=== PATIENT | female | born 1995 | race Caucasian/White ===

== ENCOUNTER 2017-12-14 11:55 | Outpatient (REF) | payer OTHER, MEDICAID, SELFPAY ==
[2017-12-14 15:03] LABS: *AMPHETAMINES SCREEN URINE Negative (Negative); *BARBITURATES SCREEN URINE Negative (Negative); *BENZODIAZEPINES SCREEN URINE Negative (Negative); Cannabinoids THC Negative (Negative); Cocaine Screen,Urine Negative (Negative); METHADONE URINE SCREEN Negative (Negative); OPIATES URINE SCREEN Negative (Negative)
[2017-12-14 15:04] LABS: Tricyclic Antidepressants Negative (Negative)
[2017-12-15 14:02] LABS: Chlamydia Result Negative; GC Result Negative; Specimen Description CERVIX
== END 2017-12-14 12:15 ==
LOC: LBN 11:55
PROVIDERS: PCP Specialist/Technologist Athletic Trainer; Visit Provider Advanced Practice Midwife
DX: N76.0 Acute vaginitis (principal); B96.89 Other specified bacterial agents as the cause of diseases classified elsewhere; Z11.3 Encounter for screening for infections with a predominantly sexual mode of transmission; Z34.91 Encounter for supervision of normal pregnancy, unspecified, first trimester
CPT/HCPCS: 80307; 87491; 87591; 87086; 87480; 87510; 87660

== ENCOUNTER 2017-12-14 12:56 | Outpatient (CLI) | payer OTHER, MEDICAID, SELFPAY ==
[2017-12-14 13:44] LABS: Abs Immature Grans 0.01 k/cumm (0.0-0.09); Absolute Basophil Count 0.01 k/cumm (0.0-0.2); Absolute Eosinophil Count 0.06 k/cumm (0.0-0.7); Absolute Lymphocyte Count 1.99 k/cumm (1.2-3.4); Absolute Monocyte Count 0.58 k/cumm (0.11-0.7); Absolute Neutrophil Count 5.33 k/cumm (1.2-6.7); Basophils % 0.1; Eosinophils % 0.8; HCT 37.7 % (36.0-46.0); HGB 12.9 g/dL (12.0-15.5); Immature Grans % 0.1; Lymphocytes % 24.9; Mean Corp. HGB Concentration 34.2 g/dL (32.0-36.0); Mean Corpuscular Hemoglobin 29.7 pg (27.0-33.0); Mean Corpuscular Volume 86.9 fL (80-95); Monocytes % 7.3; Neutrophils % 66.8; Platelet Count 224 x1000/uL (130-400); RBC 4.34 m/cumm (4.00-5.20); RBC Distribution Width 12.6 % (11.7-14.6); White Blood Cell Count 7.98 k/cumm (4.4-10.8)
[2017-12-15 09:52] LABS: Hepatitis B Surface Ag Negative (NEGAT)
[2017-12-15 10:05] LABS: HIV-1/2 Ag & Ab Screen Negative (NEGAT)
[2017-12-15 10:09] LABS: Hepatitis C Ab w Rflx HCV PCR Negative (NEGAT)
[2017-12-15 13:07] LABS: Syphilis Serology (RPR) Negative (Negative)
[2017-12-15 14:09] LABS: Rubella IgG Ab (UVM) Positive
== END 2017-12-14 13:16 ==
PROVIDERS: PCP Specialist/Technologist Athletic Trainer; Visit Provider Advanced Practice Midwife
DX: Z34.91 Encounter for supervision of normal pregnancy, unspecified, first trimester (principal)
CPT/HCPCS: 36415; 80055; 86850; 86900; 86901

== ENCOUNTER 2018-02-10 00:59 | Outpatient (CLI) | payer OTHER, MEDICAID, SELFPAY ==
--- NOTE | 2018-02-10 14:17 | DI.US_ITS ---
SYMPTOMS/DIAGNOSIS: ANATOMY SURVEY, Z34.90 OBSTETRICAL ULTRASOUND: Many abnormalities cannot be diagnosed. A normal exam does not exclude a congenital anomaly. Radiology No. [id number] LMP: Exam Date: 02/10/18 [facility] wks days on EDC ([facility]) 07/07/18 Confirmed: HISTORY: ---- PREDICTED GESTATIONAL AGE NUMBER 19+0 weeks with a range of 18+0 weeks to 20+0 weeks. 1 Determined by___1STUS___LMP___HISTORY PLACENTA PRESENTATION Grade I Cephalic___ Anterior_X__Posterior___ Breech____ Right Left Transverse(head right___ Fundal___Low-lying___Previa___ Transverse(head left___ Varying__X____ BIOMETRY AMNIOTIC FLUID BPD: 44 mm 19+2 weeks Normal HC: 165 mm 19+1 weeks AC: 142 mm 19+4 weeks FL: 29 mm 19+0 weeks AMNIOTIC FLUID INDEX >26 WK CRL: mm weeks Cisterna Magna: 4 mm CI: 79 RUQ: LUQ Cerebellum: 1.9 cm EFW: 286 grams Percentile RLQ: LLQ Total: cms Composite AGE= 19+2 wks EDC by US: 07/05/18 BIOPHYSICAL PROFILE ANATOMY IDENTIFIED SCORE 0/2 Heart: 4-Chamber_X__Rate:BPM 153 LVOT:____X RVOT:____X____ Amniotic Fluid(>2cms)____ Stomach:___X____ Kidneys:___X____ Respirations (>30 secs) Bladder:___X Post. Fossa:__X Body Flex/Extension 3-vessel cord:___X____Ventricles:___X Cord insertion:__X___ Lips:__X__ Extremity Flex/Extension Spinal morphology:__X Nose:__X___ Total Score= Palate:_X NS=not seen COMMENTS: Routine examination was performed. There is a single living intrauterine gestation. Estimated sonographic age is 19 weeks 2 days. No or placental abnormalities are identified. Please refer to the accompanying data sheets for complete details.
== END 2018-02-10 01:19 ==
PROVIDERS: PCP Specialist/Technologist Athletic Trainer; Visit Provider Advanced Practice Midwife
DX: Z34.92 Encounter for supervision of normal pregnancy, unspecified, second trimester (principal)
CPT/HCPCS: 76805

== ENCOUNTER 2018-04-05 13:53 | Outpatient (REF) | payer OTHER, MEDICAID, SELFPAY | END 2018-04-05 14:13 | LOC: LBN 13:53 | PROVIDERS: PCP Specialist/Technologist Athletic Trainer; Visit Provider Advanced Practice Midwife | DX: O26.893 Other specified pregnancy related conditions, third trimester (principal); R30.0 Dysuria | CPT/HCPCS: 87086 ==

== ENCOUNTER 2018-04-07 10:35 | Observation (INO) | payer OTHER, MEDICAID, SELFPAY ==
[2018-04-07 11:16] VITALS: BP 132/74; PULSE 118; RESP 18; TEMP 37; O2SAT 96
--- NOTE | 2018-04-07 11:32 | W.ED.GENAD ---
Discharge Plan Disposition Condition: Improving Discharge Details Chief Complaint: Urinary Reason For Visit: IUP @27W EGA, L HYDORNEPHROSIS, FLANK PAIN AND HEM Admit Date/Time: 04/07/18 14:41 Admit Provider: Coral Frank Attending Provider: Coral Frank Primary Care Provider: Bryant Wu ED Provider: Preeti Scherer Discharge Instructions Activity:: Activity as Tolerated Equipment/Supplies:: No Equipment Needed Diet:: As Tolerated Discharge Orders Discharge Orders: Discharge Order (Routine); Ordered 04/08/18 Ordered By: Coral Frank Discharge Data Discharge Date/Time-TO BE ENTERED AT DEPARTURE: 04/07/18 15:13 Medical Decision Making Sarah Boyd is a 22 y/o woman at 27 weeks GA presenting to the ED with left flank pain, nausea, fatigue. Pt without CVA or abd TTP on exam. Tachycardic. Concern for renal stone vs pyelo vs other, dehydration. Plan for UA, renal US, IVF hydration. Tylenol for pain. US per radiology: b/l mild-mod hydro, somewhat worse on left. RBCs in urine without evidence of infection. Given tachycardia, non-definitive imaging, plan for admission to OB for observation and IVF. Pt is amenable to the plan. Clinical Impression: flank pain, tachycardia Dispositon: [facility] inpatient Medical Records Medical records reviewed: Yes I reviewed the patient's medical records. Lab Data Lab results reviewed: Yes I reviewed the patient's lab results. HPI General Mode of arrival: ambulatory. Date/Time Provider Initiated Documentation: 04/07/18 11:31. Limitations to Documentation: no limitations. Information obtained by: patient, family, RN notes reviewed and old records reviewed. HPI Narrative: Sarah Boyd is a 22 y/o woman with history of asthma presenting to the emergency department with left-sided flank pain and dark urine. Patient is 27 weeks , , followed here by home health caregiver service. Patient reports that she has had an uncomplicated to date. One week ago she started to develop nausea and fatigue. 2 days ago she noticed that her urine seemed dark as if there was blood in it. Yesterday she developed left-sided flank pain, which is constant but does worsen and improve intermittently. Patient reports that her urine has remained dark. She reports that the baby is moving as usual. She has not had any vaginal bleeding. No trauma. No history of kidney stones. She denies fevers, any other pain, vomiting, diarrhea, shortness of breath, cough. No recent travel. Related Data Home Medications Medication Instructions Recorded Confirmed epinephrine [EpiPen 2-Morgan] 0.3 mg IM ONCE #1 pack 11/26/13 04/07/18 cetirizine [Zyrtec] 10 mg PO PRN PRN #30 tab-cap 09/10/14 04/07/18 ProAir HFA 2 puff INHALATION Q4H PRN #1 12/16/14 04/07/18 inhaler vitamin#30 30 mg iron-10 1 cap PO DAILY #90 cap 12/14/17 04/07/18 mg iron-folic acid 1 mg-omg3 capsule oxycodone 5 mg tablet 5 mg PO Q6H PRN #5 tab MDD 4 04/08/18 Previous Rx's Medication Instructions Recorded vitamin#30 30 mg iron-10 1 cap PO DAILY #90 cap 12/14/17 mg iron-folic acid 1 mg-omg3 capsule oxycodone 5 mg tablet 5 mg PO Q6H PRN #5 tab MDD 4 04/08/18 Allergies Allergy/AdvReac Type Severity Reaction Status Date / Time Sulfa (Sulfonamide Allergy Mild RASH Unverified 04/07/18 11:23 Antibiotics) shellfish derived Allergy hives Unverified 04/07/18 11:23 General Stated Complaint: Urinary JOLYNN: 3 Review of Systems Review of Systems Constitutional: denies fevers, reports fatigue Eyes: denies eye pain ENT: denies facial pain, dental pain, sore throat Cardiovascular: denies chest pain, edema Respiratory: denies SOB, cough GI: denies abdominal pain, vomiting, diarrhea, reports nausea : denies dysuria, reports flank pain MSK: denies back pain, neck pain, arthralgias, myalgias Skin: denies rash Neuro: denies headaches, numbness, weakness PFSH Medical History Amblyopia Herpes labialis Closed fracture of lower end of radius and ulna (Resolved) Closed fracture of elbow (Resolved) Hematuria (Acute) (Acute) Renal colic on left side (Acute) Contraception (Resolved) Family history of factor V Leiden mutation (Resolved) Social History adopted: No household members: spouse, children and other details: H- Cezar, D- Martha half-way: No current occupational status: employed 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[facility], [employer]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 [facility] Smoking/Tobacco Use Status: Never alcohol intake: never seatbelt use: always helmet use: Yes drive intox or ride w/ intox 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 water heater temp set < 120 deg: Yes working smoke detector in home: Yes fire extinguisher in home: Yes carbon monox detector in home: Yes firearms in home: Yes firearms unloaded and locked: No victim of physical abuse: No victim of emotional abuse: No victim of sexual abuse: No History History 2 Para Hx # Term Pregnancies Multiple births 0 Hx # Pregnancies Ectopic pregnancies 0 AB induced 0 Hx Number of Living Children 1 AB spontaneous 0 Exam Narrative Exam Narrative: Constitutional: well and [id number]-[id number], pleasant, conversing normally HENT: head atraumatic, normocephalic normal inspection, mucous membranes moist Eyes: conjunctiva normal, sclera normal, pupils 3mm b/l Neck: no stridor, normal ROM, trachea midline Chest: normal inspection Resp: normal work of breathing, LCTAB Cardio: tachycardic, normal rhythm, no murmur appreciated GI: agravid abdomen soft, non-tender, no CVA TTP b/l Back: normal inspection, no rash Skin: warm, dry, normal color, no rash Neuro: alert, not altered, grossly non-focal, normal tone Ext: no edema Psych: normal mood, normal affect, normal behavior Course Vital Signs Temperature 37 C 04/07/18 11:16 Pulse 118 H 04/07/18 11:16 Respiratory Rate 18 04/07/18 11:16 Blood Pressure 132/74 04/07/18 11:16 Pulse Oximetry 96 04/07/18 11:16 Temperature 37 C 04/07/18 11:16 Temperature Source Temporal Artery Scan 04/07/18 11:16 Pulse 118 H 04/07/18 11:16 Respiratory Rate 18 04/07/18 11:16 Respiratory Effort Non-Labored 04/07/18 11:21 Blood Pressure 132/74 04/07/18 11:16 Blood Pressure Position Sitting 04/07/18 11:16 Pulse Oximetry 96 04/07/18 11:16 Oxygen Delivery Method Room Air 04/07/18 11:16 Oxygen Flow Rate 0 04/07/18 11:16 Pain Level 5 04/07/18 11:16
[2018-04-07 11:44] LABS: Bilirubin Negative (Negative); Clarity Cloudy; Glucose 250 mg/dL (Negative); Ketones Trace mg/dL (Negative); Leukocyte Esterase Negative (Negative); Nitrite Negative (Negative); Specific Gravity >= 1.030 (1.005-1.025); Urobilinogen 0.2 EU/dL (Up TO 0.2)
[2018-04-07] MEDS: Normal Saline Flush 10 ML SYR IVP (11:50)
[2018-04-07] MEDS: Normal Saline 1,000 ML 1000 ML IV (11:50)
--- NOTE | 2018-04-07 11:52 | DI.US_ITS ---
SYMPTOMS/DIAGNOSIS: LT FLANK PAIN, HEMATURIA, 27 WKS RENAL ULTRASOUND: Routine examination. The right kidney measures 10 cm long. There is mild prominence of the right renal collecting system. No renal calculi or mass is seen. The left kidney measures 10.2 cm long. There is mild to moderate dilatation of the left renal collecting system. No renal calculi or mass is present. The prevoid urinary bladder volume was 70 cc's. The patient completely emptied upon voiding. Both ureteral jets were visualized. No intraluminal masses are seen. IMPRESSION: Mild dilatation of both renal collecting systems, left greater than right. Obstruction can not be excluded.
[2018-04-07 11:53] LABS: C & S Indicated? Yes; RBC >50 (0-2)
[2018-04-07 11:56] LABS: Blood Large (Negative)
[2018-04-07 11:59] LABS: Abs Immature Grans 0.01 k/cumm (0.0-0.09); Absolute Basophil Count 0.02 k/cumm (0.0-0.2); Absolute Eosinophil Count 0.06 k/cumm (0.0-0.7); Absolute Lymphocyte Count 2.47 k/cumm (1.2-3.4); Absolute Monocyte Count 0.81 k/cumm (0.11-0.7); Absolute Neutrophil Count 4.83 k/cumm (1.2-6.7); Basophils % 0.2; Eosinophils % 0.7; HCT 35.5 % (36.0-46.0); HGB 11.8 g/dL (12.0-15.5); Immature Grans % 0.1; Lymphocytes % 30.1; Mean Corp. HGB Concentration 33.2 g/dL (32.0-36.0); Mean Corpuscular Hemoglobin 29.9 pg (27.0-33.0); Mean Corpuscular Volume 89.9 fL (80-95); Mean Platelet Volume 8.9 fL (8.0-11.0); Monocytes % 9.9; Platelet Count 238 x1000/uL (130-400); RBC 3.95 m/cumm (4.00-5.20); RBC Distribution Width 12.1 % (11.7-14.6)
[2018-04-07 12:15] LABS: ALT 10 U/L (12-78); AST 12 U/L (15-37); Albumin 2.6 g/dL (3.4-5.0); Alkaline Phosphatase 86 U/L (46-116); Anion Gap 7.6 mmol/L (3-11); BUN 8 mg/dL (7-18); Bilirubin, Total 0.1 mg/dL (0.2-1.0); CO2 27.4 mmol/L (21.0-32.0); CREATININE 0.57 mg/dL (0.55-1.02); Calcium 8.6 mg/dL (8.5-10.1); Chloride 104 mmol/L (98-107); Glucose 83 mg/dL (70-100); Potassium 3.4 mmol/L (3.5-5.1); Sodium 139 mmol/L (136-145); Total Protein 6.6 g/dL (6.4-8.2)
[2018-04-07 14:03] VITALS: BP 108/58; PULSE 96; RESP 14; TEMP 37.1; O2SAT 98
[2018-04-07] MEDS: Acetaminophen 325 MG TAB 650 MG PO (14:22)
[2018-04-07] MEDS: Normal Saline 1,000 ML 150 ML IV (14:24)
[2018-04-07 15:05] VITALS: BP 108/58; PULSE 96; RESP 14; TEMP 37.1; O2SAT 98
--- NOTE | 2018-04-07 15:24 | W.PM.HP.N ---
Date of service: 04/07/18 Time of Service: 15:28 Assessment and Plan (1) Hematuria: Current visit: Yes Status: Acute Patient with a dilated renal collecting system without evidence of left or right nephrolithiasis. Plan at this time is to admit strain her urine and administer analgesics. Her vital signs have been stable previous urine culture from 04/05/2018 is negative and a repeat urine culture is pending. Qualifiers: Hematuria type: gross Qualified Code(s): R31.0 - Gross hematuria (2) : Current visit: Yes Status: Acute No evidence of focal uterine tenderness. I discussed treatment options for her pain with the patient she would prefer to avoid narcotics if possible. However at the present time she has not had significant relief from her left flank pain with the acetaminophen. The plan is to begin oxycodone 5 mg 1 tablet every 4 hours as needed for pain Qualifiers: Weeks of gestation: 27 weeks Qualified Code(s): Z3A.27 - 27 weeks gestation of (3) Acute left flank pain: Current visit: Yes Status: Acute Possible left nephrolithiasis. Currently no evidence of infection. She will remain hospitalized overnight and pain level will be assessed. Plan vigorous IV hydration and to strain all urine. History of Present Illness Chief Complaint: Left flank pain, hematuria times 48 hours Narrative: Patient is a 22-year old female currently 27 weeks estimated gestational age with a estimated delivery date of 07/07/2018 who has been followed by the [facility] service since her first trimester. She has had an unremarkable course until she [facility]. At that time she reported worsening headaches abdominal cramping and pink tinge discharge after voiding. The urine culture performed on 04/05/2018 was negative with mixed growth. Patient continued to feel poorly and by the morning of her evaluation on 04/07/2018 she had significant flank pain and increasing hematuria. No complaints of nausea vomiting fever or right sided flank pain. No focal uterine tenderness. In the emergency room an urinalysis was performed and a urine culture sent. There is no evidence of leukocyte esterase or nitrates however there was blood noted on urinalysis. Renal ultrasound showed mild dilation mild to moderate dilation of the renal collecting system left greater than right. No evidence of stones. Patient is not in extreme discomfort but I feel it would be better served being observed on the center with IV hydration and possible additional pain medication Review of Systems Constitutional Reports difficulty sleeping (Secondary to pain) Gastrointestinal Reports change in bowel habits (Loose stools) Genitourinary Reports hematuria (Noted on toilet tissue) and Reports flank pain (Left-sided) Comments: No focal uterine tenderness Musculoskeletal Reports back pain (Left-sided flank pain) [facility] Social History adopted: No current occupational status: employed 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 Smoking/Tobacco Use Status: Never alcohol intake: never seatbelt use: always helmet use: Yes drive intox or ride w/ intox 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 water heater temp set < 120 deg: Yes working smoke detector in home: Yes fire extinguisher in home: Yes carbon monox detector in home: Yes firearms in home: Yes firearms unloaded and locked: No victim of physical abuse: No victim of emotional abuse: No victim of sexual abuse: No History History 2 Para Hx # Term Pregnancies Multiple births 0 Hx # Pregnancies Ectopic pregnancies 0 AB induced 0 Hx Number of Living Children 1 AB spontaneous 0 Meds Home Medications Medication Instructions Recorded Confirmed Type epinephrine [EpiPen 2-Morgan] 0.3 mg IM ONCE #1 pack 11/26/13 04/07/18 History cetirizine [Zyrtec] 10 mg PO PRN PRN #30 tab-cap 09/10/14 04/07/18 History ProAir HFA 2 puff INHALATION Q4H PRN #1 12/16/14 04/07/18 History inhaler vitamin#30 30 mg iron-10 1 cap PO DAILY #90 cap 12/14/17 04/07/18 Rx mg iron-folic acid 1 mg-omg3 capsule Allergies Allergy/AdvReac Type Severity Reaction Status Date / Time Sulfa (Sulfonamide Allergy Mild RASH Unverified 04/07/18 11:23 Antibiotics) shellfish derived Allergy hives Unverified 04/07/18 11:23 Exam Const General: cooperative, no acute distress (With CVA percussion of the left side), ill appearing (Lying on her left side side) and well hydrated Nutritional Appearance: average body habitus Orientation: alert, awake and oriented x3 Chest Chest: normal inspection of the chest Resp Effort & Inspection: normal respiratory effort Auscultation: clear to auscultation bilaterally Cardio Palpation: normal PMI Rate: regular rate Rhythm: regular rhythm Heart Sounds: S1 normal and S2 normal GI Palpation: soft and no hepatosplenomegaly General: CVA tenderness on the left External Female Exam: other OB/External & Speculum: external exam normal (Gravid approximate 27 cm fundal height heart tones in the right upper) Results Labs : 04/07/18 11:50 04/07/18 11:50 Laboratory Results - last 24 hr 04/07/18 04/07/18 04/07/18 11:28 11:28 11:50 WBC RBC Hgb Hct MCV MCH MCHC RDW Plt Count MPV Immature Gran % Neutrophils % Lymphocytes % Monocytes % Eosinophils % Basophils % Absolute Neutrophils Absolute Lymphocytes Absolute Monocytes Absolute Eosinophils Absolute Basophils Sodium 139 Potassium 3.4 L Chloride 104 Carbon Dioxide 27.4 Anion Gap 7.6 BUN 8 Creatinine 0.57 Estimated GFR/1.73 m2 >= 60.00 Glucose 83 Calcium 8.6 Total Bilirubin 0.1 L AST 12 L ALT 10 L Alkaline Phosphatase 86 Total Protein 6.6 Albumin 2.6 L Urine Color Brown Urine Clarity Cloudy Urine pH 7.0 Ur Specific [employer] >= 1.030 H Urine Protein 100 H Urine Ketones Trace H Urine Blood Large H Urine Nitrite Negative Urine Bilirubin Negative Urine Urobilinogen 0.2 Ur Leukocyte Esterase Negative Urine RBC >50 H Cancelled Urine WBC Not Applicable Cancelled Ur Epithelial Cells Not Applicable Cancelled Urine Crystals Not Applicable Cancelled Urine Bacteria Not Applicable Cancelled Urine Casts Cancelled Urine Mucus Not Applicable Cancelled Urine Other Cancelled Ur Culture Indicated? Yes Cancelled Urine Glucose 250 H 04/07/18 11:50 WBC 8.20 RBC 3.95 L Hgb 11.8 L Hct 35.5 L MCV 89.9 MCH 29.9 MCHC 33.2 RDW 12.1 Plt Count 238 MPV 8.9 Immature Gran % 0.1 Neutrophils % 59.0 Lymphocytes % 30.1 Monocytes % 9.9 Eosinophils % 0.7 Basophils % 0.2 Absolute Neutrophils 4.83 Absolute Lymphocytes 2.47 Absolute Monocytes 0.81 H Absolute Eosinophils 0.06 Absolute Basophils 0.02 Sodium Potassium Chloride Carbon Dioxide Anion Gap BUN Creatinine Estimated GFR/1.73 m2 Glucose Calcium Total Bilirubin AST ALT Alkaline Phosphatase Total Protein Albumin Urine Color Urine Clarity Urine pH Ur Specific [employer] Urine Protein Urine Ketones Urine Blood Urine Nitrite Urine Bilirubin Urine Urobilinogen Ur Leukocyte Esterase Urine RBC Urine WBC Ur Epithelial Cells Urine Crystals Urine Bacteria Urine Casts Urine Mucus Urine Other Ur Culture Indicated? Urine Glucose Last Vital Signs Temp 98.8 F 04/07/18 14:03 Pulse 96 H 04/07/18 14:03 Resp 14 04/07/18 14:03 BP 108/58 L 04/07/18 14:03 Pulse Ox 98 04/07/18 14:03
[2018-04-07] MEDS: Lactated Ringers 1,000 ML 150 ML IV (15:30)
--- NOTE | 2018-04-07 15:30 | HPE_ITS ---
Date of service: 04/07/18 Time of Service: 15:28 Assessment and Plan (1) Hematuria: Current visit: Yes Status: Acute Patient with a dilated renal collecting system without evidence of left or right nephrolithiasis. Plan at this time is to admit strain her urine and administer analgesics. Her vital signs have been stable previous urine culture from 04/05/2018 is negative and a repeat urine culture is pending. Qualifiers: Hematuria type: gross Qualified Code(s): R31.0 - Gross hematuria (2) : Current visit: Yes Status: Acute No evidence of focal uterine tenderness. I discussed treatment options for her pain with the patient she would prefer to avoid narcotics if possible. However at the present time she has not had significant relief from her left fla nk pain with the acetaminophen. The plan is to begin oxycodone 5 mg 1 tablet every 4 hours as needed for pain Qualifiers: Weeks of gestation: 27 weeks Qualified Code(s): Z3A.27 - 27 weeks gestation of (3) Acute left flank pain: Current visit: Yes Status: Acute Possible left nephrolithiasis. Currently no evidence of infection. She will remain hospitalized overnight and pain level will be assessed. Plan vigorous IV hydration and to strain all urine. History of Present Illness Chief Complaint: Left flank pain, hematuria times 48 hours Narrative: Patient is a 22-year old female currently 27 weeks estimated gestational age with a estimated delivery date of 07/07/2018 who has been followed by the [facility] service since her first trimester. She has had an unremarkable course until she presented [facility] on [facility]. At that time she reported worsening headaches abdominal cramping and pink tinge discharge after voiding. The urine culture performed on 04/05/2018 was negative with mixed growth. Patient continued to feel poorly and by the morning of her evaluation on 04/07/2018 she had significant flank pain and increasing hematuria. No complaints of nausea vomiting fever or right sided flank pain. No focal uterine tenderness. In the emergency room an urinalysis was performed and a urine culture sent. T here is no evidence of leukocyte esterase or nitrates however there was blood noted on urinalysis. Renal ultrasound showed mild dilation mild to moderate dilation of the renal collecting system left greater than right. No evidence of stones. 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 Smoking/Tobacco Use Status: Never alcohol intake: never seatbelt use: always helmet use: Yes drive intox or ride w/ intox 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: No water heater temp set < 120 deg: Yes working smoke detector in home: Yes fire extinguisher in home: Yes carbon monox detector in home: Yes firearms in home: Yes firearms unloaded and locked: No victim of physical abuse: No victim of emotional abuse: No victim of sexual abuse: No History History 2 Para Hx # Term Pregnancies Multiple births 0 Hx # Pregnancies Ectopic pregnancies 0 AB induced 0 Hx Number of Living Children 1 AB spontaneous 0 Meds Home Medications Medication Instructions Recorded Confirmed Type epinephrine [EpiPen 2-Morgan] 0.3 mg IM ONCE #1 pack 11/26/13 04/07/18 History cetirizine [Zyrtec] 10 mg PO PRN PRN #30 tab-cap 09/10/14 04/07/18 History ProAir HFA 2 puff INHALATION Q4H PRN #1 12/16/14 04/07/18 History inhaler vitamin#30 30 mg iron-10 1 cap PO DAILY #90 cap 12/14/17 04/07/18 Rx mg iron-folic acid 1 mg-omg3 capsule Allergies Allergy/AdvReac Type Severity Reaction Status Date / Time Sulfa (Sulfonamide Allergy Mild RASH Unverified 04/07/18 11:23 Antibiotics) shellfish derived Allergy hives Unverified 04/07/18 11:23 Exam Const General: cooperative, no acute distress (With CVA percussion of the left side), ill appearing (Lying on her left side side) and well hydrated Nutritional Appearance: average body habitus Orientation: alert, awake and oriented x3 Chest Chest: normal inspection of the chest Resp Effort & Inspection: normal respiratory effort Auscultation: clear to auscultation bilaterally Cardio Palpation: normal PMI Rate: regular rate Rhythm: regular rhythm Heart Sounds: S1 normal and S2 normal GI Palpation: soft and no hepatosplenomegaly General: CVA tenderness on the left External Female Exam: other OB/External & Speculum: external exam normal (Gravid approximate 27 cm fundal height heart tones in the right upper) Results Labs : 04/07/18 11:50 04/07/18 11:50 Laboratory Results - last 24 hr 04/07/18 04/07/18 04/07/18 11:28 11:28 11:50 WBC RBC Hgb Hct MCV MCH MCHC RDW Plt Count MPV Immature Gran % Neutrophils % Lymphocytes % Monocytes % Eosinophils % Basophils % Absolute Neutrophils Absolute Lymphocytes Absolute Monocytes Absolute Eosinophils Absolute Basophils Sodium 139 Potassium 3.4 L Chloride 104 Carbon Dioxide 27.4 Anion Gap 7.6 BUN 8 Creatinine 0.57 Estimated GFR/1.73 m2 >= 60.00 Glucose 83 Calcium 8.6 Total Bilirubin 0.1 L AST 12 L ALT 10 L Alkaline Phosphatase 86 Total Protein 6.6 Albumin 2.6 L Urine Color Brown Urine Clarity Cloudy Urine pH 7.0 Ur Specific [place] >= 1.030 H Urine Protein 100 H Urine Ketones Trace H Urine Blood Large H Urine Nitrite Negative Urine Bilirubin Negative Urine Urobilinogen 0.2 Ur Leukocyte Esterase Negative Urine RBC >50 H Cancelled Urine WBC Not Applicable Cancelled Ur Epithelial Cells Not Applicable Cancelled Urine Crystals Not Applicable Cancelled Urine Bacteria Not Applicable Cancelled Urine Casts Cancelled Urine Mucus Not Applicable Cancelled Urine Other Cancelled Ur Culture Indicated? Yes Cancelled Urine Glucose 250 H 04/07/18 11:50 WBC 8.20 RBC 3.95 L Hgb 11.8 L Hct 35.5 L MCV 89.9 MCH 29.9 MCHC 33.2 RDW 12.1 Plt Count 238 MPV 8.9 Immature Gran % 0.1 Neutrophils % 59.0 Lymphocytes % 30.1 Monocytes % 9.9 Eosinophils % 0.7 Basophils % 0.2 Absolute Neutrophils 4.83 Absolute Lymphocytes 2.47 Absolute Monocytes 0.81 H Absolute Eosinophils 0.06 Absolute Basophils 0.02 Sodium Potassium Chloride Carbon Dioxide Anion Gap BUN Creatinine Estimated GFR/1.73 m2 Glucose Calcium Total Bilirubin AST ALT Alkaline Phosphatase Total Protein Albumin Urine Color Urine Clarity Urine pH Ur Specific [place] Urine Protein Urine Ketones Urine Blood Urine Nitrite Urine Bilirubin Urine Urobilinogen Ur Leukocyte Esterase Urine RBC Urine WBC Ur Epithelial Cells Urine Crystals Urine Bacteria Urine Casts Urine Mucus Urine Other Ur Culture Indicated? Urine Glucose Last Vital Signs Temp 98.8 F 04/07/18 14:03 Pulse 96 H 04/07/18 14:03 Resp 14 04/07/18 14:03 BP 108/58 L 04/07/18 14:03 Pulse Ox 98 04/07/18 14:03
[2018-04-07] MEDS: oxyCODONE 5 MG TAB PO (17:53)
--- NOTE | 2018-04-08 08:40 | W.PM.DS.N ---
DS: Diagnosis Discharge Diagnosis (1) Hematuria: Status: Acute (2) : Status: Acute (3) Acute left flank pain: Status: Acute (4) : Status: Acute (5) Renal colic on left side: Status: Acute (6) Hematuria: Status: Acute Discharge Plan Disposition Patient Disposition: HOME Condition: Improving Discharge Details Reason For Visit: IUP @[address] ALMANZAR HYDORNEPHROSIS, FLANK PAIN AND HEM Admit Date/Time: 04/07/18 14:41 Admit Provider: Coral Frank Attending Provider: Coral Frank Primary Care Provider: Bryant Wu Hospital Course Hospital Course: Patient was admitted to the emergency room at [facility] on 04/07/2017 with 48 hours of worsening left flank pain. Renal ultrasound showed bilateral mild/moderate hydronephrosis with no evidence of obstructing stone. She was admitted for observation and pain management overnight. Patient had one oxycodone with good results and otherwise had Tylenol for discomfort. Her hematuria improved as noted on spontaneous voids. No stones were collected by urine strainer. She will follow-up with the CNM service and if pain recurs we will have an evaluation by Dr. Abarca the [facility] urologist Home Meds and New Rx's Prescriptions: No Action PNV #[id number] acid-[id number] 30 mg iron-10 mg iron-1 mg capsule 1 cap PO DAILY Qty: 90 RF: 5 epinephrine [EpiPen 2-Morgan] 0.3 MG/0.3 ML auto-injector 0.3 mg IM ONCE Qty: 1 RF: 1 cetirizine [Zyrtec] 10 MG tablet,chewable 10 mg PO PRN PRNQty: 30 RF: 0 ProAir HFA 8.5 GM HFA aerosol inhaler 2 puff Inhalation Q4H PRN Qty: 1 RF: 1 oxycodone 5 mg tablet 5 mg PO Q6H MDD 4 PRN (Reason: pain) Qty: 5 RF: 0 Discharge Instructions Additional Instructions: You may return to work on Tuesday as needed. Prescription for oxycodone 5 mg #5 dispensed to be used for severe pain every 6 hours and iutf-[id number] acetaminophen 325 mg every 4 hours as needed for pain. Activity:: Activity as Tolerated Equipment/Supplies:: No Equipment Needed Diet:: As Tolerated Discharge Orders Discharge Orders: Discharge Order (Routine); Ordered 04/08/18 Ordered By: Coral Frank Exam Const General: comfortable and no acute distress Nutritional Appearance: average body habitus Orientation: alert, awake and oriented x3 GI Palpation: soft and no hepatosplenomegaly General: CVA tenderness on the left (Pain has decreased in intensity but still present to percussion.) Other: Uterus gravid no focal tenderness. heart tones present during the night Skin General skin exam: no rashes or lesions noted DS: Data Vitals/I&O Vitals and I&O: Vital Signs Temperature 98.8 F 04/07/18 15:05 Temperature Source Skin 04/07/18 14:03 Pulse 96 H 04/07/18 15:05 Respiratory Rate 14 04/07/18 15:05 Respiratory Effort Non-Labored 04/07/18 11:21 Blood Pressure 108/58 L 04/07/18 15:05 Blood Pressure Position Sitting 04/07/18 11:16 Pulse Oximetry 98 04/07/18 15:05 Oxygen Delivery Method Room Air 04/07/18 14:03 Oxygen Flow Rate 0 04/07/18 14:03 Pain Level 3 04/07/18 18:53 Intake & Output 04/07/18 04/07/18 04/08/18 11:59 23:59 11:59 Intake Total 1999.0 / 1999.0 Balance 1999.0 / 1999.0 Weight 138 lb 0.009 oz Intake: IV 1999.0 / 1999.0 Labs on day of discharge: Labs from last 24 hours 04/07/18 04/07/18 04/07/18 11:50 11:50 11:28 WBC 8.20 RBC 3.95 L Hgb 11.8 L Hct 35.5 L MCV 89.9 MCH 29.9 MCHC 33.2 RDW 12.1 Plt Count 238 MPV 8.9 Immature Gran % 0.1 Neutrophils % 59.0 Lymphocytes % 30.1 Monocytes % 9.9 Eosinophils % 0.7 Basophils % 0.2 Absolute Neutrophils 4.83 Absolute Lymphocytes 2.47 Absolute Monocytes 0.81 H Absolute Eosinophils 0.06 Absolute Basophils 0.02 Sodium 139 Potassium 3.4 L Chloride 104 Carbon Dioxide 27.4 Anion Gap 7.6 BUN 8 Creatinine 0.57 Estimated GFR/1.73 m2 >= 60.00 Glucose 83 Calcium 8.6 Total Bilirubin 0.1 L AST 12 L ALT 10 L Alkaline Phosphatase 86 Total Protein 6.6 Albumin 2.6 L Urine Color Urine Clarity Urine pH Ur Specific [place] Urine Protein Urine Ketones Urine Blood Urine Nitrite Urine Bilirubin Urine Urobilinogen Ur Leukocyte Esterase Urine RBC Cancelled Urine WBC Cancelled Ur Epithelial Cells Cancelled Urine Crystals Cancelled Urine Bacteria Cancelled Urine Casts Cancelled Urine Mucus Cancelled Urine Other Cancelled Ur Culture Indicated? Cancelled Urine Glucose 04/07/18 11:28 WBC RBC Hgb Hct MCV MCH MCHC RDW Plt Count MPV Immature Gran % Neutrophils % Lymphocytes % Monocytes % Eosinophils % Basophils % Absolute Neutrophils Absolute Lymphocytes Absolute Monocytes Absolute Eosinophils Absolute Basophils Sodium Potassium Chloride Carbon Dioxide Anion Gap BUN Creatinine Estimated GFR/1.73 m2 Glucose Calcium Total Bilirubin AST ALT Alkaline Phosphatase Total Protein Albumin Urine Color Brown Urine Clarity Cloudy Urine pH 7.0 Ur Specific [place] >= 1.030 H Urine Protein 100 H Urine Ketones Trace H Urine Blood Large H Urine Nitrite Negative Urine Bilirubin Negative Urine Urobilinogen 0.2 Ur Leukocyte Esterase Negative Urine RBC >50 H Urine WBC Not Applicable Ur Epithelial Cells Not Applicable Urine Crystals Not Applicable Urine Bacteria Not Applicable Urine Casts Urine Mucus Not Applicable Urine Other Ur Culture Indicated? Yes Urine Glucose 250 H 04/07/18 11:28 Urine - Reflex from Urine Culture - Pending Preliminary micro results at discharge 04/07/18 11:28 Urine Culture - Pending Urine - Reflex from [facility] Medical History Amblyopia Herpes labialis Closed fracture of lower end of radius and ulna (Resolved) Closed fracture of elbow (Resolved) Hematuria (Acute) (Acute) Renal colic on left side (Acute) Contraception (Resolved) Family history of factor V Leiden mutation (Resolved) Social History adopted: No household members: spouse, children and other details: Ngozi RobbManisha marital status: Elvia senior living: No current occupational status: employed 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[employer], 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 [employer] Smoking/Tobacco Use Status: Never alcohol intake: never seatbelt use: always helmet use: Yes drive 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
--- NOTE | 2018-04-08 08:50 | DSE_ITS ---
DS: Diagnosis Discharge Diagnosis (1) Hematuria: Status: Acute (2) : Status: Acute (3) Acute left flank pain: Status: Acute (4) : Status: Acute (5) Renal colic on left side: Status: Acute (6) Hematuria: Status: Acute Discharge Plan Disposition Patient Disposition: HOME Condition: Improving Discharge Details Reason For Visit: IUP @[address] ALMANZAR HYDORNEPHROSIS, FLANK PAIN AND HEM Admit Date/Time: 04/07/18 14:41 Admit Provider: Coral Frank Attending Provider: Coral Frank Primary Care Provider: Bryant Wu Hospital Course Hospital Course: Patient was admitted to the emergency room at [facility] on 04/07/2017 with 48 hours of worsening left flank pain. Renal ultrasound showed bilateral mild/moderate hydronephrosis with no evidence of obstructing stone. She was admitted for observation and pain management overnight. Patient had one oxycodone with good results and otherwise had Tylenol for discomfort. Her hematuria improved as noted on spontaneous voids. No stones were collected by urine strainer. She will follow-up with the CNM service and if pain recurs we will have an evaluation by Dr. Abarca the [facility] urologist Home Meds and New Rx's Prescriptions: No Action PNV #[id number] acid-omega3 30 mg iron-10 mg iron-1 mg capsule 1 cap PO DAILY Qty: 90 RF: 5 epinephrine [EpiPen 2-Morgan] 0.3 MG/0.3 ML auto-injector 0.3 mg IM ONCE Qty: 1 RF: 1 cetirizine [Zyrtec] 10 MG tablet,chewable 10 mg PO PRN PRNQty: 30 RF: 0 ProAir HFA 8.5 GM HFA aerosol inhaler 2 puff Inhalation Q4H PRN Qty: 1 RF: 1 oxycodone 5 mg tablet 5 mg PO Q6H MDD 4 PRN (Reason: pain) Qty: 5 RF: 0 Discharge Instructions Additional Instructions: You may return to work on Tuesday as needed. Prescription for oxycodone 5 mg #5 dispensed to be used for severe pain every 6 hours and nvyx-clo-[id number] acetaminophen 325 mg every 4 hours as needed for pain. Activity:: Activity as Tolerated Equipment/Supplies:: No Equipment Needed Diet:: As Tolerated Discharge Orders Discharge Orders: Discharge Order (Routine); Ordered 04/08/18 Ordered By: Coral Frank Exam Const General: comfortable and no acute distress Nutritional Appearance: average body habitus Orientation: alert, awake and oriented x3 GI Palpation: soft and no hepatosplenomegaly General: CVA tenderness on the left (Pain has decreased in intensity but still present to percussion.) Other: Uterus gravid no focal tenderness. heart tones present during the night Skin General skin exam: no rashes or lesions noted DS: Data Vitals/I&O Vitals and I&O: Vital Signs Temperature 98.8 F 04/07/18 15:05 Temperature Source Skin 04/07/18 14:03 Pulse 96 H 04/07/18 15:05 Respiratory Rate 14 04/07/18 15:05 Respiratory Effort Non-Labored 04/07/18 11:21 Blood Pressure 108/58 L 04/07/18 15:05 Blood Pressure Position Sitting 04/07/18 11:16 Pulse Oximetry 98 04/07/18 15:05 Oxygen Delivery Method Room Air 04/07/18 14:03 Oxygen Flow Rate 0 04/07/18 14:03 Pain Level 3 04/07/18 18:53 Intake & Output 04/07/18 04/07/18 04/08/18 11:59 23:59 11:59 Intake Total 1999.0 / 1999.0 Balance 1999.0 / 1999.0 Weight 138 lb 0.009 oz Intake: IV 1999.0 / 1999.0 Labs on day of discharge: Labs from last 24 hours 04/07/18 04/07/18 04/07/18 11:50 11:50 11:28 WBC 8.20 RBC 3.95 L Hgb 11.8 L Hct 35.5 L MCV 89.9 MCH 29.9 MCHC 33.2 RDW 12.1 Plt Count 238 MPV 8.9 Immature Gran % 0.1 Neutrophils % 59.0 Lymphocytes % 30.1 Monocytes % 9.9 Eosinophils % 0.7 Basophils % 0.2 Absolute Neutrophils 4.83 Absolute Lymphocytes 2.47 Absolute Monocytes 0.81 H Absolute Eosinophils 0.06 Absolute Basophils 0.02 Sodium 139 Potassium 3.4 L Chloride 104 Carbon Dioxide 27.4 Anion Gap 7.6 BUN 8 Creatinine 0.57 Estimated GFR/1.73 m2 >= 60.00 Glucose 83 Calcium 8.6 Total Bilirubin 0.1 L AST 12 L ALT 10 L Alkaline Phosphatase 86 Total Protein 6.6 Albumin 2.6 L Urine Color Urine Clarity Urine pH Ur Specific [place] Urine Protein Urine Ketones Urine Blood Urine Nitrite Urine Bilirubin Urine Urobilinogen Ur Leukocyte Esterase Urine RBC Cancelled Urine WBC Cancelled Ur Epithelial Cells Cancelled Urine Crystals Cancelled Urine Bacteria Cancelled Urine Casts Cancelled Urine Mucus Cancelled Urine Other Cancelled Ur Culture Indicated? Cancelled Urine Glucose 04/07/18 11:28 WBC RBC Hgb Hct MCV MCH MCHC RDW Plt Count MPV Immature Gran % Neutrophils % Lymphocytes % Monocytes % Eosinophils % Basophils % Absolute Neutrophils Absolute Lymphocytes Absolute Monocytes Absolute Eosinophils Absolute Basophils Sodium Potassium Chloride Carbon Dioxide Anion Gap BUN Creatinine Estimated GFR/1.73 m2 Glucose Calcium Total Bilirubin AST ALT Alkaline Phosphatase Total Protein Albumin Urine Color Brown Urine Clarity Cloudy Urine pH 7.0 Ur Specific [place] >= 1.030 H Urine Protein 100 H Urine Ketones Trace H Urine Blood Large H Urine Nitrite Negative Urine Bilirubin Negative Urine Urobilinogen 0.2 Ur Leukocyte Esterase Negative Urine RBC >50 H Urine WBC Not Applicable Ur Epithelial Cells Not Applicable Urine Crystals Not Applicable Urine Bacteria Not Applicable Urine Casts Urine Mucus Not Applicable Urine Other Ur Culture Indicated? Yes Urine Glucose 250 H 04/07/18 11:28 Urine - Reflex from Urine Culture - Pending Preliminary micro results at discharge 04/07/18 11:28 Urine Culture - Pending Urine - Reflex from [facility] Medical History Amblyopia Herpes labialis Closed fracture of lower end of radius and ulna (Resolved) Closed fracture of elbow (Resolved) Hematuria (Acute) (Acute) Renal colic on left side (Acute) Contraception (Resolved) Family history of factor V Leiden mutation (Resolved) Social History adopted: No household members: spouse, children and other details: Ngozi RobbManisha marital status: Elvia correction: No current occupational status: employed 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[employer], 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 [employer] Smoking/Tobacco Use Status: Never alcohol intake: never seatbelt use: always helmet use: Yes drive 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
[2018-04-08] MEDS: Acetaminophen 325 MG TAB PO (09:31)
== END 2018-04-08 10:10 | disposition home or self-care (01) ==
LOC: ER 12:46 → OBS 15:10
PROVIDERS: Admitting Provider Obstetrics & Gynecology Gynecology; Emergency Provider Student in an Organized Health Care Education/Training Program; PCP Specialist/Technologist Athletic Trainer; Visit Provider Obstetrics & Gynecology Gynecology
DX: R31.0 Gross hematuria (principal); R10.32 Left lower quadrant pain; Z3A.27 27 weeks gestation of pregnancy; N23 Unspecified renal colic
CPT/HCPCS: 36415; 76770; 80053; 96360; 96361; 99219; 99238; 99285; 81003; 81015; 85025; 87086; G0378

== ENCOUNTER 2018-04-21 14:25 | Outpatient (CLI) | payer OTHER, MEDICAID, SELFPAY ==
[2018-04-21 14:44] LABS: HGB 11.6 g/dL (12.0-15.5); Mean Corp. HGB Concentration 32.2 g/dL (32.0-36.0); Platelet Count 240 x1000/uL (130-400); RBC Distribution Width 12.4 % (11.7-14.6); White Blood Cell Count 9.74 k/cumm (4.4-10.8)
[2018-04-21 14:46] LABS: Glucose,1 Hr (Glucola) 104 mg/dL (80-140)
== END 2018-04-21 14:45 ==
PROVIDERS: PCP Specialist/Technologist Athletic Trainer; Visit Provider Advanced Practice Midwife
DX: Z34.93 Encounter for supervision of normal pregnancy, unspecified, third trimester (principal)
CPT/HCPCS: 36415; 82950; 85027

== ENCOUNTER 2018-06-15 14:24 | Outpatient (REF) | payer OTHER, MEDICAID, SELFPAY | END 2018-06-15 14:44 | LOC: LBN 14:24 | PROVIDERS: PCP Specialist/Technologist Athletic Trainer; Visit Provider Advanced Practice Midwife | DX: Z34.93 Encounter for supervision of normal pregnancy, unspecified, third trimester (principal); Z36.85 Encounter for antenatal screening for Streptococcus B | CPT/HCPCS: 87081 ==

== ENCOUNTER 2018-06-29 14:12 | Outpatient (CLI) | payer MEDICAID, OTHER, SELFPAY ==
[2018-06-29 15:30] LABS: HCT 34.2 % (36.0-46.0); HGB 10.8 g/dL (12.0-15.5); Mean Corp. HGB Concentration 31.6 g/dL (32.0-36.0); Mean Corpuscular Hemoglobin 26.3 pg (27.0-33.0); Mean Corpuscular Volume 83.4 fL (80-95); Mean Platelet Volume 9.6 fL (8.0-11.0); Platelet Count 194 x1000/uL (130-400); RBC Distribution Width 13.7 % (11.7-14.6); White Blood Cell Count 9.54 k/cumm (4.4-10.8)
[2018-06-29 15:37] LABS: PROTEIN 12.3 mg/dL
[2018-06-29 15:39] LABS: Anion Gap 10.4 mmol/L (3-11); BUN 7 mg/dL (7-18); CO2 24.6 mmol/L (21.0-32.0); Calcium 8.8 mg/dL (8.5-10.1); Chloride 103 mmol/L (98-107); Glucose 146 mg/dL (70-100); Potassium 3.8 mmol/L (3.5-5.1); Sodium 138 mmol/L (136-145)
[2018-06-29 15:44] LABS: ALT 12 U/L (12-78); AST 13 U/L (15-37); Albumin 2.4 g/dL (3.4-5.0); Alkaline Phosphatase 201 U/L (46-116); Bilirubin, Direct 0.06 mg/dL (0.00-0.20); Bilirubin, Total 0.2 mg/dL (0.2-1.0); CREATININE 0.61 mg/dL (0.55-1.02); Total Protein 6.7 g/dL (6.4-8.2); Uric Acid 3.2 mg/dL (2.6-6.0)
[2018-06-29 15:46] LABS: COMMENT (LAB VIEW ONLY) 73.18 mg/dL; Prot/Crea Ur Ratio 0.16
== END 2018-06-29 14:32 ==
PROVIDERS: PCP Specialist/Technologist Athletic Trainer; Visit Provider Advanced Practice Midwife
DX: O26.893 Other specified pregnancy related conditions, third trimester (principal); R03.0 Elevated blood-pressure reading, without diagnosis of hypertension; R00.2 Palpitations; Z3A.38 38 weeks gestation of pregnancy
CPT/HCPCS: 36415; 80048; 80076; 85027; 59025; 82565; 84156; 84550

== ENCOUNTER 2018-06-30 17:09 | Outpatient (CLI) | payer OTHER, MEDICAID, SELFPAY ==
[2018-06-30] MEDS: Butalbital/Acetaminophen/Caffeine 50/325/40 TAB PO (18:03)
[2018-06-30 19:24] LABS: PROTEIN 7.6 mg/dL
[2018-06-30 19:41] LABS: COMMENT (LAB VIEW ONLY) 59.96 mg/dL; Prot/Crea Ur Ratio 0.12
== END 2018-06-30 17:29 ==
PROVIDERS: PCP Specialist/Technologist Athletic Trainer; Visit Provider Advanced Practice Midwife
DX: O13.3 Gestational [pregnancy-induced] hypertension without significant proteinuria, third trimester (principal); Z3A.39 39 weeks gestation of pregnancy
CPT/HCPCS: 59025; 82565; 84156

== ENCOUNTER 2018-07-02 10:21 | Outpatient (CLI) | payer OTHER, MEDICAID, SELFPAY ==
[2018-07-02 11:30] LABS: HCT 32.3 % (36.0-46.0); HGB 10.4 g/dL (12.0-15.5); Mean Corp. HGB Concentration 32.2 g/dL (32.0-36.0); Mean Corpuscular Hemoglobin 26.8 pg (27.0-33.0); Mean Corpuscular Volume 83.2 fL (80-95); Platelet Count 187 x1000/uL (130-400); RBC 3.88 m/cumm (4.00-5.20); RBC Distribution Width 13.7 % (11.7-14.6); White Blood Cell Count 8.52 k/cumm (4.4-10.8)
== END 2018-07-02 11:10 | disposition home or self-care (01) ==
LOC: BCD 10:24
PROVIDERS: PCP Specialist/Technologist Athletic Trainer; Visit Provider Advanced Practice Midwife
DX: O13.3 Gestational [pregnancy-induced] hypertension without significant proteinuria, third trimester (principal); Z3A.39 39 weeks gestation of pregnancy
CPT/HCPCS: 36415; 85027; 59025

== ENCOUNTER 2018-07-10 16:19 | Outpatient (REF) | payer OTHER, MEDICAID, SELFPAY ==
[2018-07-10 18:32] LABS: PROTEIN 14.8 mg/dL
[2018-07-10 20:18] LABS: COMMENT (LAB VIEW ONLY) 88.26 mg/dL; Prot/Crea Ur Ratio 0.16
== END 2018-07-10 16:39 ==
LOC: LBN 16:19
PROVIDERS: PCP Specialist/Technologist Athletic Trainer; Visit Provider Advanced Practice Midwife
DX: Z34.93 Encounter for supervision of normal pregnancy, unspecified, third trimester (principal)
CPT/HCPCS: 82565; 84156

== ENCOUNTER 2018-07-12 09:19 | Inpatient (IN) | payer OTHER, MEDICAID, SELFPAY ==
[2018-07-12 11:25] LABS: HCT 33.8 % (36.0-46.0); HGB 10.8 g/dL (12.0-15.5); Mean Corpuscular Hemoglobin 26.7 pg (27.0-33.0); Mean Corpuscular Volume 83.5 fL (80-95); Mean Platelet Volume 9.9 fL (8.0-11.0); Platelet Count 201 x1000/uL (130-400); RBC 4.05 m/cumm (4.00-5.20); RBC Distribution Width 14.2 % (11.7-14.6)
[2018-07-12 11:36] LABS: ALT 12 U/L (12-78); AST 14 U/L (15-37); Albumin 2.4 g/dL (3.4-5.0); Alkaline Phosphatase 200 U/L (46-116); Bilirubin, Total 0.2 mg/dL (0.2-1.0); CREATININE 0.64 mg/dL (0.55-1.02); Total Protein 6.4 g/dL (6.4-8.2); Uric Acid 3.8 mg/dL (2.6-6.0)
[2018-07-12 11:37] LABS: Bilirubin, Direct < 0.05 mg/dL (0.00-0.20)
[2018-07-12] MEDS: miSOPROStol 25 MCG TAB 50 MCG PO (13:38)
[2018-07-12] MEDS: Normal Saline Flush 10 ML SYR IVP (13:39)
[2018-07-12] MEDS: Acetaminophen 325 MG TAB 650 MG PO (21:24)
[2018-07-12] MEDS: Hamamelis Leaf/Glycerin 100 EACH BOX PR (21:25)
[2018-07-13] MEDS: Acetaminophen 325 MG TAB 650 MG PO ×2 (04:54→14:32)
[2018-07-13] MEDS: Ibuprofen 600 MG TAB PO (22:39)
== END 2018-07-14 11:10 | disposition home or self-care (01) | DRG 807 ==
PROVIDERS: Admitting Provider Advanced Practice Midwife; PCP Specialist/Technologist Athletic Trainer; Visit Provider Advanced Practice Midwife
DX: O48.0 Post-term pregnancy (principal); Z37.0 Single live birth; Z3A.40 40 weeks gestation of pregnancy; O75.89 Other specified complications of labor and delivery; O99.02 Anemia complicating childbirth; G43.909 Migraine, unspecified, not intractable, without status migrainosus; D64.9 Anemia, unspecified; Z30.013 Encounter for initial prescription of injectable contraceptive
CPT/HCPCS: 36415; 80076; 85027; 86850; 86900; 86901; 59200; 82565; 84550; J1050; J3490

== ENCOUNTER 2018-10-20 12:48 | Outpatient (REF) | payer MEDICAID, SELFPAY ==
[2018-10-20 19:45] LABS: Abs Immature Grans 0.01 k/cumm (0.0-0.09); Absolute Basophil Count 0.03 k/cumm (0.0-0.2); Absolute Eosinophil Count 0.04 k/cumm (0.0-0.7); Absolute Lymphocyte Count 2.72 k/cumm (1.2-3.4); Absolute Neutrophil Count 3.96 k/cumm (1.2-6.7); Basophils % 0.4; Eosinophils % 0.6; HCT 42.4 % (36.0-46.0); HGB 14.1 g/dL (12.0-15.5); Immature Grans % 0.1; Lymphocytes % 37.5; Mean Corp. HGB Concentration 33.3 g/dL (32.0-36.0); Mean Corpuscular Hemoglobin 28.3 pg (27.0-33.0); Mean Platelet Volume 9.6 fL (8.0-11.0); Monocytes % 6.9; Neutrophils % 54.5; Platelet Count 284 x1000/uL (130-400); RBC 4.99 m/cumm (4.00-5.20); RBC Distribution Width 13.1 % (11.7-14.6); White Blood Cell Count 7.26 k/cumm (4.4-10.8)
[2018-10-20 20:43] LABS: Anion Gap 14.1 mmol/L (3-11); BUN 12 mg/dL (7-18); CO2 23.9 mmol/L (21.0-32.0); CREATININE 0.73 mg/dL (0.55-1.02); Calcium 9.6 mg/dL (8.5-10.1); Chloride 104 mmol/L (98-107); Glucose 111 mg/dL (70-100); Potassium 3.7 mmol/L (3.5-5.1); Sodium 142 mmol/L (136-145); TSH (W/Ref FT4) 1.81 uIU/mL (0.358-3.74)
== END 2018-10-20 13:08 ==
LOC: NCHCN 12:48
PROVIDERS: PCP Specialist/Technologist Athletic Trainer; Visit Provider Specialist/Technologist Athletic Trainer
DX: R50.9 Fever, unspecified (principal); R63.5 Abnormal weight gain
CPT/HCPCS: 80048; 84443; 85025

== ENCOUNTER 2018-11-29 07:23 | Emergency (ER) | payer MEDICAID, SELFPAY ==
[2018-11-29 07:33] VITALS: BP 135/92; PULSE 98; RESP 18; TEMP 36.9; O2SAT 98
--- NOTE | 2018-11-29 07:40 | ED.GENADUL_ITS ---
Discharge Plan Disposition Patient Disposition: HOME Condition: Good Discharge Details Chief Complaint: DentalOral Clinical Impression: Pain in lower jaw Primary Care Provider: Bryant Wu ED Provider: Delroy Cooney Home Meds and New Rx's Prescriptions: Continued medroxyprogesterone [Depo-Provera] 150 mg/mL suspension 150 mg IM Q12W Qty: 1 RF: 3 epinephrine [EpiPen 2-Morgan] 0.3 MG/0.3 ML auto-injector 0.3 mg IM ONCE Qty: 1 RF: 1 cetirizine [Zyrtec] 10 MG tablet,chewable 10 mg PO PRN PRNQty: 30 RF: 0 albuterol sulfate [ProAir HFA] 8.5 GM HFA aerosol inhaler 2 puff Inhalation Q4H PRN Qty: 1 RF: 1 Discharge Instructions Additional Instructions: Use ibuprofen or acetaminophen as needed for pain. Follow-up with your dentist today. Return to ED for inability to swallow, difficulty breathing, facial erythema or swelling. Medical Decision Making Patient wanted to make sure she does not have strep. She has already placed a call to her dentist. She has taken Tylenol but no Motrin. If her strep is negative, she wishes to follow-up with her dentist before starting antibiotics. Rapid strep is negative. Throat culture sent. Patient given ibuprofen. She will follow-up with her dentist. Return to ED for inability to swallow, difficulty breathing, facial swelling or redness. HPI General Mode of arrival: ambulatory . Date/Time Provider Initiated Documentation: 11/29/18 07:33 . Limitations to Documentation: no limitations . Information obtained by: patient . HPI Narrative: Patient presents to ED with complaint of left jaw pain and sore throat. She denies any fever that she is aware of. She denies cough or congestion. Symptoms started yesterday and has got worse throughout the night. She thinks it probably is related to her impacted wisdom teeth but wanted to make sure she did not have strep before contacting her dentist. She has difficulty swallowing because of the discomfort and pain. She has no facial pain or swelling. She has no difficulty breathing. Related Data Home Medications Medication Instructions Recorded Confirmed epinephrine [EpiPen 2-Morgan] 0.3 mg IM ONCE #1 pack 11/26/13 10/06/18 cetirizine [Zyrtec] 10 mg PO PRN PRN #30 tab-cap 09/10/14 10/06/18 albuterol sulfate [ProAir HFA] 2 puff INHALATION Q4H PRN #1 12/16/14 10/06/18 inhaler medroxyprogesterone 150 mg/mL 150 mg IM Q12W #1 ml 10/06/18 10/06/18 intramuscular suspension Previous Rx's Medication Instructions Recorded medroxyprogesterone 150 mg/mL 150 mg IM Q12W #1 ml 10/06/18 intramuscular suspension Allergies Allergy/AdvReac Type Severity Reaction Status Date / Time Sulfa (Sulfonamide Allergy Mild RASH Verified 11/29/18 07:35 Antibiotics) shellfish derived Allergy hives Verified 11/29/18 07:35 General Stated Complaint: DentalOral JOLYNN: 4 Review of Systems Constitutional Denies chills and Denies fever(s) ENT Reports dental pain, Denies nasal congestion, Denies nasal discharge and Reports sore throat Cardiovascular Denies dyspnea Respiratory Denies dyspnea [facility] Medical History Amblyopia (Resolved) left eye 05/06 Closed fracture of elbow (Resolved) right-07/06 Closed fracture of lower end of radius and ulna (Resolved) right-05/15 Contraception (Resolved) Depo Provera Q3mo since 2012. Pt will begin OCPs 11/2015. Exercise-induced asthma (Acute 12/16/14) Family history of factor V Leiden mutation (Resolved) 08/2015 pt is neg for mutation. 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 Date GA/Weeks # Outcome Route Wgt Sex Labor Lgth Anesthes ia Location Prov Complic 07/12/18 40 No Successful vaginal 3.912 kg Male 2 hrs. 30 min. Betsy Navarro CNM Exam Narrative Exam Narrative: Vitals: Afebrile. Elevated heart rate and blood pressure likely related to discomfort. Saturations normal. Const: WDWN female in NAD. HEENT: NC/AT. Normal facial exam without swelling/erythema. TMs clear bilaterally. OP with mildly enlarged left tonsil. Some erythema of the throat. No gingival redness or abscess. Significant pain and tenderness left lower wisdom tooth. Eyes: Normal conjunctiva and sclera. Neck: Supple. Trachea midline. Lungs: Normal respiratory effort. Neuro: A+O x 3. CN grossly in tact. Good strength and no focal deficit. Course Vital Signs Temperature 98.4 F 11/29/18 07:33 Pulse 98 H 11/29/18 07:33 Respiratory Rate 18 11/29/18 07:33 Blood Pressure 135/92 H 11/29/18 07:33 Pulse Oximetry 98 11/29/18 07:33 Temperature 98.4 F 11/29/18 07:33 Temperature Source Temporal Artery Scan 11/29/18 07:33 Pulse 98 H 11/29/18 07:33 Respiratory Rate 18 11/29/18 07:33 Respiratory Effort Non-Labored 11/29/18 07:36 Blood Pressure 135/92 H 11/29/18 07:33 Pulse Oximetry 98 11/29/18 07:33 Oxygen Delivery Method Room Air 11/29/18 07:33 Oxygen Flow Rate 0 11/29/18 07:33 Pain Level 8 11/29/18 07:36
[2018-11-29] MEDS: Ibuprofen 600 MG TAB PO (07:57)
== END 2018-11-29 08:05 | disposition home or self-care (01) ==
PROVIDERS: Emergency Provider Emergency Medicine; PCP Specialist/Technologist Athletic Trainer
DX: R68.84 Jaw pain (principal); J02.9 Acute pharyngitis, unspecified
CPT/HCPCS: 87880; 99283; 87081

== ENCOUNTER 2019-01-05 12:16 | Outpatient (REF) | payer MEDICAID, SELFPAY ==
--- NOTE | 2019-01-05 15:30 | PAPFT_PTH ---
PATIENT: Sarah De León LOC: [facility] U#:[id number] AGE/SX: 23/F ROOM: RE01/05/[address]: ROSALIA [place] : 1995 BED: DIS: 01/05/2019 SPEC #: [id number] RECD: 01/08/19 12:46 STATUS: ADDIS REQ #: [id number] MICKEY: 01/05/19 15:[address]: Brooke Jeong DEPT: [facility] Cytology RECD BY: Gladys Sullivan ENTERED: 01/08/19 12:47 SP TYPE: PAPFT OTHR DR: Bryant Wu Tissues: 1 - CX/ENDOCX FOR PAP SMEARS Procedures: PAP THIN PREP/[facility] Screening Comments: [id number]
== END 2019-01-05 12:36 ==
LOC: LBN 12:16
PROVIDERS: PCP Specialist/Technologist Athletic Trainer; Visit Provider Nurse Practitioner Family
DX: Z12.4 Encounter for screening for malignant neoplasm of cervix (principal)
CPT/HCPCS: 88142

== ENCOUNTER 2019-01-26 13:22 | Outpatient (REF) | payer MEDICAID, SELFPAY | END 2019-01-26 13:42 | LOC: NCHCN 13:22 | PROVIDERS: PCP Specialist/Technologist Athletic Trainer; Visit Provider Physician Assistant Medical | DX: R30.0 Dysuria (principal) | CPT/HCPCS: 87086 ==

== ENCOUNTER 2019-02-07 02:46 | Outpatient (CLI) | payer MEDICAID, SELFPAY ==
--- NOTE | 2019-02-07 08:24 | PFT_ITS ---
FEBRUARY 07, 2019 REQUESTING PROVIDER: Raiza Cruz SPIROMETRY: Shows no evidence of obstructive airways disease. No bronchodilator testing was carried out. LUNG VOLUME: Shows no evidence of restriction. DIFFUSION CAPACITY: Elevated. AIRWAYS RESISTANCE: Normal. IMPRESSION: Isolated, elevated diffusion capacity. This constellation of findings can be seen in asthma. If the diagnosis of asthma is in question then proceeding the Methacholine challenge testing may prove to be useful. METHACHOLINE CHALLENGE TESTING: Good patient effort after normal spirometry. Methacholine challenge testing was carried out up to a methacholine concentration of 16 mg/ml at which point the patient had a 26% drop in FEV1. IMPRESSION: Positive Methacholine challenge test. Clinical correlation is recommended.
[2019-02-07] MEDS: Methacholine 100 MG VIAL IH (16:49)
[2019-02-07] MEDS: Inhaler, Assist Device 1 EACH MC (16:49)
[2019-02-07] MEDS: Albuterol HFA 18 GM 200 PUFF INH IH (16:50)
== END 2019-02-07 03:06 ==
PROVIDERS: PCP Specialist/Technologist Athletic Trainer; Visit Provider Nurse Practitioner Family
DX: J45.990 Exercise induced bronchospasm (principal)
CPT/HCPCS: 94060; 94150; 94726; 94729; 95070; 94010; J7674

== ENCOUNTER 2019-02-13 16:22 | Outpatient (REF) | payer MEDICAID, SELFPAY | END 2019-02-13 16:42 | LOC: NCHCN 16:22 | PROVIDERS: PCP Specialist/Technologist Athletic Trainer; Visit Provider Nurse Practitioner Family | DX: J02.9 Acute pharyngitis, unspecified (principal) | CPT/HCPCS: 87070 ==

== ENCOUNTER 2019-07-12 20:43 | Outpatient (REF) | payer OTHER, SELFPAY ==
[2019-07-16 11:25] LABS: COVID-19 RT-PCR Result Undetected (NotDetected)
== END 2019-07-12 21:03 ==
LOC: NCHCN 20:43
PROVIDERS: PCP Specialist/Technologist Athletic Trainer; Visit Provider Nurse Practitioner Family
DX: R05 Cough (principal); R50.9 Fever, unspecified
CPT/HCPCS: U0003

== ENCOUNTER 2019-12-14 03:52 | Outpatient (REF) | payer OTHER, SELFPAY ==
[2019-12-21 17:34] LABS: Patient Race White; SARS-CoV-2 RNA Undetected (Undetected); SARS-CoV-2 Specimen Source Nasal
== END 2019-12-14 04:12 ==
LOC: LBO 03:52
PROVIDERS: PCP Specialist/Technologist Athletic Trainer; Visit Provider Nurse Practitioner Family
DX: Z11.59 Encounter for screening for other viral diseases (principal)
CPT/HCPCS: U0003

== ENCOUNTER 2019-12-19 01:58 | Outpatient (CLI) | payer OTHER, SELFPAY ==
--- NOTE | 2019-12-19 | DI.US_ITS ---
EXAM: US SOFT TISSUE HEAD OR NECK CLINICAL HISTORY: LT PARACERVICAL FULLNESS, LT NECK LUMP,R22.1 TECHNIQUE: Ultrasound performed using standard protocol. COMPARISON: US US renal from 04/07/2018 FINDINGS: Soft tissue ultrasound was performed to evaluate a left posterior cervical palpable abnormality. The palpable abnormality corresponds to a 10 x 7 x 3 millimeter lymph node with normal lui morphology. No other significant findings. IMPRESSION: Palpable abnormality corresponds to a normal-appearing lymph node. DATA REPOSITORY:
== END 2019-12-19 02:18 ==
PROVIDERS: PCP Nurse Practitioner Family; Visit Provider Physician Assistant Medical
DX: R22.1 Localized swelling, mass and lump, neck (principal)
CPT/HCPCS: 76536

== ENCOUNTER 2020-01-16 15:06 | Outpatient (REF) | payer OTHER, SELFPAY ==
[2020-01-19 18:29] LABS: Patient Race White; SARS-CoV-2 RNA Undetected (Undetected); SARS-CoV-2 Specimen Source Nasopharynx
== END 2020-01-16 15:26 ==
LOC: NCHCN 15:06
PROVIDERS: PCP Nurse Practitioner Family; Visit Provider Physician Assistant Medical
DX: J06.9 Acute upper respiratory infection, unspecified (principal)
CPT/HCPCS: U0003

== ENCOUNTER 2020-04-16 08:59 | Emergency (ER) | payer OTHER, SELFPAY ==
[2020-04-16] VITALS (20 sets, daily range): BP systolic 115–137; BP diastolic 65–96; PULSE 84–118; RESP 14–25; TEMP 36.7–37; O2SAT 96–99
--- NOTE | 2020-04-16 09:00 | DI.CT_ITS ---
EXAM: CT CHEST PE CTA CLINICAL HISTORY: Chest pain, R/O PE. TECHNIQUE: Imaging Protocol: CT angiography of the chest was performed using pulmonary embolus quynh col. Multi planar reconstructions were performed. CONTRAST MATERIAL: Intravenous: Omnipaque 350 Contrast volume: 100 cc COMPARISON: CT CHEST FOR PULMONARY EMBOLUS from 09/15/2016 FINDINGS: CHEST: PULMONARY ARTERIES: There are no intraluminal filling defects to suggest acute pulmonary emboli. LUNGS: There are no infiltrates nor evidence of pulmonary infarction.. There are no pleural effusions . MEDIASTINUM: There is no hilar nor mediastinal adenopathy. Visualized thyroid unremarkable. CARDIAC: Heart size is normal. There is no pericardial effusion.Caliber of the thoracic aorta is wit hin normal limits. There is no evidence of shift of the interventricular septum. PARTIALLY VISUALIZED UPPERMOST ABDOMEN: No obvious findings OSSEOUS: No significant osseous lesions.. IMPRESSION: 1. No evidence of acute pulmonary emboli. No evidence of pulmonary infarction.No pleural effusions. 2. No pulmonary infiltrates. No intrathoracic adenopathy. 3. No significant osseous findings. RADIATION DOSE DELIVERED: LINK-TO-SR Total DLP DATA REPOSITORY: All CT scans at this facility are submitted to the National Radiology Data Registry (NRDR) Dose Index Registry (DIR) with the [employer] (ACR). RADIATION OPTIMIZATION: All CT scans at this facility use at least one of these dose optimization te chniques: automated exposure control; mA and/or kV adjustment per patient size (includes targeted exa ms where dose is matched to clinical indication); or iterative reconstruction.
--- NOTE | 2020-04-16 09:00 | RT.EKG_ITS ---
APPROVED REPORT Exam: Resting ECG Patient Location: E HR:108 bpm ECG Measurements Heart Rate 108 AXIS NC 94 P 51 QRSd 67 QRS 64 QT 321 T 28 QTc 429 Conclusion Sinus tachycardia Nonspecific T abnormalities, anterior leads - similar to 09/15/16
--- NOTE | 2020-04-16 09:14 | W.ED.GENAD ---
Discharge Plan Disposition Patient Disposition: HOME Condition: Stable Discharge Details Clinical Impression: Chest pain Primary Care Provider: Raiza Cruz ED Provider: Stephanie Burgess Home Meds and New Rx's Prescriptions: Continued levalbuterol HCl [Xopenex] 0.63 mg/3 mL solution for nebulization 0.63 mg IH ONCE RF: 0 epinephrine [EpiPen 2-Morgan] 0.3 MG/0.3 ML auto-injector 0.3 mg IM ONCE Qty: 1 RF: 1 cetirizine [Zyrtec] 10 MG tablet,chewable 10 mg PO PRN PRNQty: 30 RF: 0 albuterol sulfate [ProAir HFA] 8.5 GM HFA aerosol inhaler 2 puff Inhalation Q4H PRN Qty: 1 RF: 1 medroxyprogesterone [Depo-Provera] 150 mg/mL suspension 150 mg IM Q12W Qty: 1 RF: 3 Discharge Instructions Instructions: Chest Pain (ED) Additional Instructions: Follow up with primary care provider in 3-5 days. Return to ED sooner if any worsening or concerns. Increase oral fluids. Please take Tylenol or Ibuprofen with food every 4-6 hours as needed for pain and swelling. Stand Alone Forms: Work Release Referrals: Raiza Cruz [Primary Care Provider] - Medical Decision Making 24-year-old female presents to the ED with chief complaint of midsternal chest pain. She states that she woke up at 7 AM from the chest pain associated with shortness of breath and nausea. Reports having a headache all night. 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 She is on the Depo-Provera control, denies any abdominal pain, vomiting or diarrhea. She denies any recent trauma to the chest. On initial exam she is slightly tachycardic, alert and oriented x3. Chest pain is nonreproducible with palpation. Lung sounds are clear to auscultation bilaterally. At this time work-up ordered including CBC, CMP, magnesium, serial troponins. EKG. CT chest rule out PE. There is an allergy to shellfish patient states that her reaction is stomach cramping and hives. She does report that she has had CT with IV contrast without reaction in the past. We will be cautious and give Benadryl IV prior to patient receiving CT dye. EKG was reviewed by Dr. James Barksdale MD ER attending, please see his official report and read. Differential diagnosis includes costochondritis, PE, respiratory illness, less likely coronary artery disease, 1028: Spoke with Radiologist Dr. Leblanc, negative for PE, infiltrate or other abnormalities. 1033: Patient re-evaluation, states still having a little bit of pain in my back, Toradol ordered, discussed plan of care, verbalized understanding. At this time suspicion for coronary artery disease is very low due to lack of risk factors. We will see if the Toradol makes a difference in her discomfort. If not we will get the repeat troponin at approximately noon. 1111: Patient states that she feels much better. At this time due to patient's low risk factors for coronary artery disease I will forego the second troponin. Patient's work-up is largely unremarkable at this time. Discussed home care with patient who verbalized understanding. Discussed strict return instructions. This text was generated using [employer] system, please disregard any oddities of phrase or misspellings. HPI General Mode of arrival: ambulatory. Date/Time Provider Initiated Documentation: 04/16/20 08:59. Limitations to Documentation: no limitations. Information obtained by: patient. HPI Narrative: 24-year-old female presents to the ED with chief complaint of midsternal chest pain. She states that she woke up at 7 AM from the chest pain associated with shortness of breath and nausea. Reports having a headache all night. 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 She is on the Depo-Provera control, denies any abdominal pain, vomiting or diarrhea. She denies any recent trauma to the chest. On initial exam she is slightly tachycardic, alert and oriented x3. Chest pain is nonreproducible with palpation. Lung sounds are clear to auscultation bilaterally. Related Data Home Medications Medication Instructions Recorded Confirmed epinephrine [EpiPen 2-Morgan] 0.3 mg IM ONCE #1 pack 11/26/13 04/16/20 cetirizine [Zyrtec] 10 mg PO PRN PRN #30 tab-cap 09/10/14 04/16/20 albuterol sulfate [ProAir HFA] 2 puff INHALATION Q4H PRN #1 12/16/14 04/16/20 inhaler levalbuterol HCl 0.63 mg/3 mL 0.63 mg IH ONCE 03/30/19 04/16/20 solution for nebulization medroxyprogesterone 150 mg/mL 150 mg IM Q12W #1 ml 12/05/19 04/16/20 intramuscular suspension Previous Rx's Medication Instructions Recorded medroxyprogesterone 150 mg/mL 150 mg IM Q12W #1 ml 12/05/19 intramuscular suspension Allergies Allergy/AdvReac Type Severity Reaction Status Date / Time Sulfa (Sulfonamide Allergy Mild RASH Verified 04/16/20 09:09 Antibiotics) shellfish derived Allergy hives Verified 04/16/20 09:09 General Stated Complaint: Chest Pain JOLYNN: 2 Review of Systems Narrative: Constitutional: Negative for weight loss, alert and oriented, well groomed, normal body habitus, appears comfortable. HEENT: Denies trauma, headaches, blurry vision, nasal discharge, sore throat, trouble swallowing. Chest: Denies palpitations, irregular rhythm, hypertension. Positive midsternal chest pain radiating into her back. Respiratory: Denies cough, hemoptysis. Positive mild shortness of breath with chest pain. GI: Denies abdominal pain, vomiting, diarrhea, constipation. Positive nausea : Denies dysuria, hematuria, flank pain, rectal bleeding. Neuro: Denies dizziness, blurry vision, weakness, syncope, headache or facial numbness. Hematologic: Denies easy bruising, intolerance to heat or cold, hair loss. [facility] Medical History (Updated 04/16/20 @ 11:09 by Stephanie Burgess) Amblyopia left eye 05/06 Closed fracture of elbow right-07/06 Closed fracture of lower end of radius and ulna right-05/15 Contraception Depo Provera Q3mo since 2012. Pt will begin OCPs 11/2015. Exercise-induced asthma (12/16/14) Family history of factor V Leiden mutation 08/2015 pt is neg for mutation. 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[employer], 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 [employer] Seatbelt use: always Helmet use: Yes 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 Date GA/Weeks # Outcome Route Wgt Sex Labor Lgth Anesthesia Location Prov Complic 07/12/18 40 No Successful vaginal 3912.234 g Male 2 hrs. 30 min. Betsy Navarro CNM Exam Narrative Exam Narrative: Constitutional: Alert and oriented x3. Appears stated age. Normal body habitus. Head: Normocephalic, no trauma. Eyes: Pupils PERRLA, Red reflex noted, EOM's intact. Eyelids symmetrical without lesions, discharge, or swelling. ENT: Bilateral TM's WNL, External ear normal to inspection, no mastoid TTP, swelling, or erythema, Nasal turbinates WNL, no nasal discharge. Normal dentition, Posterior pharynx WNL, no exudate. Chest: Slightly tachycardic at 118, normal S1, S2, distal pulses intact. No rubs murmurs or gallops auscultated. Resp: Lungs clear to auscultation bilaterally, no wheezes, rales, or rhonchi. Musculoskeletal: Normal gait, 5/5 strength to all four extremities. Skin: No suspicious rashes or lesions. Capillary refill less than 2 sec. Neurologic: Cranial nerves II-XII intact. Alert and oriented x 3. DTR's intact. Hematologic/Lymphatic: No ecchymosis, no lymphadenopathy. Course Vital Signs Vital signs: Vital Signs Temperature 37 C 04/16/20 09:00 Pulse 118 H 04/16/20 09:00 Respiratory Rate 20 04/16/20 09:00 Blood Pressure 137/96 H 04/16/20 09:00 Pulse Oximetry 97 04/16/20 09:00 Temperature 37 C 04/16/20 09:00 Temperature Source Skin 04/16/20 09:00 Pulse 118 H 04/16/20 09:00 Respiratory Rate 20 04/16/20 09:00 Respiratory Effort 04/16/20 09:10 Blood Pressure 137/96 H 04/16/20 09:00 Pulse Oximetry 97 04/16/20 09:00 Oxygen Delivery Method Room Air 04/16/20 09:00 Oxygen Flow Rate 0 04/16/20 09:00 Pain Level 4 04/16/20 09:00 Comment 04/16/20 09:00
[2020-04-16] MEDS: diphenhydrAMINE 50 MG/ML VIAL 25 MG IVP (09:23)
--- NOTE | 2020-04-16 09:37 | NUR.NOTE ---
Nursing Note:hearing health technician informed that patient has not yet had ordered test. hearing health technician informed patient that day is very focused and only goes to level of the base of the lungs. hearing health technician asked patient if she was concerned of , patient stated she was not. Patient taken for CTA, DOMINGO Brown notified.
[2020-04-16 09:40] LABS: Abs Immature Grans 0.02 10^3/uL (0.0-0.06); Absolute Basophil Count 0.05 10^3/uL (0.0-0.2); Absolute Eosinophil Count 0.06 10^3/uL (0.0-0.7); Absolute Monocyte Count 0.33 10^3/uL (0.1-0.8); Absolute Neutrophil Count 3.72 10^3/uL (1.2-6.7); Basophils % 0.7; Eosinophils % 0.9; HCT 47.1 % (36.0-46.0); HGB 15.8 g/dL (11.2-15.7); Immature Grans % 0.3; Lymphocytes % 40.1; MCH 29.1 pg (27.0-33.0); MCHC 33.5 % (32.0-36.0); MCV 86.7 fL (80-95); Monocytes % 4.7; Neutrophils % 53.3; Nucleated RBC 0 %; Platelet Count 286 10^3/uL (130-400); RBC 5.43 10^6/uL (3.93-5.22); RDW 11.6 % (11.7-14.6); RDW-SD 37.1 fL; WBC 6.98 10^3/uL (4.4-10.8)
[2020-04-16] MEDS: Omnipaque 350 MG/ML 100 ML BTL IJ (09:50)
[2020-04-16] MEDS: Normal Saline - Diluent 50 ML VIAL IV (09:51)
[2020-04-16 09:58] LABS: ALT 24 U/L (14-59); AST 15 U/L (15-37); Albumin 4.2 g/dL (3.4-5.0); Alkaline Phosphatase 108 U/L (46-116); Anion Gap 10.7 mmol/L (3-11); BUN 9 mg/dL (7-18); Bilirubin, Total 0.4 mg/dL (0.2-1.0); CO2 25.3 mmol/L (21.0-32.0); CREATININE 0.96 mg/dL (0.55-1.02); Chloride 104 mmol/L (98-107); Glucose 97 mg/dL (74-106); Potassium 3.6 mmol/L (3.5-5.1); Sodium 140 mmol/L (136-145); Total Protein 8.1 g/dL (6.4-8.2)
[2020-04-16 10:00] LABS: Troponin I < 0.05 ng/mL (<0.06)
[2020-04-16] MEDS: Normal Saline 1,000 ML 125 ML IV (10:05)
[2020-04-16] MEDS: Ketorolac 15 MG/ML VIAL IVP (10:45)
== END 2020-04-16 11:30 | disposition home or self-care (01) ==
PROVIDERS: Emergency Provider Registered Nurse Emergency; PCP Nurse Practitioner Family
DX: R07.89 Other chest pain (principal); R07.2 Precordial pain
CPT/HCPCS: 36415; 71275; 80053; 81025; 93005; 96361; 96374; 96375; 99285; 83735; 84484; 85025; 93010; 99284; J1200; J1885; J3490

== ENCOUNTER 2020-08-29 15:07 | Outpatient (REF) | payer SELFPAY ==
--- NOTE | 2020-08-29 15:22 | NUR.NOTE ---
Nursing Note: Pt to ED to be swabbed for covid for employee testing. Order already in place by Julio Cassidy from [facility]. VESSEL SPECIALIST swab collected and brought to lab. Pt did not want a medical exam.
[2020-08-29 15:29] LABS: Source Nasal/Nares
[2020-08-29 16:31] LABS: COVID-19 PCR Negative (Negative)
== END 2020-08-29 15:23 ==
LOC: ER 15:07
PROVIDERS: Nurse Practitioner Family; PCP Nurse Practitioner Family
DX: Z20.822 Contact with and (suspected) exposure to COVID-19 (principal); Z03.818 Encounter for observation for suspected exposure to other biological agents ruled out
CPT/HCPCS: 87635; 99281; U0003

== ENCOUNTER 2020-09-26 07:51 | Emergency (ER) | payer OTHER, SELFPAY ==
[2020-09-26 07:55] VITALS: BP 116/59; PULSE 102; RESP 18; TEMP 36.6; O2SAT 98
--- NOTE | 2020-09-26 08:01 | ED.GENADUL_ITS ---
Discharge Plan Disposition Patient Disposition: HOME Condition: Stable Discharge Details Clinical Impression: Back pain Primary Care Provider: Raiza Cruz ED Provider: Dong Deng Home Meds and New Rx's Prescriptions: New naproxen [Naprosyn] 500 mg tablet 500 mg PO BID PRNQty: 20 RF: 0 lidocaine [Lidoderm] 5 % adhesive patch,medicated 1 patch topical DAILY Qty: 1 RF: 0 Continued medroxyprogesterone [Depo-Provera] 150 mg/mL suspension 150 mg IM Q12W Qty: 1 RF: 3 levalbuterol HCl [Xopenex] 0.63 mg/3 mL solution for nebulization 0.63 mg IH ONCE PRNRF: 0 epinephrine [EpiPen 2-Morgan] 0.3 MG/0.3 ML auto-injector 0.3 mg IM ONCE Qty: 1 RF: 1 cetirizine [Zyrtec] 10 MG tablet,chewable 10 mg PO PRN PRNQty: 30 RF: 0 albuterol sulfate [ProAir HFA] 8.5 GM HFA aerosol inhaler 2 puff Inhalation Q4H PRN Qty: 1 RF: 1 acetaminophen [Acetaminophen Extra Strength] 500 mg Tablet 1,000 mg PO PRN PRNRF: 0 Discharge Instructions Instructions: Back Pain (ED) Additional Instructions: Lidoderm patches, Naprosyn as directed. Continue Tylenol as directed. Cool and/or warm compresses, gentle stretching as tolerated. Please watch for new or worsening symptoms and return to the ER for any concerns. I am giving you a referral to physical therapy, please contact me later today. I also recommend keeping your appointment with your primary care provider regarding your back pain, but please see if they can see you sooner. Stand Alone Forms: Physical Therapy Referral, Work Release Medical Decision Making 24-year-old female presenting with 3-week history of right lower back pain worse with movement. She denies any specific trauma but reports repetitive motion, lifting, turning, bending, twisting, etc. She has taken Tylenol with relief. She denies fever, history of IV drug use, abdominal pain, bowel or bladder incon tinence or retention, radiculopathy. Clinically she appears well, nontoxic. Examination is consistent with musculoskeletal pain, likely related to her right SI joint. Given there is no midline point tenderness, she is neurologically intact, there is no obvious trauma, emergent x-ray likely not indicated. Discussed options with patient. She is agreeable to IM Toradol, Lidoderm patch, I will provide a prescription for ongoing anti-inflammatory therapy as well as Lidoderm patches. I will give her a work note for this evening and provide her with a referral to physical therapy. Patient does have an appoint with her primary care provider and plans to follow-up, we did discuss that if conservative measures do not help her discomfort and more aggressive therapy and/or imaging may be required. Patient is comfortable with this plan and has no additional questions or concerns. Did obtain urinalysis to rule out , infection, etc. These diagnoses were of low suspicion. negative, no signs of UTI. What appears to be chronic hematuria. Examination not consistent with renal stone Medical Records Medical records reviewed: Yes I reviewed the patient's medical records. Lab Data Lab results reviewed: Yes I reviewed the patient's lab results. Labs: Laboratory Tests Range/Units 09/26/20 08:10 Urine Color (Yellow) Yellow Urine Clarity (Clear) Clear Urine pH (5-8) 6.0 Ur Specific [place] (1.005-1.025) >= 1.030 H Urine Protein (Negative) mg/dL Trace H Urine Ketones (Negative) mg/dL Negative Urine Blood (Negative) Trace-intact H Urine Nitrite (Negative) Negative Urine Bilirubin (Negative) Negative Urine Urobilinogen (Up TO 0.2) EU/dL 1.0 H Ur Leukocyte Esterase (Negative) Negative Urine RBC (0-2) HPF 3-5 H Urine WBC (0-5) HPF 0-2 Ur Epithelial Cells (Negative) HPF Few Urine Crystals (Negative) HPF Negative Urine Bacteria (Negative) HPF Few Urine Casts (Negative) LPF Negative Urine Mucus (Negative) Moderate Urine Other (Negative) Negative Ur Culture Indicated? No Urine Glucose (Negative) mg/dL Negative HPI General Mode of arrival: ambulatory . Date/Time Provider Initiated Documentation: 09/26/20 07:59 . Limitations to Documentation: no limitations . Information obtained by: patient . HPI Narrative: This is a 24-year-old female, past medical history of exercise-induced asthma, hematuria, migraines, presenting to the ER for 3-week history of right lower back pain. Patient states that approximately 3 weeks ago she was bending over, lifting, turning, twisting, repetitive motion, working on her camper for most of the day, denies specific injury, but that evening her back was sore and tight. Her back has been intermittently bothering her ever since although increasing in duration, and frequency. Reports that she has been occasionally taking Tylenol with little relief. She denies any fever, history of IV drug use, abdominal pain, nausea, vomiting, radiation of her pain down her legs, upper back, into her abdomen or groin. She denies any dysuria, hematuria, bowel or bladder incontinence or retention. Patient states that sitting, the pain is aching, tolerable but with certain movements it is sharp. 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 Related Data Home Medications Medication Instructions Recorded Confirmed epinephrine [EpiPen 2-Morgan] 0.3 mg IM ONCE #1 pack 11/26/13 09/26/20 cetirizine [Zyrtec] 10 mg PO PRN PRN #30 tab-cap 09/10/14 09/26/20 albuterol sulfate [ProAir HFA] 2 puff INHALATION Q4H PRN #1 12/16/14 09/26/20 inhaler levalbuterol HCl 0.63 mg/3 mL 0.63 mg IH ONCE PRN 03/30/19 09/26/20 solution for nebulization medroxyprogesterone 150 mg/mL 150 mg IM Q12W #1 ml 08/26/20 09/26/20 intramuscular suspension acetaminophen [Acetaminophen Extra 1,000 mg PO PRN PRN 09/26/20 09/26/20 Strength] lidocaine [Lidoderm] 1 patch TOPICAL DAILY #1 ea 09/26/20 naproxen [Naprosyn] 500 mg PO BID PRN #20 tab 09/26/20 Previous Rx's Medication Instructions Recorded medroxyprogesterone 150 mg/mL 150 mg IM Q12W #1 ml 08/26/20 intramuscular suspension lidocaine [Lidoderm] 1 patch TOPICAL DAILY #1 ea 09/26/20 naproxen [Naprosyn] 500 mg PO BID PRN #20 tab 09/26/20 Allergies Allergy/AdvReac Type Severity Reaction Status Date / Time Sulfa (Sulfonamide Allergy Mild RASH Verified 08/26/20 08:40 Antibiotics) shellfish derived Allergy hives Verified 08/26/20 08:40 General Stated Complaint: Nk/Back Pain JOLYNN: 4 Review of Systems Constitutional Constitutional: Denies fever(s) and Denies weakness Cardiovascular Cardiovascular: Denies chest pain and Denies dyspnea Respiratory Respiratory: Denies cough and Denies dyspnea Gastrointestinal Gastrointestinal: Denies abdominal pain, Denies nausea and Denies vomiting Genitourinary Genitourinary: Denies abnormal vaginal bleeding, Denies hematuria and Denies dysuria Musculoskeletal Musculoskeletal: Reports back pain, Denies numbness, Reports stiffness and Denies tingling Integumentary/Breasts Skin/Breast: Denies rash Neurologic Neurologic: Denies numbness, Denies tingling and Denies weakness [facility] Medical History Amblyopia left eye 05/06 Closed fracture of elbow right-07/06 Closed fracture of lower end of radius and ulna right-05/15 Contraception Depo Provera Q3mo since 2012. Pt will begin OCPs 11/2015. Exercise-induced asthma (12/16/14) Family history of factor V Leiden mutation 08/2015 pt is neg for mutation. 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) Renal colic on left side Family History Mother Factor V Leiden mutation with 2 blood clots, one following Mental disorder PTSD, anxiety Headache disorder Asthma Father Personal history of malignant neoplasm skin cancer-not melanoma Asthma Sister Diabetes Asthma Social History Smoking/Tobacco Use Status: Never Smoking risk assessment performed?: Yes Alcohol Intake: current Alcohol Intake frequency: holidays/special occasions only Drug use: Never Substance use type: does not use Adopted: No Household members: spouse, children and other Details: Manisha Nguyen 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[employer], 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 [employer] Seatbelt use: always Helmet use: Yes Drive intox or ride w/intox 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 Date GA/Weeks # Outcome Route Wgt Sex Labor Lgth Anesthes ia Location [facility] 07/12/18 40 No Successful vaginal 3912.234 g Male 2 hrs. 30 min. Betsy Navarro CNM Exam Const General: cooperative, healthy appearing, comfortable and no acute distress Orientation: alert and awake HENME Head: normal to inspection, normocephalic and atraumatic Eyes General: appearance normal, both eyes and all related structures Conjunctivae: conjunctivae normal Neck Neck: normal visual inspection, full ROM, no meningeal signs, trachea midline and supple Resp Effort & Inspection: normal respiratory effort and able to speak in complete sentences Auscultation: clear to auscultation bilaterally Cardio Rate: regular rate Rhythm: regular rhythm GI Palpation: soft and nontender Back/Spine/Pelvis Back: no CVA tenderness and back tenderness (Diffuse lumbar, worse right-sided) Thoracic/Lumbar Spine: straight leg raise negative bilaterally (Right leg 5 degrees, left side 15 degrees) and pain with thoraco-lumbar ROM Pelvis: no pain with anterior-posterior compression and no pain with lateral compression Sacroiliac joints: on the right tender to palpation Skin General skin exam: no rashes or lesions noted Neuro General: patient alert, patient awake, moves all extremities and no focal motor deficits Cognition: normal cognition Speech: speech normal Gait: antalgic (Slightly) Sensory Exam: no sensory deficits noted Extrem General: normal to inspection, full ROM and capillary refill normal Psych Appearance: grossly normal Mental Status: mental status grossly normal Course Vital Signs Vital signs: Vital Signs Temperature 36.6 C 09/26/20 07:55 Pulse 102 H 09/26/20 07:55 Respiratory Rate 18 09/26/20 07:55 Blood Pressure 116/59 L 09/26/20 07:55 Pulse Oximetry 98 09/26/20 07:55 Temperature 36.6 C 09/26/20 07:55 Temperature Source Temporal Artery Scan 09/26/20 07:55 Pulse 102 H 09/26/20 07:55 Respiratory Rate 18 09/26/20 07:55 Blood Pressure 116/59 L 09/26/20 07:55 Blood Pressure Position Sitting 09/26/20 07:55 Pulse Oximetry 98 09/26/20 07:55 Oxygen Delivery Method Room Air 09/26/20 07:55 Oxygen Flow Rate 0 09/26/20 07:55 Pain Level 8 09/26/20 07:55
[2020-09-26 08:25] LABS: Bilirubin Negative (Negative); Blood Trace-intact (Negative); Clarity Clear (Clear); Glucose Negative (Negative); Ketones Negative (Negative); Leukocyte Esterase Negative (Negative); Nitrite Negative (Negative); Specific Gravity >= 1.030 (1.005-1.025)
[2020-09-26] MEDS: Lidocaine 5% Patch 1 PATCH TP (08:51)
[2020-09-26] MEDS: Ketorolac 60 MG/2 ML VIAL IM (08:51)
[2020-09-26 08:59] LABS: Bacteria Few HPF (Negative); Crystals Negative HPF (Negative); Epithelial Cells Few HPF (Negative); Other Cells Negative (Negative); WBC 0-2 HPF (0-5)
[2020-09-26 09:00] LABS: C & S Indicated? No; Casts Negative LPF (Negative); Mucus Moderate (Negative)
== END 2020-09-26 09:19 | disposition home or self-care (01) ==
PROVIDERS: Emergency Provider Physician Assistant; PCP Nurse Practitioner Family
DX: M54.5 Low back pain (principal); X50.3XXA Overexertion from repetitive movements, initial encounter
CPT/HCPCS: 81025; 96372; 99284; 81003; 81015; 99283; J1885

== ENCOUNTER 2020-11-21 15:04 | Outpatient (REF) | payer OTHER, SELFPAY ==
--- NOTE | 2020-11-21 14:30 | PAPFT_PTH ---
PATIENT: Sarah De León LOC: [facility] U#:[id number] AGE/SX: 25/F ROOM: RE11/21/[address]: ROSALIA [place] : 1995 BED: DIS: 11/21/2020 SPEC #: [id number] RECD: 11/21/20 18:02 STATUS: ADDIS REUmm #: [id number] MICKEY: 11/21/20 14:[address]: Brooke Jeong DEPT: [facility] Cytology RECD BY: Gladys Sullivan ENTERED: 11/21/20 18:03 SP TYPE: PAPFT OTHR DR: Raiza Cruz Tissues: 1 - CX/ENDOCX FOR PAP SMEARS Procedures: PAP THIN PREP/UVM Screening Comments: [id number]
== END 2020-11-21 15:05 | disposition home or self-care (01) ==
LOC: LBN 15:04
PROVIDERS: PCP Nurse Practitioner Family; Visit Provider Nurse Practitioner Family
DX: Z12.4 Encounter for screening for malignant neoplasm of cervix (principal)
CPT/HCPCS: 88142

== ENCOUNTER 2021-03-04 17:43 | Outpatient (REF) | payer OTHER, SELFPAY | END 2021-03-04 17:44 | disposition home or self-care (01) | LOC: NCHCN 17:43 | PROVIDERS: PCP Nurse Practitioner Family; Visit Provider Family Medicine | DX: Z20.822 Contact with and (suspected) exposure to COVID-19 (principal); J02.9 Acute pharyngitis, unspecified | CPT/HCPCS: U0003 ==

== ENCOUNTER 2021-04-10 20:13 | Observation (INO) | payer OTHER, SELFPAY ==
[2021-04-10 20:15] VITALS: BP 124/71; PULSE 92; RESP 14; TEMP 36.2; O2SAT 98
--- NOTE | 2021-04-10 20:30 | RT.EKG_ITS ---
APPROVED REPORT Exam: Resting ECG Reason for Exam: shortness of breath, epigastric pain Patient Location: E HR:86 bpm ECG Measurements Heart Rate 86 AXIS IN 105 P 69 QRSd 71 QRS 71 QT 361 T 59 QTc 433 Conclusion Sinus rhythm...normal P axis, V-rate 60- 99 Physician: inverted t waves in V1-3, unchanged from prior ekg, no stemi
--- NOTE | 2021-04-10 20:34 | W.ED.GENAD ---
Discharge Plan Disposition Patient Disposition: [facility] Condition: Improving Discharge Details Clinical Impression: Flank pain, Complicated UTI (urinary tract infection) Admit Date/Time: 04/10/21 23:09 Admit Provider: Dong Subramanian Attending Provider: Dong Subramanian Primary Care Provider: Raiza Cruz ED Provider: Gladys Coleman Discharge Data Discharge Date/Time-TO BE ENTERED AT DEPARTURE: 04/11/21 00:07 Medical Decision Making Patient has a 9 mm stone in her renal pelvis, urinalysis that has 10-20 white blood cells, greater than 50 red blood cells, bacteria, positive leukocyte esterase, negative nitrate, concern is that patient has stranding around her right kidney with a 9 mm stone in her renal pelvis with evidence of a urinary tract infection CT results reviewed from virtual radiology where available No evidence of obstructive uropathy Discussed the case with Dr. Wilson who does request to call urology Patient is stable, she does not meet sepsis criteria I did order lactate after CT findings resulted Covid swab is pending at this time Urology was consulted, [place] [facility] [place] [facility]. Forbes at [facility], her recommendation was IV antibiotics and fluids IV ceftriaxone was administered, blood cultures pending, urinalysis culture pending, test negative Should patient decompensate in any way the recommendation was for stent placement Case was discussed with Dr. Subramanian who has accepted patient Lactate negative Patient agreeable to admission at this time HPI General Mode of arrival: ambulatory. Date/Time Provider Initiated Documentation: 04/10/21 20:17. Limitations to Documentation: no limitations. Information obtained by: patient. HPI Narrative: This 26-year-old female with history of back pain presents with report of right upper quadrant and right flank pain. She denies any known fever. Denies any chest pain but states she had some intermittent shortness of breath, she is unsure if the pain related. She denies known chance of . She denies any recent flights, surgeries, long drives. She did have colonoscopy prep a month and a half ago. She states this was uneventful. Denies any calf pain or swelling. She has a family history of factor V but states she was tested negative. She states the pain started in her back and radiates through to her flank. She denies pleuritic pain associated. She describes it as an aching sensation. States the pain is partially alleviated when she lays on her left side. Related Data Home Medications Medication Instructions Recorded Confirmed epinephrine [EpiPen 2-Morgan] 0.3 mg IM ONCE #1 pack 11/26/13 04/10/21 cetirizine [Zyrtec] 10 mg PO PRN PRN #30 tab-cap 09/10/14 04/10/21 albuterol sulfate [ProAir HFA] 2 puff INHALATION Q4H PRN #1 12/16/14 04/10/21 inhaler levalbuterol HCl 0.63 mg/3 mL 0.63 mg IH ONCE PRN 03/30/19 04/10/21 solution for nebulization medroxyprogesterone 150 mg/mL 150 mg IM Q12W #1 ml 08/26/20 04/10/21 intramuscular suspension acetaminophen [Acetaminophen Extra 1,000 mg PO PRN PRN 09/26/20 04/10/21 Strength] levofloxacin 750 mg PO DAILY #7 tab 04/11/21 oxycodone-acetaminophen [Percocet] 1 tab PO Q4H PRN #20 tab 04/11/21 prochlorperazine maleate 10 mg PO TID PRN #30 tab 04/11/21 [Compazine] Previous Rx's Medication Instructions Recorded medroxyprogesterone 150 mg/mL 150 mg IM Q12W #1 ml 08/26/20 intramuscular suspension levofloxacin 750 mg PO DAILY #7 tab 04/11/21 oxycodone-acetaminophen [Percocet] 1 tab PO Q4H PRN #20 tab 04/11/21 prochlorperazine maleate 10 mg PO TID PRN #30 tab 04/11/21 [Compazine] Allergies Allergy/AdvReac Type Severity Reaction Status Date / Time Sulfa (Sulfonamide Allergy Mild RASH Verified 04/10/21 20:22 Antibiotics) shellfish derived Allergy hives Verified 04/10/21 20:22 General Stated Complaint: Abd Prob JOLYNN: 3 Review of Systems All systems reviewed & are unremarkable except as noted in HPI and below PFSH All Active Problems (Updated 04/11/21 @ 17:16 by NASIM Vines) Nephrolithiasis (Acute) Complicated UTI (urinary tract infection) (Acute) Flank pain (Acute) Back pain (Acute) Migraine (Chronic) Precordial catch syndrome (Acute 05/29/14) Exercise-induced asthma (Acute 12/16/14) Medical History Amblyopia left eye 05/06 Closed fracture of elbow right-07/06 Closed fracture of lower end of radius and ulna right-05/15 Contraception Depo Provera Q3mo since 2012. Pt will begin OCPs 11/2015. Family history of factor V Leiden mutation 08/2015 pt is neg for mutation. Hematuria Herpes labialis 05/[address] 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[facility], 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 [facility] Seatbelt use: always Helmet use: Yes Drive intox or ride w/intox 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 Date GA/Weeks # Outcome Route Wgt Sex Labor Lgth Anesthesia Location Prov Complic 07/12/18 40 No Successful vaginal 3912.234 g Male 2 hrs. 30 min. Betsy Navarro,CNM Exam Const General: cooperative, comfortable and no acute distress Eyes Pupils: PERRL Resp Effort & Inspection: normal respiratory effort Auscultation: clear to auscultation bilaterally Cardio Rate: regular rate Rhythm: regular rhythm GI Other: Right upper quadrant tenderness, no right flank tenderness, no rebound or guarding Skin General skin exam: no rashes or lesions noted Neuro General: patient alert and patient oriented x3 Extrem Other: No calf swelling or tenderness Course Vital Signs Vital signs: Vital Signs Temperature 36.2 C L 04/10/21 20:15 Pulse 92 H 04/10/21 20:15 Respiratory Rate 14 04/10/21 20:15 Blood Pressure 124/71 04/10/21 20:15 Pulse Oximetry 98 04/10/21 20:15 Temperature 36.2 C L 04/10/21 20:15 Temperature Source Skin 04/10/21 20:15 Pulse 92 H 04/10/21 20:15 Respiratory Rate 14 04/10/21 20:15 Respiratory Effort 04/10/21 20:20 Blood Pressure 124/71 04/10/21 20:15 Pulse Oximetry 98 04/10/21 20:15 Oxygen Delivery Method Room Air 04/10/21 20:15 Oxygen Flow Rate 0 04/10/21 20:15 Pain Level 5 04/10/21 20:15
[2021-04-10 20:47] LABS: Abs Immature Grans 0.01 10^3/uL (0.0-0.06); Absolute Basophil Count 0.04 10^3/uL (0.0-0.2); Absolute Eosinophil Count 0.16 10^3/uL (0.0-0.7); Absolute Monocyte Count 0.81 10^3/uL (0.1-0.8); Absolute Neutrophil Count 4.14 10^3/uL (1.2-6.7); Basophils % 0.4; Eosinophils % 1.7; HCT 43.6 % (36.0-46.0); HGB 14.7 g/dL (11.2-15.7); Immature Grans % 0.1; Lymphocytes % 46.6; MCH 28.9 pg (27.0-33.0); MCHC 33.7 % (32.0-36.0); MCV 85.7 fL (80-95); MPV 8.5 fL (8.0-11.0); Monocytes % 8.4; Neutrophils % 42.8; Nucleated RBC 0 %; Platelet Count 257 10^3/uL (130-400); RBC 5.09 10^6/uL (3.93-5.22); RDW 11.5 % (11.7-14.6); WBC 9.66 10^3/uL (4.4-10.8)
[2021-04-10] MEDS: Ondansetron 4 MG/2 ML VIAL IVP (20:49)
[2021-04-10 21:03] LABS: ALT 30 U/L (14-59); AST 16 U/L (15-37); Albumin 4.1 g/dL (3.4-5.0); Alkaline Phosphatase 94 U/L (46-116); Anion Gap 8.5 mmol/L (3-11); BUN 9 mg/dL (7-18); Bilirubin, Total 0.3 mg/dL (0.2-1.0); CO2 29.5 mmol/L (21.0-32.0); CREATININE 0.8 mg/dL (0.55-1.02); Calcium 8.8 mg/dL (8.5-10.1); Chloride 103 mmol/L (98-107); Glucose 83 mg/dL (74-106); Lipase 112 U/L (73-393); Potassium 3.3 mmol/L (3.5-5.1); Sodium 141 mmol/L (136-145); Total Protein 7.7 g/dL (6.4-8.2)
[2021-04-10 21:26] LABS: Bilirubin Negative (Negative); Blood Large (Negative); Clarity Sl Cloudy (Clear); Glucose Negative (Negative); Ketones Negative (Negative); Leukocyte Esterase Negative (Negative); Nitrite Negative (Negative); Specific Gravity >= 1.030 (1.005-1.025); Urobilinogen 0.2 EU/dL (Up TO 0.2)
[2021-04-10 21:33] LABS: Bacteria Many HPF (Negative); C & S Indicated? Yes; Casts Negative LPF (Negative); Crystals Negative HPF (Negative); Epithelial Cells Few HPF (Negative); Mucus Negative (Negative); RBC >50 HPF (0-2)
--- NOTE | 2021-04-10 21:45 | DI.CT_ITS ---
Exam(s) CT ABDOMEN PELVIS W EXAM: CT ABDOMEN PELVIS W CLINICAL HISTORY: RUQ pain, right flank pain. TECHNIQUE: Imaging Protocol: Axial computed tomography images with coronal and sagittal reformatted images were created and reviewed CONTRAST MATERIAL: Intravenous: Omnipaque 350 Contrast volume:100 ml Oral: no COMPARISON: CT CHEST FOR PULMONARY EMBOLUS from 09/15/[address] CHEST PE CTA from 04/16/2020 FINDINGS: ABDOMEN: Lung Bases: Normal where visualized. Liver: Normal density. No measurable mass. Gallbladder and biliary tract: No radiodense calculus or dilation. Pancreas: Normal density, no abnormal calcifications or inflammatory process. Spleen: Normal. Kidneys: Normal size, contour and axis. 9 millimeter stone in the right renal pelvis causing mild dil atation of the renal pelvis. Mild amount of stranding is seen in the surrounding fat. There are no findings to suggest pyelonephritis. No perinephric collection. Left kidney appears normal. No mass es seen. Adrenal glands: No masses seen. Abdominal Aorta: Abdominal portion non-dilated. PELVIS: Bladder: No gross wall thickening. No calculi.No focal mass. Bowel: No obstruction or bowel wall thickening. Appendix normal. Peritoneal cavity: No ascites, collection or mesenteric inflammatory response. Bones: Within normal limits for age. Reproductive organs: Within normal limits. Lymph nodes: Unremarkable. Impression: 9 millimeter stone in the right renal pelvis causing mild dilatation. RADIATION DOSE DELIVERED: 854.6mGy.cm Total DLP DATA REPOSITORY: All CT scans at this facility are submitted to the National Radiology Data Registry (NRDR) Dose Index Registry (DIR) with the [employer] [place] [employer] (ACR). RADIATION OPTIMIZATION: All CT scans at this facility use at least one of these dose optimization te chniques: automated exposure control; mA and/or kV adjustment per patient size (includes targeted exa ms where dose is matched to clinical indication); or iterative reconstruction.
[2021-04-10 21:53] LABS: D-Dimer 445 ng/mlFEU (<500)
--- NOTE | 2021-04-10 21:57 | DI.RAD_ITS ---
Exam(s) XR CHEST 2V PA LATERAL EXAM: XR CHEST 2V PA LATERAL CLINICAL HISTORY: shortness of breath TECHNIQUE: 2D digital imaging was performed. COMPARISON: CR CHEST 2 VIEWS PA,LAT from 09/15/2016 FINDINGS: MEDIASTINUM: Normal. HEART: Normal. PULMONARY VASCULATURE: Normal. LUNGS: Clear. PLEURAL SPACE: No pleural effusion or pneumothorax. BONE:Unremarkable for age. IMPRESSION: No acute abnormality. DATA REPOSITORY: RADIATION DOSE DELIVERED:
--- NOTE | 2021-04-10 22:32 | DI.VRAD_ITS ---
PROCEDURE INFORMATION: Exam: XR Chest Exam date and time: 04/10/2021 10:23 PM Age: 25 years old Clinical indication: Other: Ruq pain, TECHNIQUE: Imaging protocol: XR of the chest. Views: 2 views. COMPARISON: CT CHEST PE CTA 04/16/2020 9:47 AM FINDINGS: Lungs: Unremarkable. No consolidation. Pleural spaces: Unremarkable. No pleural effusion. No pneumothorax. Heart/Mediastinum: Unremarkable. No cardiomegaly. Bones/joints: Unremarkable. IMPRESSION: No acute findings. Dictated and Authenticated by: Henrry Urbano MD. Ordering:SARA Graham MD
--- NOTE | 2021-04-10 22:36 | DI.VRAD_ITS ---
PROCEDURE INFORMATION: Exam: CT Abdomen And Pelvis With Contrast Exam date and time: 04/10/2021 9:54 PM Age: 25 years old Clinical indication: Other: Ruq pain, right flank pain TECHNIQUE: Imaging protocol: Computed tomography of the abdomen and pelvis with contrast. Contrast route: INTRAVENOUS (IV); COMPARISON: US ABDOMEN ULTRASOUND (P) 01/18/2017 4:31 PM FINDINGS: Liver: Normal. No mass. Gallbladder and bile ducts: Normal. No calcified stones. No ductal dilation. Pancreas: Normal. No ductal dilation. Spleen: Normal. No splenomegaly. Adrenal glands: Normal. No mass. Kidneys and ureters: 9 mm calculus in the right renal pelvis with trace stranding adjacent to the renal pelvis but without hydronephrosis. Stomach and bowel: Unremarkable. No obstruction. No mucosal thickening. Appendix: No evidence of appendicitis. Intraperitoneal space: Unremarkable. No free air. No significant fluid collection. Vasculature: Unremarkable. No abdominal aortic aneurysm. Lymph nodes: Unremarkable. No enlarged lymph nodes. Urinary bladder: Unremarkable as visualized. Reproductive: Unremarkable as visualized. Bones/joints: Unremarkable. No acute fracture. Soft tissues: Unremarkable. IMPRESSION: No acute finding. Dictated and Authenticated by: Henrry Urbano MD. Ordering:SARA Graham MD
[2021-04-10 23:20] LABS: Source Nasal/Nares
--- NOTE | 2021-04-10 23:29 | W.PM.HP.N ---
Date of service: 04/10/21 Time of Service: 23:29 Assessment and Plan Assessment and plan (1) Flank pain: Status: Acute Assessment and plan: acute right flank pain in patient w/ hx of nephrolithiasis and w/ a 9 mm non-obstructing stone in the right renal pelvis. She may have passed smaller stones earlier. Will ask patient to save all urine to be strained for nephrolithiasis and will give her APAP and zofran along w/ prn morphine for pain. consult urology (if available tomorrow, otherwise will have her follow up with them next week as outpatient; if she developes urgent need for intervention then may have to transfer over the weekend to tertiary center). Cover empirically w/ Ceftriaxone pending urine and blood cultures. Hydrate overnight w/ LR. (2) Complicated UTI (urinary tract infection): Status: Acute Assessment and plan: as above (3) Nephrolithiasis: Status: Chronic Assessment and plan: as above. History of Present Illness History of Present Illness Chief Complaint: right flank pain Narrative: 25 yr old Covid 19 vaccinated individual w/ PMH of presumed nephrolithiasis (had L. flank pain w/ gross hematuria during her in 2019) who presents to the ED w/ RUQ abominal pain w/ radiation to her right flank. Symptoms began as achiness in the right back for past month but progressively got worse over the past week and is now associated w/ right flank pain, nausea but no fevers or rigors and no dysuria or gross hematuria. Evaluation in the ER included UA suspicious for UTI (large amount of RBC, WBC and many bacteria although negative for nitrites) and CT abdomen and pelvis that demonstrated 9 mm stone in the right renal pelvis but no hydronephrosis but w/ perinephric stranding. Patient was afebrile on admission and CBC did not show a leukocytosis. Blood and urine cultures have been ordered. The ER staff treated her w/ iv fluids and antiemetics (zofran). Admission was requested for treatment of pyelonephritis. ER staff was contacting [facility] [place] urology to discuss management of her stones. Patient will be admitted to med/surg for pain and nausea control and empiric antibiotics while awaiting blood and urine culture. As there is no hydronephrosis, it is not anticipated that she will need any urgent urologic intervention. NASIM Fuentes from [facility] ED spoke w/ Dr. Forbes, urology from [facility] [place] who advised parenteral antibiotics, iv fluids and analgesics but if symptoms worsened and associated w/ hydronephrosis/hydroureter then it would be appropriate for transfer for urologic intervention. PFSH All Active Problems (Updated 04/11/21 @ 01:31 by Dong Subramanian) Nephrolithiasis (Chronic) Complicated UTI (urinary tract infection) (Acute) Flank pain (Acute) Back pain (Acute) Migraine (Chronic) Precordial catch syndrome (Acute 05/29/14) Exercise-induced asthma (Acute 12/16/14) Medical History (Updated 04/11/21 @ 01:31 by Dong Subramanian) Amblyopia left eye 05/06 Closed fracture of elbow right-07/06 Closed fracture of lower end of radius and ulna right-05/15 Contraception Depo Provera Q3mo since 2012. Pt will begin OCPs 11/2015. Family history of factor V Leiden mutation 08/2015 pt is neg for mutation. Hematuria Herpes labialis 05/[address] 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[facility], 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 [facility] Seatbelt use: always Helmet use: Yes Drive intox or ride w/intox 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 Date GA/Weeks # Outcome Route Wgt Sex Labor Lgth Anesthesia Location Prov Complic 07/12/18 40 No Successful vaginal 3912.234 g Male 2 hrs. 30 min. Betsy Navarro CNM Meds Allergies and Home Medications Allergies Allergy/AdvReac Type Severity Reaction Status Date / Time Sulfa (Sulfonamide Allergy Mild RASH Verified 04/10/21 20:22 Antibiotics) shellfish derived Allergy hives Verified 04/10/21 20:22 Home Medications Medication Instructions Recorded Confirmed Type epinephrine [EpiPen 2-Morgan] 0.3 mg IM ONCE #1 pack 11/26/13 04/10/21 History cetirizine [Zyrtec] 10 mg PO PRN PRN #30 tab-cap 09/10/14 04/10/21 History albuterol sulfate [ProAir HFA] 2 puff INHALATION Q4H PRN #1 12/16/14 04/10/21 History inhaler levalbuterol HCl 0.63 mg/3 mL 0.63 mg IH ONCE PRN 03/30/19 04/10/21 History solution for nebulization medroxyprogesterone 150 mg/mL 150 mg IM Q12W #1 ml 08/26/20 04/10/21 Rx intramuscular suspension acetaminophen [Acetaminophen Extra 1,000 mg PO PRN PRN 09/26/20 04/10/21 History Strength] Depo-Provera 150 mg/mL 150 mg IM ONCE #1 ml NS 11/21/20 Clinic intramuscular syringe Depo-Provera 150 mg/mL 150 mg IM ONCE #1 ml NS 02/13/21 04/10/21 Clinic intramuscular syringe medroxyprogesterone 400 mg/mL 400 mg IM ONCE #1 ml 02/13/21 04/10/21 Clinic intramuscular suspension Exam Const General: cooperative, healthy appearing, comfortable, no acute distress, well developed and well groomed Nutritional Appearance: average body habitus Orientation: alert, awake and oriented x3 HENMT Head: normal to inspection, normocephalic and atraumatic Ears: hearing grossly normal bilaterally General nose exam: external nose normal Face and sinus: normal facial exam Mouth: oral mucosae normal Eyes General: appearance normal, both eyes and all related structures Alignment and Position: alignment normal Periorbital: periorbital findings normal Eyelids: eyelids normal Conjunctivae: conjunctivae normal Sclera: sclerae normal Cornea: corneas normal Neck Neck: normal visual inspection, full ROM, no lymphadenopathy, no meningeal signs, trachea midline and supple Thyroid: thyroid normal Carotids: normal carotid upstroke Lymphatic: no lymphadenopathy noted Resp Effort & Inspection: normal respiratory effort and able to speak in complete sentences Auscultation: clear to auscultation bilaterally Cardio Jugular venous pressure: no JVD Palpation: normal PMI Rate: regular rate Rhythm: regular rhythm Heart Sounds: S1 normal, S2 normal and normal, physiologic split S2 Pulses: brachial pulses present, radial pulses present, dorsalis pedis present and normal peripheral pulses GI Inspection: normal to inspection and non-distended Palpation: soft, no hepatosplenomegaly and nontender Percussion: normal to percussion Auscultation: normal bowel sounds General: bimanual renal exam normal bilaterally and No CVA tenderness Back/Spine/Pelvis Back: no CVA tenderness Skin General skin exam: no rashes or lesions noted Neuro General: patient alert, patient awake and patient oriented x3 Cognition: normal cognition Speech: speech normal Motor: muscle tone normal throughout and strength 5/5 throughout Extrem General: normal to inspection, full ROM and capillary refill normal Psych Appearance: grossly normal and well kempt Mental Status: mental status grossly normal Speech and Movement: speech and movement normal Mood: congruent mood Affect: normal affect Attitude: cooperative Thought Process: normal Thought Content: normal Insight: insight good Judgment: judgment good Results Imaging Abdomen CT scan report/results: report reviewed Labs Result diagrams: 04/10/21 20:38 04/10/21 20:38 Labs: Laboratory Results - last 24 hr 04/10/21 04/10/21 04/10/21 20:38 20:38 20:38 WBC 9.66 RBC 5.09 Hgb 14.7 Hct 43.6 MCV 85.7 MCH 28.9 MCHC 33.7 RDW 11.5 L Plt Count 257 MPV 8.5 Immature Gran % 0.1 Neutrophils % 42.8 Lymphocytes % 46.6 Monocytes % 8.4 Eosinophils % 1.7 Basophils % 0.4 Nucleated RBC % 0 Absolute Neutrophils 4.14 Absolute Lymphocytes 4.50 H Absolute Monocytes 0.81 H Absolute Eosinophils 0.16 Absolute Basophils 0.04 D-Dimer 445 Sodium 141 Potassium 3.3 L Chloride 103 Carbon Dioxide 29.5 Anion Gap 8.5 BUN 9 Creatinine 0.8 Estimated GFR/1.73 m2 >= 60.00 Glucose 83 Calcium 8.8 Total Bilirubin 0.3 AST 16 ALT 30 Alkaline Phosphatase 94 Total Protein 7.7 Albumin 4.1 Lipase 112 Serum HCG, Qual Urine Color Urine Clarity Urine pH Ur Specific [place] Urine Protein Urine Ketones Urine Blood Urine Nitrite Urine Bilirubin Urine Urobilinogen Ur Leukocyte Esterase Urine RBC Urine WBC Ur Epithelial Cells Urine Crystals Urine Bacteria Urine Casts Urine Mucus Ur Culture Indicated? Urine Glucose COVID-19 Source 04/10/21 04/10/21 04/10/21 20:38 20:48 23:14 WBC RBC Hgb Hct MCV MCH MCHC RDW Plt Count MPV Immature Gran % Neutrophils % Lymphocytes % Monocytes % Eosinophils % Basophils % Nucleated RBC % Absolute Neutrophils Absolute Lymphocytes Absolute Monocytes Absolute Eosinophils Absolute Basophils D-Dimer Sodium Potassium Chloride Carbon Dioxide Anion Gap BUN Creatinine Estimated GFR/1.73 m2 Glucose Calcium Total Bilirubin AST ALT Alkaline Phosphatase Total Protein Albumin Lipase Serum HCG, Qual Cancelled Urine Color Yellow Urine Clarity Sl Cloudy Urine pH 7.0 Ur Specific [place] >= 1.030 H Urine Protein 30 H Urine Ketones Negative Urine Blood Large H Urine Nitrite Negative Urine Bilirubin Negative Urine Urobilinogen 0.2 Ur Leukocyte Esterase Negative Urine RBC >50 H Urine WBC 10-20 H Ur Epithelial Cells Few Urine Crystals Negative Urine Bacteria Many Urine Casts Negative Urine Mucus Negative Ur Culture Indicated? Yes Urine Glucose Negative COVID-19 Source Nasal/Nares Last Vital Signs Temp 36.2 C L 04/10/21 20:15 Pulse 92 H 04/10/21 20:15 Resp 14 04/10/21 20:15 BP 124/71 04/10/21 20:15 Pulse Ox 98 04/10/21 20:15
[2021-04-10] MEDS: Normal Saline 1,000 ML 1000 ML IV (23:31)
[2021-04-10 23:33] LABS: Lactate 0.8 mmol/L (0.6-1.4)
[2021-04-10 23:57] VITALS: BP 124/71; PULSE 92; RESP 14; TEMP 36.2; O2SAT 98
[2021-04-10 23:58] LABS: COVID-19 PCR Negative (Negative)
[2021-04-11] MEDS: Lactated Ringers 1,000 ML 150 ML IV ×2 (00:36→08:12)
[2021-04-11 00:37] VITALS: BP 125/78; PULSE 84; RESP 17; TEMP 36.9; O2SAT 98
[2021-04-11 00:41] LABS: Procalcitonin < 0.1 ng/mL
[2021-04-11 01:18] LABS: Magnesium 2.1 mg/dL (1.8-2.4)
[2021-04-11] MEDS: cefTRIAXone 1,000 MG in Normal Saline 50 ML 100 MG IVPB (01:27)
[2021-04-11] MEDS: Potassium Chloride 10 MEQ CAPCR 40 MEQ PO (01:29)
[2021-04-11 03:25] VITALS: BP 110/69; PULSE 76; RESP 17; TEMP 37; O2SAT 99
[2021-04-11 05:35] LABS: Abs Immature Grans 0.01 10^3/uL (0.0-0.06); Absolute Basophil Count 0.06 10^3/uL (0.0-0.2); Absolute Eosinophil Count 0.15 10^3/uL (0.0-0.7); Absolute Lymphocyte Count 3.46 10^3/uL (1.2-3.4); Absolute Monocyte Count 0.65 10^3/uL (0.1-0.8); Absolute Neutrophil Count 4.74 10^3/uL (1.2-6.7); Basophils % 0.7; Eosinophils % 1.7; HCT 37.6 % (36.0-46.0); HGB 12.5 g/dL (11.2-15.7); Immature Grans % 0.1; Lymphocytes % 38.1; MCH 28.9 pg (27.0-33.0); MCHC 33.2 % (32.0-36.0); MPV 8.5 fL (8.0-11.0); Monocytes % 7.2; Neutrophils % 52.2; Nucleated RBC 0 %; Platelet Count 220 10^3/uL (130-400); RBC 4.32 10^6/uL (3.93-5.22); RDW 11.7 % (11.7-14.6); RDW-SD 37.2 fL; WBC 9.07 10^3/uL (4.4-10.8)
[2021-04-11 05:57] LABS: BUN 6 mg/dL (7-18); CREATININE 0.9 mg/dL (0.55-1.02); Calcium 8.4 mg/dL (8.5-10.1); Chloride 106 mmol/L (98-107); Glucose 100 mg/dL (74-106); Potassium 4.2 mmol/L (3.5-5.1); Sodium 140 mmol/L (136-145)
[2021-04-11] MEDS: Ondansetron 4 MG/2 ML VIAL IVP (07:15)
[2021-04-11] MEDS: Normal Saline Flush 10 ML SYR (07:16)
[2021-04-11] MEDS: Enoxaparin 40 MG/0.4 ML SYR SC (08:12)
[2021-04-11 08:25] VITALS: BP 120/71; PULSE 83; RESP 12; TEMP 37.4; O2SAT 97
[2021-04-11] MEDS: Acetaminophen 325 MG TAB PO (09:16)
--- NOTE | 2021-04-11 11:07 | PDOC.CMIN ---
- If Service Date Differs Date of service: 04/11/21 Time of Service: 11:07 Care Management Initial Assess REASON FOR HOSPITALIZATION:: Nephrolithiasis, Pyelonephritis PAST MEDICAL HISTORY/PAST SURGICAL HISTORY:: All Active Problems (Updated 04/11/21 @ 01:31 by Dong Subramanian). Nephrolithiasis (Chronic). Complicated UTI (urinary tract infection) (Acute). Flank pain (Acute). Back pain (Acute). Migraine (Chronic). Precordial catch syndrome (Acute 05/29/14). Exercise-induced asthma (Acute 12/16/14). Medical History (Updated 04/11/21 @ 01:31 by Dong Subramanian). Amblyopia. left eye 05/06. Closed fracture of elbow. right-07/06. Closed fracture of lower end of radius and ulna. right-05/15. Contraception. Depo Provera Q3mo since 2012. Pt will begin OCPs 11/2015. Family history of factor V Leiden mutation. 08/2015 pt is neg for mutation. Hematuria. Herpes labialis. 05/12. Recurrent tonsillitis. Dr. Palomino. Renal colic on left side PREVIOUS FUNCTIONAL STATUS/SOCIAL/FAMILY SUPPORTS:: Sarah lives in [place], [place] with her Cezar and her two children. Her has been deployed for about a year and is scheduled to return home in 5 days. 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 She is independent at baseline and drives. CURRENT FUNCTIONAL STATUS:: Sarah was ambulating independently in her room when CM met with her. She was alert, oriented and easily engaged in conversation. Sarah is anticipating being discharged home later today with outpatient follow up with Dr. Abarca. She will call his office on Tuesday to schedule. Sarah has no concerns, her appetite has been good and pain well controlled. ADVANCE DIRECTIVES:: None on file Has patient been provided with info about the portal/API?: Yes Did the patient sign up for the portal?: Yes (Prior to admission) CODE STATUS:: Full Code INSURANCE COVERAGE / FINANCIAL ISSUES:: Health Plans[employer] CURRENT HOME/COMMUNITY SERVICES/EQUIPMENT:: N/A PRIMARY CARE PHYSICIAN:: Raiza Cruz POTENTIAL DISCHARGE NEEDS:: Outpatient follow up with urology PATIENT/FAMILY EDUCATION NEEDS:: Review discharge instructions, limitations and plan to follow up with community providers. ask me three. TRANSPORTATION:: Via private vehicle located in the parking lot vs transport by family. PLAN:: Sarah currently requires parenteral antibiotics, IV fluids and analgesics. Anticipate, Sarah will discharge home with no new services when medically ready. She will continue ABX and follow up with her PCP and Dr. Abarca. She will transport via private vehicle located in the parking lot if medically able. CM will continue to support discharge planning needs.
[2021-04-11 11:17] VITALS: BP 111/64; PULSE 78; RESP 12; TEMP 37.7; O2SAT 97
--- NOTE | 2021-04-11 13:34 | DSE_ITS ---
Date of service: 04/11/21 Time of Service: 12:00 DS: Diagnosis Discharge Diagnosis (1) Nephrolithiasis: Start date: 04/11/21 Start time: 12:00 Status: Acute Asessment and Plan: Found to have 9 mm nonobstructing stone by CT. Dr. Abarca was consulted. He agrees that patient can be seen as an outpatient as long as she is tolerating antibiotics without any dysuria. She is states pain is intermittent, feels well enough to go home. Microbiology does not reveal anything growing in cx however given stone with fever and sx will treat with levaquin for 5 days. Patient will follow up with Dr. Abarca next week as an outpatient unless she gets worse. Meaning unable to void or in excruciating pain as this is nonobstructing at this time but will need to be taken care of as an outpatient. Dr. Abarca consulted this am and agrees with plan. If she does not hear from office by Tuesday she is to call to speak to them about appt. Until then will prescribe 7 days levaquin, tramadol for pain and zofran for nausea. She feel well enough to go home. Eating and drinking w/o difficulty. (2) Flank pain: Start date: 04/11/21 Start time: 12:00 Status: Acute Asessment and Plan: worse to the right than the left, however that is the side the renal calculi is on. CT without hydronephrolithasis. as above (3) Complicated UTI (urinary tract infection): Start date: 04/11/21 Start time: 13:41 Status: Acute Asessment and Plan: as above will treat with levaquin for [address] Riley. Discharge Plan Disposition Patient Disposition: HOME Condition: Improving Discharge Details Reason For Visit: nephrolithiasis, pyelonephritis Admit Date/Time: 04/10/21 23:09 Admit Provider: Dong Subramanian Attending Provider: Dong Subramanian Primary Care Provider: Raiza Cruz [facility] Course Hospital Course: 25 yr old Covid 19 vaccinated individual w/ PMH of presumed nephrolithiasis (had L. flank pain w/ gross hematuria during her in 2019) who presented to the ED w/ RUQ abominal pain w/ radiation to her right flank. Symptoms began as achenes in the right back x 1 month but progressively got worse over the past week and is now associated w/ right flank pain, nausea but no fevers or rigors and no dysuria or gross hematuria. Evaluation in the ER included UA suspicious for UTI (large amount of RBC, WBC and many bacteria although negative for nitrites) and CT abdomen and pelvis demonstrating 9 mm stone in the right renal pelvis without hydronephrosis but w/ perinephric stranding. ED labs revealed no leukocytosis. Blood and urine cultures have been ordered. Admission was requested for treatment of pyelonephritis. Urology consulted, evaluated by Dr. Abarca this am. He does not feel at this time she needs in hospital treatment. As long as she is doing well with antibiotics. Microbiology stated that her urine cx was growing normal blade at this time, however given her u/a with 9 mm nonobstructing stone and sx will treat as complicated UTI. She is feeling better. She feels well enough to go home. She is being discharged on levaquin. She was told to return if the stone becomes obstructed, such as unable to make urine, or excruciating pain despite pain management with fevers. Dr. Abarca stated his office will call her Tuesday for outpatient follow up and if not for her to call for appt. Patient is agreeable. Will send home with antinausea, pain medication, and levaquin x 7 days. Home Meds and New Rx's Prescriptions: New levofloxacin 750 mg tablet 750 mg PO DAILY Qty: 7 RF: 0 prochlorperazine maleate [Compazine] 10 mg tablet 10 mg PO TID PRNQty: 30 RF: 0 oxycodone-acetaminophen [Percocet] 5-325 mg tablet 1 tab PO Q4H PRNQty: 20 RF: 0 Continued medroxyprogesterone [Depo-Provera] 150 mg/mL suspension 150 mg IM Q12W Qty: 1 RF: 3 medroxyprogesterone [Depo-Provera] 150 mg/mL syringe 150 mg IM ONCE Qty: 1 RF: 0 medroxyprogesterone [Depo-Provera] 150 mg/mL syringe 150 mg IM ONCE Qty: 1 RF: 0 medroxyprogesterone 400 mg/mL suspension 400 mg IM ONCE Qty: 1 RF: 0 levalbuterol HCl [Xopenex] 0.63 mg/3 mL solution for nebulization 0.63 mg IH ONCE PRNRF: 0 epinephrine [EpiPen 2-Morgan] 0.3 MG/0.3 ML auto-injector 0.3 mg IM ONCE Qty: 1 RF: 1 cetirizine [Zyrtec] 10 MG tablet,chewable 10 mg PO PRN PRNQty: 30 RF: 0 albuterol sulfate [ProAir HFA] 8.5 GM HFA aerosol inhaler 2 puff Inhalation Q4H PRN Qty: 1 RF: 1 acetaminophen [Acetaminophen Extra Strength] 500 mg Tablet 1,000 mg PO PRN PRNRF: 0 Discharge Instructions Instructions: Urinary Tract Infection in Women (DC), Kidney Infection (GEN) Additional Instructions: Take levaquin as soon as you pick it up Take the antinausea medication as needed Take percocet for pain every 4-6 hours Return to the ED if you are unable to urinate, or in such excruciating pain that the pain medication can not take the pain away. Follow up with Dr. Abarca as an outpatient. His office should call you Tuesday, if not call them by the afternoon Tuesday to schedule appt Eat yogurt daily Stand Alone Forms: Nursing Discharge Form Referrals: Zak Abarca MD [ [facility] STAFF PHYSICIAN] - (Call Tuesday afternoon if you have not heard from the office.) Activity:: Activity as Tolerated Equipment/Supplies:: No Equipment Needed Diet:: As Tolerated Discharge Orders Discharge Orders: Discharge Order (Routine); Ordered 04/11/21 Ordered By: Jane Nina DS: Summary Time Spent with Patient providing and/or coordinating discharge services: Less than 30 minutes Status at Discharge Functional status at discharge: independent ambulation Overall status at discharge: patient is progressing back to baseline Mental Status: mental status grossly normal Speech and Movement: speech and movement normal Mood: congruent mood Affect: normal affect Exam Const General: cooperative, healthy appearing, comfortable, no acute distress, well developed and well groomed Nutritional Appearance: average body habitus Orientation: alert, awake and oriented x3 HENMT Head: normal to inspection, normocephalic and atraumatic Ears: hearing grossly normal bilaterally General nose exam: external nose normal Face and sinus: normal facial exam Mouth: oral mucosae normal Eyes General: appearance normal, both eyes and all related structures Alignment and Position: alignment normal Periorbital: periorbital findings normal Eyelids: eyelids normal Conjunctivae: conjunctivae normal Sclera: sclerae normal Cornea: corneas normal Neck Neck: normal visual inspection, full ROM, no lymphadenopathy, no meningeal signs, trachea midline and supple Thyroid: thyroid normal Carotids: normal carotid upstroke Lymphatic: no lymphadenopathy noted Resp Effort & Inspection: normal respiratory effort and able to speak in complete sentences Auscultation: clear to auscultation bilaterally Cardio Jugular venous pressure: no JVD Palpation: normal PMI Rate: regular rate Rhythm: regular rhythm Heart Sounds: S1 normal and normal, physiologic split S2 Pulses: dorsalis pedis present GI Inspection: normal to inspection and non-distended Palpation: soft, no hepatosplenomegaly and nontender Percussion: normal to percussion Auscultation: normal bowel sounds General: No bimanual renal exam normal bilaterally and CVA tenderness on the right Skin General skin exam: no rashes or lesions noted Neuro General: patient alert, patient awake and patient oriented x3 Cognition: normal cognition Speech: speech normal Extrem General: normal to inspection, full ROM and capillary refill normal Psych Appearance: grossly normal and well kempt Mental Status: mental status grossly normal Speech and Movement: speech and movement normal Mood: congruent mood Affect: normal affect Attitude: cooperative Thought Process: normal Thought Content: normal Insight: insight good Judgment: judgment good DS: Data Vitals/I&O Vitals and I&O: Vital Signs Temperature 37.7 C H 04/11/21 11:17 Temperature Source Tympanic 04/11/21 11:17 Pulse 78 04/11/21 11:17 Pulse Rhythm Regular 04/11/21 07:15 Respiratory Rate 12 04/11/21 11:17 Respiratory Effort Non-Labored 04/11/21 07:15 Respiratory Depth Normal 04/11/21 07:15 Respiratory Pattern Normal 04/11/21 07:15 Blood Pressure 111/64 04/11/21 11:17 Pulse Oximetry 97 04/11/21 11:17 Oxygen Delivery Method Room Air 04/11/21 11:17 Oxygen Flow Rate 0 04/11/21 11:17 Pain Level 0 04/11/21 11:17 Comment 04/11/21 11:00 Intake & Output 01/07/22 01/08/22 01/08/22 23:59 11:59 23:59 Intake Total 1910 / 2700 790 / 2700 Output Total 1900 / 2400 500 / 2400 Balance 290 / 300 Weight 72.575 kg 71.8 kg Intake: IV 1000 / 1790 790 / 1790 Oral 910 / 910 Output: Urine 1900 / 2400 500 / 2400 Other: Urine Color Yellow Yellow Urine Appearance Clear Cloudy Urine Odor Normal Normal Strain Urine Result Negative-No Stones/Gravel Comment Void x1 in the toilet. Stool Size Small Stool Characteristics Soft Voiding Methods Toilet Data Completed and Pending Completed studies during hospitalization [Text1]: PROCEDURE INFORMATION: Exam: XR Chest Exam date and time: 04/10/2021 10:23 PM Age: 25 years old Clinical indication: Other: Ruq pain, TECHNIQUE: Imaging protocol: XR of the chest. Views: 2 views. COMPARISON: CT CHEST PE CTA 04/16/2020 9:47 AM FINDINGS: Lungs: Unremarkable. No consolidation. Pleural spaces: Unremarkable. No pleural effusion. No pneumothorax. Heart/Mediastinum: Unremarkable. No cardiomegaly. Bones/joints: Unremarkable. IMPRESSION: No acute findings. Exam(s) PROCEDURE INFORMATION: Exam: CT Abdomen And Pelvis With Contrast Exam date and time: 04/10/2021 9:54 PM Age: 25 years old Clinical indication: Other: Ruq pain, right flank pain TECHNIQUE: Imaging protocol: Computed tomography of the abdomen and pelvis with contrast. Contrast route: INTRAVENOUS (IV); COMPARISON: US ABDOMEN ULTRASOUND (P) 01/18/2017 4:31 PM FINDINGS: Liver: Normal. No mass. Gallbladder and bile ducts: Normal. No calcified stones. No ductal dilation. Pancreas: Normal. No ductal dilation. Spleen: Normal. No splenomegaly. Adrenal glands: Normal. No mass. Kidneys and ureters: 9 mm calculus in the right renal pelvis with trace stranding adjacent to the renal pelvis but without hydronephrosis. Stomach and bowel: Unremarkable. No obstruction. No mucosal thickening. Appendix: No evidence of appendicitis. Intraperitoneal space: Unremarkable. No free air. No significant fluid collection. Vasculature: Unremarkable. No abdominal aortic aneurysm. Lymph nodes: Unremarkable. No enlarged lymph nodes. Urinary bladder: Unremarkable as visualized. Reproductive: Unremarkable as visualized. Bones/joints: Unremarkable. No acute fracture. Soft tissues: Unremarkable. IMPRESSION: No acute finding. Labs on day of discharge: Labs from last 24 hours 04/11/21 04/11/21 04/10/21 05:23 05:23 23:30 WBC 9.07 RBC 4.32 Hgb 12.5 D Hct 37.6 MCV 87.0 MCH 28.9 MCHC 33.2 RDW 11.7 Plt Count 220 MPV 8.5 Immature Gran % 0.1 Neutrophils % 52.2 Lymphocytes % 38.1 Monocytes % 7.2 Eosinophils % 1.7 Basophils % 0.7 Nucleated RBC % 0 Absolute Neutrophils 4.74 Absolute Lymphocytes 3.46 H Absolute Monocytes 0.65 Absolute Eosinophils 0.15 Absolute Basophils 0.06 D-Dimer VBG Lactate Sodium 140 Potassium 4.2 D Chloride 106 Carbon Dioxide 26.0 Anion Gap 8.0 BUN 6 L Creatinine 0.9 Estimated GFR/1.73 m2 >= 60.00 Glucose 100 Calcium 8.4 L Magnesium 2.1 Total Bilirubin AST ALT Alkaline Phosphatase Total Protein Albumin Lipase Procalcitonin Serum HCG, Qual Urine Color Urine Clarity Urine pH Ur Specific Adrian Urine Protein Urine Ketones Urine Blood Urine Nitrite Urine Bilirubin Urine Urobilinogen Ur Leukocyte Esterase Urine RBC Urine WBC Ur Epithelial Cells Urine Crystals Urine Bacteria Urine Casts Urine Mucus Ur Culture Indicated? Urine Glucose COVID-19 Source SARS-CoV-2 (PCR) 04/10/21 04/10/21 04/10/21 23:30 23:14 20:48 WBC RBC Hgb Hct MCV MCH MCHC RDW Plt Count MPV Immature Gran % Neutrophils % Lymphocytes % Monocytes % Eosinophils % Basophils % Nucleated RBC % Absolute Neutrophils Absolute Lymphocytes Absolute Monocytes Absolute Eosinophils Absolute Basophils D-Dimer VBG Lactate 0.8 Sodium Potassium Chloride Carbon Dioxide Anion Gap BUN Creatinine Estimated GFR/1.73 m2 Glucose Calcium Magnesium Total Bilirubin AST ALT Alkaline Phosphatase Total Protein Albumin Lipase Procalcitonin < 0.1 Serum HCG, Qual Urine Color Yellow Urine Clarity Sl Cloudy Urine pH 7.0 Ur Specific Adrian >= 1.030 H Urine Protein 30 H Urine Ketones Negative Urine Blood Large H Urine Nitrite Negative Urine Bilirubin Negative Urine Urobilinogen 0.2 Ur Leukocyte Esterase Negative Urine RBC >50 H Urine WBC 10-20 H Ur Epithelial Cells Few Urine Crystals Negative Urine Bacteria Many Urine Casts Negative Urine Mucus Negative Ur Culture Indicated? Yes Urine Glucose Negative COVID-19 Source Nasal/Nares SARS-CoV-2 (PCR) Negative 04/10/21 04/10/21 04/10/21 20:38 20:38 20:38 WBC 9.66 RBC 5.09 Hgb 14.7 Hct 43.6 MCV 85.7 MCH 28.9 MCHC 33.7 RDW 11.5 L Plt Count 257 MPV 8.5 Immature Gran % 0.1 Neutrophils % 42.8 Lymphocytes % 46.6 Monocytes % 8.4 Eosinophils % 1.7 Basophils % 0.4 Nucleated RBC % 0 Absolute Neutrophils 4.14 Absolute Lymphocytes 4.50 H Absolute Monocytes 0.81 H Absolute Eosinophils 0.16 Absolute Basophils 0.04 D-Dimer 445 VBG Lactate Sodium Potassium Chloride Carbon Dioxide Anion Gap BUN Creatinine Estimated GFR/1.73 m2 Glucose Calcium Magnesium Total Bilirubin AST ALT Alkaline Phosphatase Total Protein Albumin Lipase Procalcitonin Serum HCG, Qual Cancelled Urine Color Urine Clarity Urine pH Ur Specific Adrian Urine Protein Urine Ketones Urine Blood Urine Nitrite Urine Bilirubin Urine Urobilinogen Ur Leukocyte Esterase Urine RBC Urine WBC Ur Epithelial Cells Urine Crystals Urine Bacteria Urine Casts Urine Mucus Ur Culture Indicated? Urine Glucose COVID-19 Source SARS-CoV-2 (PCR) 04/10/21 20:38 WBC RBC Hgb Hct MCV MCH MCHC RDW Plt Count MPV Immature Gran % Neutrophils % Lymphocytes % Monocytes % Eosinophils % Basophils % Nucleated RBC % Absolute Neutrophils Absolute Lymphocytes Absolute Monocytes Absolute Eosinophils Absolute Basophils D-Dimer VBG Lactate Sodium 141 Potassium 3.3 L Chloride 103 Carbon Dioxide 29.5 Anion Gap 8.5 BUN 9 Creatinine 0.8 Estimated GFR/1.73 m2 >= 60.00 Glucose 83 Calcium 8.8 Magnesium Total Bilirubin 0.3 AST 16 ALT 30 Alkaline Phosphatase 94 Total Protein 7.7 Albumin 4.1 Lipase 112 Procalcitonin Serum HCG, Qual Urine Color Urine Clarity Urine pH Ur Specific Adrian Urine Protein Urine Ketones Urine Blood Urine Nitrite Urine Bilirubin Urine Urobilinogen Ur Leukocyte Esterase Urine RBC Urine WBC Ur Epithelial Cells Urine Crystals Urine Bacteria Urine Casts Urine Mucus Ur Culture Indicated? Urine Glucose COVID-19 Source SARS-CoV-2 (PCR) 04/10/21 23:25 Blood Blood Culture - Pending 04/10/21 23:30 Blood Blood Culture - Pending Preliminary micro results at discharge 04/10/21 20:48 Urine Culture - Preliminary Urine - Reflex from Ua Gram Positive Blade,Mixed 04/10/21 23:25 Blood Culture - Pending Blood 04/10/21 23:30 Blood Culture - Pending Blood PFSH All Active Problems Nephrolithiasis (Acute) Complicated UTI (urinary tract infection) (Acute) Flank pain (Acute) Back pain (Acute) Migraine (Chronic) Precordial catch syndrome (Acute 05/29/14) Exercise-induced asthma (Acute 12/16/14) Medical History Amblyopia left eye 05/06 Closed fracture of elbow right-07/06 Closed fracture of lower end of radius and ulna right-05/15 Contraception Depo Provera Q3mo since 2012. Pt will begin OCPs 11/2015. Family history of factor V Leiden mutation 08/2015 pt is neg for mutation. Hematuria Herpes labialis 05/[address] 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[facility], 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 [facility] Seatbelt use: always Helmet use: Yes Drive intox or ride w/intox 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 Date GA/Weeks # Outcome Route Wgt Sex Labor Lgth Anesthes ia Location Prov Complic 07/12/18 40 No Successful vaginal 3912.234 g Male 2 hrs. 30 min. Betsy Navarro CNM
--- NOTE | 2021-04-11 15:12 | PDOC.CMDIS ---
- If Service Date Differs Date of service: 04/11/21 Time of Service: 15:12 LACE Index Scoring Tool - Questions: Length of Stay (in days): 1 Acuity (Admit via E.D.?): Yes E.D. Visits: 3 - Answers: Total Score: 7 Risk of Readmission: Low Risk Care Management Discharge Reason for Hospitalization: Nephrolithiasis, Pyelonephritis Discharge Plan: Discharge home with RX's for Levofloxacin, Compazine and oxycodone. Transportation via private vehicle with family. Follow up with out patient providers and discharge plan of care as prescribed. Sarah will call Dr. Abarca's office on Tuesday for an appointment. Patient/Family Education Needs: Review discharge instructions, medications, limitations and plan to follow up with community providers. Please provide contact info to Dr. Abarca's office. ask me three.
== END 2021-04-11 14:47 | disposition home or self-care (01) ==
LOC: ER 23:53 → MS 04-11 00:21
PROVIDERS: Admitting Provider Internal Medicine; Emergency Provider Physician Assistant; PCP Nurse Practitioner Family; Visit Provider Internal Medicine
DX: N20.0 Calculus of kidney (principal); N39.0 Urinary tract infection, site not specified; G43.909 Migraine, unspecified, not intractable, without status migrainosus; R01.2 Other cardiac sounds; J45.990 Exercise induced bronchospasm
CPT/HCPCS: 36415; 80048; 80053; 81025; 83690; 84145; 87040; 87635; 93005; 96361; 96374; 99285; J1650; 71046; 74177; 81003; 81015; 83605; 83735; 84703; 85025; 85379; 87086; 93010; 99217; 99219; J0696; J2405; J3480

== ENCOUNTER 2021-04-21 01:30 | Outpatient (CLI) | payer OTHER, SELFPAY ==
[2021-04-21 10:39] LABS: Source Nasal/Nares
[2021-04-21 12:40] LABS: COVID-19 PCR Negative (Negative)
== END 2021-04-21 01:31 | disposition home or self-care (01) ==
LOC: LBO 01:31
PROVIDERS: PCP Nurse Practitioner Family; Visit Provider Urology
DX: Z20.822 Contact with and (suspected) exposure to COVID-19 (principal)
CPT/HCPCS: 87635

== ENCOUNTER 2021-04-23 07:27 | Day surgery (SDC) | payer OTHER, SELFPAY ==
[2021-04-23] VITALS (10 sets, daily range): BP systolic 114–137; BP diastolic 72–88; PULSE 78–105; RESP 10–24; TEMP 36.3–36.9; O2SAT 95–99; BMI 28.9
--- NOTE | 2021-04-23 07:44 | W.ANESPRE ---
General Info Date of Service Date Performed: 04/23/21 Height: 5 ft 2 in Weight: 71.8 kg Body Mass Index (BMI): 28.9 Surgical Procedure: Operation Date: 04/23/21 08:25 Proposed Procedures Side Surgeon p Cystoscopy/Laser/ Right Retrograde/Ureteroscopy/possible stent Right Zak Abarca MD Meds Allergies and Home Medications Allergies Allergy/AdvReac Type Severity Reaction Status Date / Time Sulfa (Sulfonamide Allergy Mild RASH Verified 04/23/21 07:38 Antibiotics) shellfish derived Allergy hives Verified 04/23/21 07:38 Home Medication Medication Instructions Recorded epinephrine [EpiPen 2-Morgan] 0.3 mg IM ONCE #1 pack 11/26/13 cetirizine [Zyrtec] 10 mg PO PRN PRN #30 tab-cap 09/10/14 albuterol sulfate [ProAir HFA] 2 puff INHALATION Q4H PRN #1 12/16/14 inhaler levalbuterol HCl 0.63 mg/3 mL 0.63 mg IH ONCE PRN 03/30/19 solution for nebulization medroxyprogesterone 150 mg/mL 150 mg IM Q12W #1 ml 08/26/20 intramuscular suspension acetaminophen [Acetaminophen Extra 1,000 mg PO PRN PRN 09/26/20 Strength] oxycodone-acetaminophen [Percocet] 1 tab PO Q4H PRN #20 tab 04/11/21 prochlorperazine maleate 10 mg PO TID PRN #30 tab 04/11/21 [Compazine] Current Visit Medications: Current Medications Generic Name Dose Route Start Last Admin Trade Name Freq PRN Reason Stop Dose Admin Ringer's Solution 1,000 mls @ 80 mls/hr 04/23/21 06:00 IV 05/22/21 23:59 INFUSION MARISSA Cefazolin Sodium/Dextrose 2 gm in 50 mls @ 100 mls/hr 04/23/21 06:00 Ancef Duplex IVPB 04/23/21 16:00 PREOP MARISSA IV Miscellaneous Supplies 1 each 04/23/21 06:00 Iv Access IV 05/22/21 23:59 DIRECTED MARISSA Sodium Chloride 0 ml 04/23/21 06:00 Normal Saline Flush 10 Ml Syr IV 05/22/21 23:59 PRN PRN Sodium Chloride 0 ml 04/23/21 06:00 Normal Saline 10 Ml Vial IJ 05/22/21 23:59 DIRECTED PRN Sterile Water 0 ml 04/23/21 06:00 Water,Injection,Sterile 10 Ml Vial IJ 05/22/21 23:59 DIRECTED PRN PFSH Active Problems Active Problems: Problem Status Onset Code Exercise-induced asthma 12/16/14 J45.990 Precordial catch syndrome 05/29/14 R07.2 Migraine G43.909 Back pain M54.9 Flank pain R10.9 Nephrolithiasis N20.0 Medical History Medical History (Updated 04/23/21 @ 07:37 by Vane Carpio RN) Amblyopia left eye 05/06 Closed fracture of elbow right-07/06 Closed fracture of lower end of radius and ulna right-05/15 Contraception Depo Provera Q3mo since 2012. Pt will begin OCPs 11/2015. Family history of factor V Leiden mutation 08/2015 pt is neg for mutation. Hematuria Herpes labialis 05/12 Normal colonoscopy Recurrent tonsillitis Dr. Palomino Renal colic on left side Tonsil stone Surgical History Surgical History [place] teeth extracted Tobacco Smoking/Tobacco Use Status: Never Alcohol Alcohol Intake: current Alcohol intake frequency: holidays/special occasions only Substance Use Substance use: Never Substance use type: does not use Prental History History 2 Para 2 Hx # Term Pregnancies 2 Multiple births 0 Hx # Pregnancies 0 Ectopic pregnancies 0 AB induced 0 Hx Number of Living Children 2 AB spontaneous 0 Past Pregnancies Del. Date GA/Weeks # Outcome Route Wgt Sex Labor Lgth Anesthesia Location Prov [facility] 07/12/18 40 No Successful vaginal 3912.234 g Male 2 hrs. 30 min. Betsy Navarro CNM Vital Signs and Lab Results Lab Results Blood Type / Crossmatch: No Data to Display Complete Blood Count: White Blood Count 9.07 10^3/uL (4.4-10.8) 04/11/21 05:23 04/11/21 Red Blood Count 4.32 10^6/uL (3.93-5.22) 04/11/21 05:23 04/11/21 Hemoglobin 12.5 g/dL (11.2-15.7) 04/11/21 05:23 04/11/21 Hematocrit 37.6 % (36.0-46.0) 04/11/21 05:23 04/11/21 Platelet Count 220 10^3/uL (130-400) 04/11/21 05:23 04/11/21 Venous Blood Lactate 0.8 mmol/L (0.6-1.4) 04/10/21 23:30 04/10/21 Complete Metabolic Panel: Sodium Level 140 mmol/L (136-145) 04/11/21 05:23 04/11/21 Potassium Level 4.2 mmol/L (3.5-5.1) 04/11/21 05:23 04/11/21 Chloride Level 106 mmol/L (98-107) 04/11/21 05:23 04/11/21 Carbon Dioxide Level 26.0 mmol/L (21.0-32.0) 04/11/21 05:23 04/11/21 Blood Urea Nitrogen 6 mg/dL (7-18) L 04/11/21 05:23 04/11/21 Creatinine 0.9 mg/dL (0.55-1.02) 04/11/21 05:23 04/11/21 Estimated GFR/1.73 m2 >= 60.00 (mL/min/1.73m2) 04/11/21 05:23 04/11/21 Magnesium Level 2.1 mg/dL (1.8-2.4) 04/10/21 23:30 04/10/21 Calcium Level 8.4 mg/dL (8.5-10.1) L 04/11/21 05:23 04/11/21 Albumin 4.1 g/dL (3.4-5.0) 04/10/21 20:38 04/10/21 Glucose Level 100 mg/dL (74-106) 04/11/21 05:23 04/11/21 Liver Function Panel: Alanine Aminotransferase (ALT/SGPT) 30 U/L (14-59) 04/10/21 20:38 04/10/21 Aspartate Amino Transf (AST/SGOT) 16 U/L (15-37) 04/10/21 20:38 04/10/21 Coagulation Panel: D-Dimer 445 ng/mlFEU (<500) 04/10/21 20:38 04/10/21 Cardiac Panel: No Data to Display Arterial Blood Gas: No Data to Display Venous Blood Gas: No Data to Display Pancreas Panel: Lipase 112 U/L (73-393) 04/10/21 20:38 04/10/21 Thyroid Panel: No Data to Display Infectious Disease: Coronavirus (COVID-19)(PCR) Negative (Negative) 04/21/21 09:33 04/21/21 Coronavirus 2019 Source Nasal/Nares 04/21/21 09:33 04/21/21 Blood Cultures: No Data to Display Toxicology Panel: No Data to Display Panel: No Data to Display Imaging and Studies Imaging and Studies Study information below may be from another EMR and interpreted by another provider. Please see original notes in EMR for more complete details. EKG Summary: DATE/TIME OF SERVICE: 04/10/212035 : 1995PERFORMING LOCATION: [place] Exam: Resting ECG Reason for Exam: shortness of breath, epigastric pain Patient Location: E HR:86 bpm ECG Measurements Heart Rate 86 AXIS NC 105 P 69 QRSd 71 QRS 71 QT 361 T59 QTc 433 Conclusion Sinus rhythm...normal P axis, V-rate 60- 99 Pulmonary Function Summary: FEBRUARY 07, 2019 REQUESTING PROVIDER: Raiza Cruz SPIROMETRY: Shows no evidence of obstructive airways disease. No bronchodilator testing was carried out. LUNG VOLUME: Shows no evidence of restriction. DIFFUSION CAPACITY: Elevated. AIRWAYS RESISTANCE: Normal. IMPRESSION: Isolated, elevated diffusion capacity. This constellation of findings can be seen in asthma. If the diagnosis of asthma is in question then proceeding the Methacholine challenge testing may prove to be useful. Anesthesia Assessment and Plan Anesthesia History Personal History: No History of Anesthesia Complications Family History: No Family History of Anesthesia Complications Exercise Tolerance Exercise Tolerance: Metabolic Equivalents>4 Pertinent Negatives Pertinent Negatives: No Symptoms of GERD, No Major Cardiovascular Symptoms or Complaints, No Major Pulmonary Symptoms or Complaints and No History of CVA/TIA Cardiac & Pulmonary Exam Cardiac Exam: Normal S1/S2 Heart Sounds Pulmonary Exam: Clear Bilateral Breath Sounds Implantable Cardiac Device Does patient have a Pacemaker or an ICD?: No Airway Exam Known Difficult Airway: No Mallampati Class: 1 Mouth Opening: Normal (> 3cm) Thyromental Distance: Greater than 3 cm Neck Range of Motion: Full ROM Neck Circumference: Normal Teeth Condition: Normal Dentition ASA Classification ASA Score: ASA 2 Emergency Case?: No NPO Status NPO Status: NPO Clears >2 hours, Solids >8 hours Status Status: Negative HCG Anesthesia Plan Resuscitation Status: Full Code Anesthesia Technique: General Anesthesia Airway Planned: Natural Airway Monitors Used: Standard Monitors
--- NOTE | 2021-04-23 08:07 | HPE_ITS ---
Date of service: 04/23/21 Time of Service: 08:07 Assessment and Plan Assessment and plan (1) Nephrolithiasis: Status: Acute Assessment and plan: She presents for cystoscopy, right retrograde pyelogram, right flexible ureteroscopy with holmium laser lithotripsy. We discussed potential complications including bleeding, infection, ureteral injuries/inability to access stone requiring ureteral stent and staged procedures. History of Present Illness History of Present Illness Chief Complaint: Right renal stone Narrative: This is a 25-year-old woman who describes an episode of left-sided flank pain and hematuria back in 2019. The episode occurred while she was . She was admitted with a presumptive diagnosis of kidney stones. No specific stone was seen on ultrasound. A CAT scan was not performed. She improved with hydration and had no recurrence of either the hematuria or the flank pain. She has been having some intermittent right back and flank discomfort for the past month. She was seen in the emergency room this past weekend. A CT demonstrated a 9 mm right kidney stone. Her urinalysis was worrisome for an infection, so she was admitted for possible pyelonephritis. Her urine and blood cultures were ultimately negative for any type of bacterial growth. She continues to have intermittent pain with nausea. She is not having any fevers or chills. She tells me that her pain seems to be worse when she is upright. She has some improvement in her symptoms when she lies down. She has no history of hyperparathyroid disease or gout. She has never had any type of urologic surgery. Review of Systems Narrative: No fevers or chills Seasonal allergies. No vision change or dysphasia No diabetes or thyroid dysfunction Exercise induced asthma. No hemoptysis No chest pain or palpitations c/o nausea. No vomiting, hepatitis, ulcers, jaundice Hx migraines. No seizures or peripheral neuropathy No bleeding disorders or anemia No gout PFSH All Active Problems (Updated 04/23/21 @ 07:37 by Vane Carpio RN) Exercise-induced asthma (Acute 12/16/14) Precordial catch syndrome (Acute 05/29/14) Migraine (Chronic) Back pain (Acute) Flank pain (Acute) Nephrolithiasis (Acute) Medical History (Updated 04/23/21 @ 07:37 by Vane Carpio RN) Amblyopia left eye 05/06 Closed fracture of elbow right-07/06 Closed fracture of lower end of radius and ulna right-05/15 Contraception Depo Provera Q3mo since 2012. Pt will begin OCPs 11/2015. Family history of factor V Leiden mutation 08/2015 pt is neg for mutation. Hematuria Herpes labialis 05/12 Normal colonoscopy Recurrent tonsillitis Dr. Palomino Renal colic on left side Tonsil stone Surgical History [place] teeth extracted Family History Mother Factor V Leiden mutation with 2 blood clots, one following Mental disorder PTSD, anxiety Headache disorder Asthma Father Personal history of malignant neoplasm skin cancer-not melanoma Asthma Sister Diabetes Asthma Social History Smoking/Tobacco Use Status: Never Smoking risk assessment performed?: Yes Alcohol Intake: current Alcohol Intake frequency: holidays/special occasions only Alcohol type: hard liquor Drug use: Never Substance use type: does not use Adopted: No Household members: spouse, children and other Details: Manisha Nguyen 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[employer], [employer] Seatbelt use: always Helmet use: Yes Drive intox or ride w/intox industrial tractor driver: No Water heater temp set <120 deg: Yes Working smoke detector in home: Yes Fire extinguisher in home: Yes Carbon monox detector in home: Yes Firearms in home: Yes Firearms unloaded and locked: No Do you feel safe at home: Yes Do you feel safe in your relationship?: Yes Victim of physical abuse: No Victim of emotional abuse: No Victim of sexual abuse: No History History 2 Para 2 Hx # Term Pregnancies 2 Multiple births 0 Hx # Pregnancies 0 Ectopic pregnancies 0 AB induced 0 Hx Number of Living Children 2 AB spontaneous 0 Past Pregnancies Del. Date GA/Weeks # Outcome Route Wgt Sex Labor Lgth Anesthes ia Location [facility] 07/12/18 40 No Successful vaginal 3912.234 g Male 2 hrs. 30 min. Betsy Navarro CNM Meds Allergies and Home Medications Allergies Allergy/AdvReac Type Severity Reaction Status Date / Time Sulfa (Sulfonamide Allergy Mild RASH Verified 04/23/21 07:38 Antibiotics) shellfish derived Allergy hives Verified 04/23/21 07:38 Home Medications Medication Instructions Recorded Confirmed Type epinephrine [EpiPen 2-Morgan] 0.3 mg IM ONCE #1 pack 11/26/13 04/23/21 History cetirizine [Zyrtec] 10 mg PO PRN PRN #30 tab-cap 09/10/14 04/23/21 History albuterol sulfate [ProAir HFA] 2 puff INHALATION Q4H PRN #1 12/16/14 04/23/21 History inhaler levalbuterol HCl 0.63 mg/3 mL 0.63 mg IH ONCE PRN 03/30/19 04/23/21 History solution for nebulization medroxyprogesterone 150 mg/mL 150 mg IM Q12W #1 ml 08/26/20 04/23/21 Rx intramuscular suspension acetaminophen [Acetaminophen Extra 1,000 mg PO PRN PRN 09/26/20 04/21/21 History Strength] Depo-Provera 150 mg/mL 150 mg IM ONCE #1 ml NS 11/21/20 04/21/21 Clinic intramuscular syringe Depo-Provera 150 mg/mL 150 mg IM ONCE #1 ml NS 02/13/21 04/21/21 Clinic intramuscular syringe medroxyprogesterone 400 mg/mL 400 mg IM ONCE #1 ml 02/13/21 04/23/21 Clinic intramuscular suspension oxycodone-acetaminophen [Percocet] 1 tab PO Q4H PRN #20 tab 04/11/21 04/23/21 Rx prochlorperazine maleate 10 mg PO TID PRN #30 tab 04/11/21 04/23/21 Rx [Compazine] Exam Const General: cooperative Neck Neck: supple Resp Effort & Inspection: normal respiratory effort Auscultation: clear to auscultation bilaterally Cardio Rate: regular rate Rhythm: regular rhythm GI Inspection: normal to inspection Palpation: soft and no masses Neuro General: patient alert, patient awake and patient oriented x3 Results Last Vital Signs Temp 36.5 C 04/23/21 07:41 Pulse 94 H 04/23/21 07:41 Resp 16 04/23/21 07:41 BP 114/74 04/23/21 07:41 Pulse Ox 97 04/23/21 07:41
[2021-04-23] MEDS: Lactated Ringers 1,000 ML 80 ML IV (08:11)
[2021-04-23] MEDS: ceFAZolin 2 GM/50 ML BAG IVPB (08:37)
[2021-04-23] MEDS: Lidocaine 2% Jelly 6 ML SYR (08:45)
[2021-04-23] MEDS: Omnipaque 300 MG/ML 50 ML BTL (09:18)
--- NOTE | 2021-04-23 09:49 | DI.RAD_ITS ---
Exam(s) XR RETROGRADE IN OR EXAM: XR RETROGRADE IN OR CLINICAL HISTORY: Nephrolithiasis. TECHNIQUE: 2D and realtime digital imaging was performed. CONTRAST MATERIAL: None COMPARISON: No exams were available for comparison FINDINGS: Fluoroscopy during urologic procedure. See procedure report for details. Total fluoroscopy time 21.3 seconds Cumulative dose 4.27mGy IMPRESSION: RADIATION DOSE DELIVERED: gomez Hdz=4.27 mGy
--- NOTE | 2021-04-23 09:54 | W.PM.DSUDISC ---
Discharge Plan Disposition Patient Disposition: HOME Condition: Stable Discharge Details Reason For Visit: right renal stone Attending Provider: Zak Abarca Primary Care Provider: Raiza Cruz Home Meds and New Rx's Prescriptions: New ketorolac 10 mg tablet 10 mg PO TID PRN (Reason: pain) 5 Days Qty: 15 RF: 0 No Action medroxyprogesterone [Depo-Provera] 150 mg/mL suspension 150 mg IM Q12W Qty: 1 RF: 3 medroxyprogesterone [Depo-Provera] 150 mg/mL syringe 150 mg IM ONCE Qty: 1 RF: 0 medroxyprogesterone [Depo-Provera] 150 mg/mL syringe 150 mg IM ONCE Qty: 1 RF: 0 medroxyprogesterone 400 mg/mL suspension 400 mg IM ONCE Qty: 1 RF: 0 levalbuterol HCl [Xopenex] 0.63 mg/3 mL solution for nebulization 0.63 mg IH ONCE PRNRF: 0 epinephrine [EpiPen 2-Morgan] 0.3 MG/0.3 ML auto-injector 0.3 mg IM ONCE Qty: 1 RF: 1 cetirizine [Zyrtec] 10 MG tablet,chewable 10 mg PO PRN PRNQty: 30 RF: 0 albuterol sulfate [ProAir HFA] 8.5 GM HFA aerosol inhaler 2 puff Inhalation Q4H PRN Qty: 1 RF: 1 acetaminophen [Acetaminophen Extra Strength] 500 mg Tablet 1,000 mg PO PRN PRNRF: 0 prochlorperazine maleate [Compazine] 10 mg tablet 10 mg PO TID PRNQty: 30 RF: 0 oxycodone-acetaminophen [Percocet] 5-325 mg tablet 1 tab PO Q4H PRNQty: 20 RF: 0 Discharge Instructions Additional Instructions: no need to strain urine followup early next week for stent removal - tell my office pt has string on end of stent followup appt @ 6 weeks with renal US script for toradol sent to pharmacy - pt should not take NSAIDs with toradol but OK to take tylenol or percocet with the toradol Activity:: Activity as Tolerated Shower/Bathe:: 24 hours Diet:: As Tolerated Discharge Orders Discharge Orders: Discharge Order (Routine); Ordered 04/23/21 Ordered By: Zak Abarca DS: Diagnosis Discharge Diagnosis (1) Nephrolithiasis: Status: Acute
--- NOTE | 2021-04-23 10:03 | ROE_ITS ---
Date of service: 04/23/21 Time of Service: 10:03 Operative Note Operative Note DATE OF PROCEDURE: 04/23/21 PRE-OP DIAGNOSIS: right renal stone POST-OP DIAGNOSIS: same PROCEDURE: Cystoscopy, right retrograde pyelogram, right flexible ureteroscopy with holmium laser lithotripsy, extraction of multiple stone fragments, insert right ureteral stent SURGEON: Zak Abarca ANESTHESIA TYPE: General LMA/ETT Refer to Anesthesia Record ESTIMATED BLOOD LOSS: 25 PATHOLOGY: other (stone for chemical analysis) COMPLICATIONS: None Patient was transported to: PACU Patient's condition: stable Implants: 4.8 [place] by 22 to 30 cm right ureteral stent Indications: This is a 25-year-old woman who presented to the emergency room with right-sided flank pain. She was found to have a 9 mm stone at the ureteropelvic junction. Her urinalysis was concerning for infection, but her culture and sensitivity showed no bacterial growth. Presents now for stone manipulation. Findings: Stone in renal pelvis Procedure Description: Patient was brought to the operating room on 04/23/2021. She was given preoperative IV antibiotics. After successful induction of general anesthesia, she was placed in the dorsal lithotomy position. Her genitalia was prepped and draped. 2% Xylocaine jelly was instilled into the urethra. A 22 [place] rigid cystoscope was passed through the urethra into the bladder. The bladder was inspected with a 30 degree lens. Both ureteral orifices appeared normal with no blood seen coming from either orifice. The right orifice was cannulated with a six [place] access catheter. A retrograde pyelogram was obtained by injecting Omnipaque through the access catheter under fluoroscopic guidance. The pyelogram demonstrated a filling defect in the renal pelvis. I then passed a guidewire through the lumen of the access catheter and removed the catheter. I passed the double lumen catheter over the wire and positioned a second wire. We chose one of the wires as a working wire and the other as a safety wire. We passed the ureteral access sheath over the working wire leaving the safety wire in place. I then passed the flexible ureteroscope through the access sheath and advanced the scope up to the renal pelvis. A large stone was seen in the renal pelvis. The stone was then treated with a 272 ?m holmium laser fiber. We chose a power setting of 200 and a rate of eight. We were able to fracture the stone and then we began grasping the stone fragments in a zero tip stone basket. Multiple stone fragments were removed and are sent to the laboratory for chemical analysis. At the completion of the procedure only very small stone fragments remained in the kidney. Because of the edema caused by our manipulation, we elected to place a short-term ureteral stent. We chose a 4.8 [place] variable length stent and advanced it over the safety wire. The proximal end of the stent was curled in the renal pelvis and the distal and was curled in the bladder. The positioning of the stent was confirmed both fluoroscopically and cystoscopically. We left a safety string on the end of the stent and brought the safety string through the patient's urethra and tucked the end of the safety string into the patient's vaginal cavity. The patient tolerated this procedure well with no complications. She was taken to the recovery room in stable condition.
[2021-04-23] MEDS: Phenazopyridine 200 MG TAB PO (10:32)
[2021-04-23] MEDS: Droperidol 5 MG/2 ML VIAL 0.625 MG IVP ×2 (11:23→11:50)
[2021-04-23] MEDS: ACETAMINOPHEN 1,000 MG/100 ML BTL 400 MG IVPB (11:58)
--- NOTE | 2021-04-23 12:32 | W.ANESPOSTOP ---
Postoperative Evaluation Date, Time and Location Date Performed: 04/23/21 Time Performed: 12:33 Patient Location: Day Surgery Unit Vital Signs Most Recent Imported Vital Signs: Most Recent Vital Signs Temp Pulse Resp BP Pulse Ox 36.9 C 81 16 114/87 98 04/23/21 11:20 04/23/21 11:20 04/23/21 11:20 04/23/21 11:20 04/23/21 11:20 Pain Score Most Recent Pain Score: Most Recent Pain Score Pain Level [Abdomen] 6 04/23/21 11:35 Pain Level 5 04/23/21 11:20 Assessment Mental Status: Awake (Alert & Oriented to Patient Baseline) Airway and Respiratory Function: Patent airway with normal (patient baseline) respiratory exam Cardiovascular Function: Hemodynamically Stable Hydration Status: Adequately Hydrated Nausea & Vomiting: No Nausea or Vomiting Pain: Pain is tolerable per patient Peripheral Nerve Block: Patient did not receive a nerve block
[2021-04-28 00:14] LABS: Source: Right Kidney
== END 2021-04-23 12:40 | disposition home or self-care (01) ==
PROVIDERS: PCP Nurse Practitioner Family; Visit Provider Urology
PROC: (CPT 52356; principal; 2021-04-23 08:15)
DX: N20.0 Calculus of kidney (principal)
CPT/HCPCS: 52356; 81025; 96365; 74420; 82365; J0131; J0690; J1100; J1790; J1885; J2001; J2250; J2405; J2704; Q9967

== ENCOUNTER 2021-07-15 01:43 | Outpatient (CLI) | payer OTHER, SELFPAY ==
--- NOTE | 2021-07-15 06:30 | DI.MRI_ITS ---
Exam(s) MR BRAIN WO EXAM: MR BRAIN WO CLINICAL HISTORY: new onset SUNCT headaches,g44.059 TECHNIQUE: Multiplanar multisequence MRI of the brain was performed. COMPARISON: No exams were available for comparison FINDINGS: VENTRICLES AND EXTRA AXIAL SPACES: Normal in size and morphology for the patient's age. MIDLINE SHIFT: None. CEREBRAL PARENCHYMA: No focus of restricted diffusion to suggest acute infarct. No space-occupying le karol identified. HEMORRHAGE: None. BRAINSTEM/CEREBELLUM: Normal. VISUALIZED PARANASAL SINUSES/MASTOIDS:Clear. [place]: Normal flow void. [place]: Unremarkable. OTHER FINDINGS: None. VISUALIZED PARANASAL SINUSES/MASTOIDS: Mild mucosal thickening floor left maxillary sinus. Sinuses a nd mastoid air cells otherwise clear. IMPRESSION: Unremarkable MRI of the brain. DATA REPOSITORY:
== END 2021-07-15 02:03 ==
PROVIDERS: PCP Nurse Practitioner Family; Visit Provider Psychiatry & Neurology Neurology
DX: G44.059 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), not intractable (principal)
CPT/HCPCS: 70551

== ENCOUNTER 2021-07-30 07:49 | Emergency (ER) | payer OTHER, SELFPAY ==
[2021-07-30 07:54] VITALS: BP 141/82; PULSE 101; RESP 18; TEMP 36.8; O2SAT 98
--- NOTE | 2021-07-30 08:15 | DI.CT_ITS ---
Exam(s) CT ABDOMEN PELVIS W EXAM: CT ABDOMEN PELVIS W INDICATION: ABD pain RLQ. COMPARISON: CT CT ABDOMEN PELVIS W from 04/10/2021 TECHNIQUE: FINDINGS: CT examination of the abdomen and pelvis was performed with a bolus infusion of 100 cc of Omnipaque 3 50. Images obtained through the lung bases are unremarkable. The liver is unremarkable in appearance. Gallbladder and bile ducts are CT normal. Pancreas appears normal. Spleen is unremarkable in appearance. Adrenals appear normal. The kidneys are unremarkable with no evidence of hydronephrosis, nephrolithiasis, or renal mass.. Ur inary bladder unremarkable. Abdominal aorta is of normal diameter and no major vascular abnormality is seen. No abdominal wall hernia. No abdominal or pelvic adenopathy. ACCOUNT SUPPORT SPECIALIST structures appear intact. Appendix is normal. No evidence of diverticulitis or bowel obstruction. IMPRESSION: Negative CT examination of the abdomen and pelvis. RADIATION DOSE DELIVERED: 1,022.65mGy.cm Total DLP 1,022.65mGy.cm Total DLP !Error CTDIvol RADIATION OPTIMIZATION: All CT scans at this facility use at least one of these dose optimization te chniques: automated exposure control; mA and/or kV adjustment per patient size (includes targeted exa ms where dose is matched to clinical indication); or iterative reconstruction.
[2021-07-30 08:17] LABS: Bilirubin Negative (Negative); Blood Trace-intact (Negative); Clarity Sl Cloudy (Clear); Glucose Negative (Negative); Ketones Negative (Negative); Leukocyte Esterase Negative (Negative); Nitrite Negative (Negative); Specific Gravity >= 1.030 (1.005-1.025); Urobilinogen 0.2 EU/dL (Up TO 0.2); pH 6.5 (5-8)
--- NOTE | 2021-07-30 08:25 | ED.GENADUL_ITS ---
Discharge Plan Disposition Patient Disposition: HOME Condition: Stable Discharge Details Clinical Impression: Abdominal pain Primary Care Provider: Raiza Cruz ED Provider: Boo Quigley Home Meds and New Rx's Prescriptions: Continued medroxyprogesterone 400 mg/mL suspension 400 mg IM ONCE Qty: 1 0RF levalbuterol HCl [Xopenex] 0.63 mg/3 mL solution for nebulization 0.63 mg IH ONCE PRN0RF epinephrine [EpiPen 2-Morgan] 0.3 MG/0.3 ML auto-injector 0.3 mg IM ONCE Qty: 1 1RF Label Comments: 02/07/14 - PT HAS NOT HAD TO USE as needed Rx Instructions: use per allergy action plan with exposure to shellfish cetirizine [Zyrtec] 10 MG tablet,chewable 10 mg PO PRN PRNQty: 30 0RF albuterol sulfate [ProAir HFA] 8.5 GM HFA aerosol inhaler 2 puff Inhalation Q4H PRN Qty: 1 1RF Rx Instructions: Use 2 puffs 15 min prior to excercise and q4hr prn cough/wheeze ibuprofen 600 mg tablet 600 mg PO TID PRN (Reason: pain) 0RF Rx Instructions: take with food gabapentin 300 mg capsule 300 mg PO QHS Qty: 60 5RF Rx Instructions: Start 300mg at bedtime x 1-2 weeks, then increase to 600mg at bedtime if no change in pain acetaminophen [Acetaminophen Extra Strength] 500 mg Tablet 1,000 mg PO PRN PRN0RF ondansetron 4 mg Tablet,Disintegrating 4 mg PO Q8H PRN0RF No Action medroxyprogesterone [Depo-Provera] 150 mg/mL syringe 150 mg IM ONCE Qty: 1 0RF Discharge Instructions Instructions: Abdominal Pain (ED) Additional Instructions: As discussed please take MiraLAX once to twice daily over the next couple days and stay well-hydrated. You may also use prescribed medication for any abdominal cramping. If significant constipation occurs also use your laxative that you have at home as discussed. If not improving in the next week please follow-up with your primary care provider for reassessment If you have any significant worsening of your abdominal pain, fever chills persistent vomiting or further concerns feel free to return to the emergency department for reassessment Referrals: Raiza Cruz [Primary Care Provider] - 1 week (If not improving) Discharge Data Discharge Date/Time-TO BE ENTERED AT DEPARTURE: 07/30/21 11:05 Medical Decision Making Patient presenting to the emergency department with chief complaint of abdominal pain. Patient has significant history of kidney stones including infected kidney stones. Patient reports 2 days ago she started having periumbi lical/generalized abdominal pain but then pain has increased, felt more like cramping, and has somewhat migrated to right flank/lower quadrant. Patient states some associated nausea and chills but no vomiting. Patient denies all other symptoms. Physical exam is positive for tenderness to palpation of the right lower quadrant otherwise unremarkable exam. Plan to check general screening labs and CT imaging for chief working differential diagnosis of obstructing ureteral calculi versus appendicitis. Review of labs show that patient is not , unremarkable CBC unremarkable CMP including lipase, urine is concentrated with proteins and blood noted no signs of infection. Review of CT scan with radiologist shows no obstructing calculi, normal appendix, otherwise unremarkable CT. I did note moderate amount of stool in right-sided colon but no signs of obstruction. With patient reporting some intermittent constipation loose stools consider this could be source of patient's cramping. Did further discuss with patient and she states that cramping is higher so doubt pelvic source. Encourage patient to take [id number] MiraLAX and stay well-hydrated with potential consideration of laxative to see if this helps patient's symptoms. Close monitoring of symptoms along with return and follow-up precautions were discussed otherwise I feel that patient is safe and stable for outpatient management of symptoms. After discussion of diagnosis and plan of care patient has no further needs, questions, or concerns and states clear understanding to return to the emergency department for any worsening symptoms. Medical Records Medical records reviewed: Yes I reviewed the patient's medical records. Lab Data Lab results reviewed: Yes I reviewed the patient's lab results. Labs: Laboratory Tests Range/Units 07/30/21 07/30/21 07/30/21 08:09 09:15 09:15 WBC (4.4-10.8) 10^3/uL 7.20 RBC (3.93-5.22) 10^6/uL 4.82 Hgb (11.2-15.7) g/dL 14.3 Hct (36.0-46.0) % 43.3 MCV (80-95) fL 89.8 MCH (27.0-33.0) pg 29.7 MCHC (32.0-36.0) % 33.0 RDW (11.7-14.6) % 11.5 L Plt Count (130-400) 10^3/uL 234 MPV (8.0-11.0) fL 8.9 Immature Gran % 0.1 Neutrophils % 50.7 Lymphocytes % 40.6 Monocytes % 6.4 Eosinophils % 1.5 Basophils % 0.7 Nucleated RBC % (0.0-0.3) % 0.0 Absolute Neutrophils (1.2-6.7) 10^3/uL 3.65 Absolute Lymphocytes (1.2-3.4) 10^3/uL 2.92 Absolute Monocytes (0.1-0.8) 10^3/uL 0.46 Absolute Eosinophils (0.0-0.7) 10^3/uL 0.11 Absolute Basophils (0.0-0.2) 10^3/uL 0.05 Sodium (136-145) mmol/L 142 Potassium (3.5-5.1) mmol/L 4.2 Chloride (98-107) mmol/L 106 Carbon Dioxide (21.0-32.0) mmol/L 28.4 Anion Gap (3-11) mmol/L 7.6 BUN (7-18) mg/dL 6 L Creatinine (0.55-1.02) mg/dL 0.9 Estimated GFR/1.73 m2 (mL/min/1.73m2) >= 60.00 Glucose (74-106) mg/dL 100 Calcium (8.5-10.1) mg/dL 9.0 Magnesium (1.8-2.4) mg/dL 2.2 Total Bilirubin (0.2-1.0) mg/dL 0.3 AST (15-37) U/L 16 ALT (14-59) U/L 27 Alkaline Phosphatase (46-116) U/L 96 Total Protein (6.4-8.2) g/dL 7.3 Albumin (3.4-5.0) g/dL 3.9 Lipase (73-393) U/L 94 Urine Color (Yellow) Yellow Urine Clarity (Clear) Sl Cloudy Urine pH (5-8) 6.5 Ur Specific [place] (1.005-1.025) >= 1.030 H Urine Protein (Negative) mg/dL Trace H Urine Ketones (Negative) mg/dL Negative Urine Blood (Negative) Trace-intact H Urine Nitrite (Negative) Negative Urine Bilirubin (Negative) Negative Urine Urobilinogen (Up TO 0.2) EU/dL 0.2 Ur Leukocyte Esterase (Negative) Negative Urine RBC (0-2) HPF 5-10 H Urine WBC (0-5) HPF 0-2 Ur Epithelial Cells (Negative) HPF Many Urine Crystals (Negative) HPF Negative Urine Bacteria (Negative) HPF Few Urine Casts (Negative) LPF Negative Urine Mucus (Negative) Heavy Ur Culture Indicated? No/Sq. Contamination Urine Glucose (Negative) mg/dL Negative HPI General Mode of arrival: ambulatory . Date/Time Provider Initiated Documentation: 07/30/21 08:02 . Limitations to Documentation: no limitations . Information obtained by: patient, RN notes reviewed and old records reviewed . History of Present Illness 25 year old F presents to the emergency department with the chief complaint of Abdominal pain, described as moderate, Quality is described as aching and dull, and is localized to the abdomen. Patient flank (right). Patient started experiencing this day(s) (2) and it has been constant. improves with No relieving factors improve symptom(s), No exacerbating factors reported . Patient notes loss of appetite; denies cough. Patient did receive the following treatments prior to arrival, NSAID Related Data Home Medications Medication Instructions Recorded Confirmed epinephrine 0.3 mg/0.3 mL 0.3 mg IM ONCE #1 pack 11/26/13 07/31/21 injection, auto-injector (EpiPen 2-Morgan) cetirizine 10 mg chewable tablet 10 mg PO PRN PRN #30 tab-cap 09/10/14 07/31/21 (Zyrtec) albuterol sulfate 90 mcg/actuation 2 puff INHALATION Q4H PRN #1 12/16/14 07/31/21 aerosol inhaler (ProAir HFA) inhaler levalbuterol HCl 0.63 mg/3 mL 0.63 mg IH ONCE PRN 03/30/19 07/31/21 solution for nebulization (Xopenex) acetaminophen 500 mg tablet 1,000 mg PO PRN PRN 09/26/20 07/31/21 (Acetaminophen Extra Strength) ibuprofen 600 mg tablet 600 mg PO TID PRN 06/29/21 07/31/21 gabapentin 300 mg capsule 300 mg PO QHS #60 cap 07/01/21 07/31/21 ondansetron 4 mg disintegrating 4 mg PO Q8H PRN 07/30/21 07/31/21 tablet Previous Rx's Medication Instructions Recorded gabapentin 300 mg capsule 300 mg PO QHS #60 cap 07/01/21 Allergies Allergy/AdvReac Type Severity Reaction Status Date / Time paroxetine Allergy Mild rash Verified 07/31/21 15:48 Sulfa (Sulfonamide Allergy Mild RASH Verified 07/31/21 15:48 Antibiotics) shellfish derived Allergy hives Verified 07/31/21 15:48 General Stated Complaint: FlankPain JOLYNN: 3 Review of Systems Constitutional Constitutional: Reports chills, Denies fever(s) and Reports poor appetite Cardiovascular Cardiovascular: Denies chest pain and Denies dyspnea Respiratory Respiratory: Denies cough and Denies dyspnea Gastrointestinal Gastrointestinal: Reports as per HPI, Reports abdominal pain, Denies melena, Denies change in bowel habits, Reports constipation, Denies diarrhea, Reports loose stools, Reports nausea and Reports vomiting Genitourinary Genitourinary: Denies hematuria, Denies urinary incontinence, Denies urinary hesitancy and Denies urinary urgency Integumentary/Breasts Skin/Breast: Denies rash PFSH All Active Problems (Updated 07/30/21 @ 10:44 by Boo Quigley NP) Abdominal pain (Acute) Migraine headache without aura (Acute) 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 Pt will begin OCPs 11/2015. 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 Hematuria Herpes labialis 05/12 Intermittent asthma Loose stools Muscle tension pain Normal colonoscopy Personal history of urinary calculi Rectal bleeding Recurrent tonsillitis Dr. Palomino Renal colic on left side Tonsil stone Trigeminal neuralgia of left side of face Surgical History [place] teeth extracted Family History Mother Factor V Leiden mutation with 2 blood clots, one following Mental disorder PTSD, anxiety Headache disorder Asthma Father Personal history of malignant neoplasm skin cancer-not melanoma Asthma Sister Diabetes Asthma Social History Smoking/Tobacco Use Status: Never Smoking risk assessment performed?: Yes Alcohol Intake: current Alcohol Intake frequency: a few times a month Alcohol type: hard liquor Drug use: Never Substance use type: does not use Adopted: No Household members: spouse, children and other Details: Manisha Nguyen 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[facility], 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[employer] [facility] Seatbelt use: always Helmet use: Yes Drive intox or ride w/intox wagon driver: No Water heater temp set <120 deg: Yes Working smoke detector in home: Yes Fire extinguisher in home: Yes Carbon monox detector in home: Yes Firearms in home: Yes Firearms unloaded and locked: No Do you feel safe at home: Yes Do you feel safe in your relationship?: Yes Victim of physical abuse: No Victim of emotional abuse: No Victim of sexual abuse: No History History 2 Para 2 Hx # Term Pregnancies 2 Multiple births 0 Hx # Pregnancies 0 Ectopic pregnancies 0 AB induced 0 Hx Number of Living Children 2 AB spontaneous 0 Past Pregnancies Del. Date GA/Weeks # Outcome Route Wgt Sex Labor Lgth Anesthes ia Location Prov [facility] 07/12/18 40 No Successful vaginal 3912.234 g Male 2 hrs. 30 min. Betsy Navarro CNM Exam Const General: cooperative Orientation: alert, awake and oriented x3 Resp Effort & Inspection: normal respiratory effort and able to speak in complete sentences Auscultation: clear to auscultation bilaterally Cardio Rate: tachycardic Rhythm: regular rhythm Heart Sounds: S1 normal and S2 normal GI Palpation: soft, no hepatosplenomegaly, not firm, no guarding, no masses, no pulsatile masses, not rigid and tender in the RLQ Auscultation: normal bowel sounds Back/Spine/Pelvis Back: no CVA tenderness Neuro General: patient alert, patient awake, patient oriented x3, gait normal and moves all extremities Course Vital Signs Vital signs: Vital Signs Temperature 36.8 C 07/30/21 07:54 Pulse 101 H 07/30/21 07:54 Respiratory Rate 18 07/30/21 07:54 Blood Pressure 141/82 H 07/30/21 07:54 Pulse Oximetry 98 07/30/21 07:54 Temperature 36.8 C 07/30/21 07:54 Temperature Source Oral 07/30/21 07:54 Pulse 101 H 07/30/21 07:54 Respiratory Rate 18 07/30/21 07:54 Respiratory Effort Non-Labored 07/30/21 08:00 Blood Pressure 141/82 H 07/30/21 07:54 Blood Pressure Position Sitting 07/30/21 07:54 Pulse Oximetry 98 07/30/21 07:54 Oxygen Delivery Method Room Air 07/30/21 07:54 Oxygen Flow Rate 0 07/30/21 07:54 Pain Level 6 07/30/21 08:05 Lab/Test Results Lab/Test Results: Laboratory Tests Range/Units 07/30/21 08:09 Urine Color (Yellow) Yellow Urine Clarity (Clear) Sl Cloudy Urine pH (5-8) 6.5 Ur Specific [place] (1.005-1.025) >= 1.030 H Urine Protein (Negative) mg/dL Trace H Urine Ketones (Negative) mg/dL Negative Urine Blood (Negative) Trace-intact H Urine Nitrite (Negative) Negative Urine Bilirubin (Negative) Negative Urine Urobilinogen (Up TO 0.2) EU/dL 0.2 Ur Leukocyte Esterase (Negative) Negative Urine Glucose (Negative) mg/dL Negative POC- Test(urine) Negative PAWSS Have you Been Recently Intoxicated or Drunk Within the Last 30 days?: No Have you Ever Experienced Previous Episodes of Alcohol Withdrawal?: No Have you ever Experienced Withdrawal Seizures?: No Have you ever Experienced Delirium Tremens(DT)s?: No Have you ever undergone Alcohol Rehabilitation Treatment (i.e, inpt ot outpatient treatment programs)?: No Have you ever Experienced Blackouts?: No Have you ever Combined Alcohol with other Downers within the last 90 days?: No Have you ever Combined Alcohol with any other Substance of Abuse during the last 90 days?: No Positive Blood Alcohol level on Presentation? [PCS.BAL]: No Evidence of Increased Autonomic Activity (i.e. HR>120, tremor, sweating, agitation, nausea)?: No Result: 0
[2021-07-30 08:29] LABS: Bacteria Few HPF (Negative); C & S Indicated? No/Sq. Contamination; Casts Negative LPF (Negative); Crystals Negative HPF (Negative); Epithelial Cells Many HPF (Negative); Mucus Heavy (Negative); WBC 0-2 HPF (0-5)
[2021-07-30] MEDS: Normal Saline 1,000 ML 1000 ML IV (09:15)
[2021-07-30] MEDS: Ondansetron 4 MG/2 ML VIAL IVP (09:16)
[2021-07-30 09:21] LABS: Abs Immature Grans 0.01 10^3/uL (0.0-0.06); Absolute Basophil Count 0.05 10^3/uL (0.0-0.2); Absolute Eosinophil Count 0.11 10^3/uL (0.0-0.7); Absolute Lymphocyte Count 2.92 10^3/uL (1.2-3.4); Absolute Monocyte Count 0.46 10^3/uL (0.1-0.8); Absolute Neutrophil Count 3.65 10^3/uL (1.2-6.7); Basophils % 0.7; Eosinophils % 1.5; HCT 43.3 % (36.0-46.0); HGB 14.3 g/dL (11.2-15.7); Immature Grans % 0.1; Lymphocytes % 40.6; MCH 29.7 pg (27.0-33.0); MCV 89.8 fL (80-95); MPV 8.9 fL (8.0-11.0); Monocytes % 6.4; Neutrophils % 50.7; Platelet Count 234 10^3/uL (130-400); RBC 4.82 10^6/uL (3.93-5.22); RDW 11.5 % (11.7-14.6); RDW-SD 37.6 fL
[2021-07-30 09:35] LABS: ALT 27 U/L (14-59); AST 16 U/L (15-37); Albumin 3.9 g/dL (3.4-5.0); Alkaline Phosphatase 96 U/L (46-116); Anion Gap 7.6 mmol/L (3-11); BUN 6 mg/dL (7-18); Bilirubin, Total 0.3 mg/dL (0.2-1.0); CO2 28.4 mmol/L (21.0-32.0); CREATININE 0.9 mg/dL (0.55-1.02); Chloride 106 mmol/L (98-107); Glucose 100 mg/dL (74-106); Lipase 94 U/L (73-393); Magnesium 2.2 mg/dL (1.8-2.4); Potassium 4.2 mmol/L (3.5-5.1); Sodium 142 mmol/L (136-145); Total Protein 7.3 g/dL (6.4-8.2)
[2021-07-30] MEDS: Omnipaque 350 MG/ML 100 ML BTL IJ (10:22)
[2021-07-30 10:54] VITALS: BP 110/70; PULSE 98; RESP 16; TEMP 36.4; O2SAT 99
== END 2021-07-30 11:05 | disposition home or self-care (01) ==
PROVIDERS: Emergency Provider Nurse Practitioner Family; PCP Nurse Practitioner Family
DX: R10.9 Unspecified abdominal pain (principal)
CPT/HCPCS: 80053; 81025; 83690; 96361; 96374; 99284; 74177; 81003; 81015; 83735; 85025; J2405; J3490

== ENCOUNTER 2021-09-23 17:25 | Emergency (ER) | payer OTHER, SELFPAY ==
[2021-09-23 17:29] VITALS: BP 122/64; PULSE 104; RESP 16; TEMP 36.6; O2SAT 98
--- NOTE | 2021-09-23 17:47 | ED.GENADUL_ITS ---
Discharge Plan Disposition Patient Disposition: HOME Condition: Stable Discharge Details Chief Complaint: Orthopedic Clinical Impression: Arm contusion Primary Care Provider: Raiza Cruz ED Provider: Kingston Lane Home Meds and New Rx's Prescriptions: No Action medroxyprogesterone 400 mg/mL suspension 400 mg IM ONCE Qty: 1 0RF medroxyprogesterone [Depo-Provera] 150 mg/mL syringe 150 mg IM ONCE Qty: 1 0RF fluticasone propionate [Flonase Allergy Relief] 50 mcg/actuation spray,suspension 1 spray intranasal BID Rx Instructions: administer into each nostril [id number]-cigw-lutein Tablet 1 tab PO DAILY gabapentin 300 mg capsule 300 mg PO QHS Qty: 90 3RF epinephrine [EpiPen 2-Morgan] 0.3 MG/0.3 ML auto-injector 0.3 mg IM ONCE Qty: 1 Label Comments: 02/07/14 - PT HAS NOT HAD TO USE as needed Rx Instructions: use per allergy action plan with exposure to shellfish albuterol sulfate [ProAir HFA] 8.5 GM HFA aerosol inhaler 2 puff Inhalation Q4H PRN Qty: 1 Rx Instructions: Use 2 puffs 15 min prior to excercise and q4hr prn cough/wheeze ondansetron 4 mg tablet,disintegrating 4 mg PO Q8H PRN (Reason: nausea and vomiting) Qty: 15 0RF acetaminophen [Acetaminophen Extra Strength] 500 mg Tablet 1,000 mg PO PRN PRN Discharge Instructions Instructions: Contusion in Adults (ED) Additional Instructions: Ice and elevate your arm, use ibuprofen and/or acetaminophen as needed for pain/swelling. Please return to the emergency department if you develop any worsening symptoms such as severe swelling severe pain numbness tingling change in color of your arm or change in function or if your arm is not healing and is appropriate amount of time. Please follow-up with your primary care physician. Medical Decision Making 25-year-old female presented mechanical fall from bed onto floor of trailer, pain over proximal ulna, range of motion of fingers wrist elbow and shoulder int act, early bruising to painful site along proximal ulna, no crepitus or deformity, no other injuries. Likely bony contusion versus hairline fracture versus fracture versus unlikely dislocation. No evidence of compartment syndrome. Patient does not want any analgesia. Will obtain x-ray, home care instructions and likely return precautions pending x-ray. 19: 00 patient resting comfortably no acute distress. No evidence of fracture or dislocation. Likely soft tissue contusion or bony contusion. Home care instructions and return precautions given HPI General Date/Time Provider Initiated Documentation: 09/23/21 17:42 . HPI Narrative: 25-year-old female presents after mechanical fall slipped from her bed to the floor while getting up in the camper, fell on her right forearm, pain when she applies pressure to her forearm. No other injuries Related Data Home Medications Medication Instructions Recorded Confirmed epinephrine 0.3 mg/0.3 mL 0.3 mg IM ONCE ##1 11/26/13 09/23/21 injection, auto-injector (EpiPen 2-Morgan) albuterol sulfate 90 mcg/actuation 2 puff inhalation Q4H PRN ##1 12/16/14 09/23/21 aerosol inhaler (ProAir HFA) acetaminophen 500 mg tablet 1,000 mg PO PRN PRN 09/26/20 09/23/21 (Acetaminophen Extra Strength) fluticasone propionate 50 1 spray intranasal BID 08/11/21 09/23/21 mcg/actuation nasal spray,suspension (Flonase Allergy Relief) gabapentin 300 mg capsule 300 mg PO QHS #90 caps 08/11/21 09/23/21 wtettpko-wiqgckh-vyks-lutein tablet 1 tab PO DAILY 08/11/21 09/23/21 ondansetron 4 mg disintegrating 4 mg PO Q8H PRN nausea and 09/21/21 09/23/21 tablet vomiting #15 tabs Previous Rx's Medication Instructions Recorded gabapentin 300 mg capsule 300 mg PO QHS #90 caps 08/11/21 ondansetron 4 mg disintegrating 4 mg PO Q8H PRN nausea and 09/21/21 tablet vomiting #15 tabs Allergies Allergy/AdvReac Type Severity Reaction Status Date / Time paroxetine Allergy Mild rash Verified 09/23/21 17:35 Sulfa (Sulfonamide Allergy Mild RASH Verified 09/23/21 17:35 Antibiotics) shellfish derived Allergy hives Verified 09/23/21 17:35 General Stated Complaint: Orthopedic JOLYNN: 4 Review of Systems Narrative: Review of Systems Constitutional: negative Eyes: negative ENT: negative Cardiovascular: negative Respiratory: negative Gastrointestinal: negative : negative Musculoskeletal: Forearm pain Skin: negative Neurologic: negative Psych: negative PFSH All Active Problems (Updated 09/23/21 @ 19:[address] MD) Arm contusion (Acute) Migraine headache without aura (Acute) 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 Pt will begin OCPs 11/2015. 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 Hematuria Herpes labialis 05/12 Intermittent asthma Loose stools Muscle tension pain Normal colonoscopy Personal history of urinary calculi Rectal bleeding Recurrent tonsillitis Dr. Palomino Renal colic on left side Tonsil stone Trigeminal neuralgia of left side of face Surgical History [place] teeth extracted Family History Mother Factor V Leiden mutation with 2 blood clots, one following Mental disorder PTSD, anxiety Headache disorder Asthma Father Personal history of malignant neoplasm skin cancer-not melanoma Asthma Sister Diabetes Asthma Social History Smoking/Tobacco Use Status: Never Smoking risk assessment performed?: Yes Alcohol Intake: current Alcohol Intake frequency: a few times a month Alcohol type: hard liquor Drug use: Never Substance use type: does not use Adopted: No Household members: spouse, children and other Details: Manisha Nguyen 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[employer], 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 [employer] 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 use: always Helmet use: Yes Drive intox or ride w/intox carry all driver: No Water heater temp set <120 deg: Yes Working smoke detector in home: Yes Fire extinguisher in home: Yes Carbon monox detector in home: Yes Firearms in home: Yes Firearms unloaded and locked: No Do you feel safe at home: Yes Do you feel safe in your relationship?: Yes Victim of physical abuse: No Victim of emotional abuse: No Victim of sexual abuse: No History History 2 Para 2 Hx # Term Pregnancies 2 Multiple births 0 Hx # Pregnancies 0 Ectopic pregnancies 0 AB induced 0 Hx Number of Living Children 2 AB spontaneous 0 Past Pregnancies Del. Date GA/Weeks # Preg Succ Route Wgt Sex Labor Lgth Anesth esia Location Prov [facility] 07/12/18 40 No vaginal 3912.234 g Male 2 hrs. 30 min. Betsy Navarro CNM Exam Narrative Exam Narrative: Physical Examination General: alert, awake, cooperative, resting comfortably, no acute distress HEENT: normocephalic, atraumatic; PERRL, EOM intact, conjunctiva normal; no na seth discharge; moist mucous membranes, oral and pharyngeal mucosa normal, tolerating secretions Neck: supple, trachea midline; full ROM Chest: normal to inspection Respiratory: normal respiratory effort, speaking in full sentences, clear to auscultation, no wheezing, rales or rhonchi Cardiac: regular rate, regular rhythm, S1S2 intact, no murmurs rubs or gallops GI: abdomen soft, non-tender, non-distended; no palpable mass or hepatosplenomegaly Skin: no lesions, rashes or trauma appreciated Neuro: AAOx3, normal speech, moving all extremities Extremities: Pain to proximal forearm over the ulna, overlying early bruising, soft compartments, radial pulse intact, median radial and ulnar nerve distribution intact, flexion extension of fingers intact range of motion of wrist elbow and shoulder intact. Psych: Appropriate mood and affect Course Vital Signs Vital signs: Vital Signs Temperature 36.6 C 09/23/21 17:29 Pulse 104 H 09/23/21 17:29 Respiratory Rate 16 09/23/21 17:29 Blood Pressure 122/64 09/23/21 17:29 Pulse Oximetry 98 09/23/21 17:29 Temperature 36.6 C 09/23/21 17:29 Temperature Source Temporal Artery Scan 09/23/21 17:29 Pulse 104 H 09/23/21 17:29 Respiratory Rate 16 09/23/21 17:29 Respiratory Effort 09/23/21 17:34 Blood Pressure 122/64 09/23/21 17:29 Blood Pressure Position Sitting 09/23/21 17:29 Pulse Oximetry 98 09/23/21 17:29 Oxygen Delivery Method Room Air 09/23/21 17:29 Oxygen Flow Rate 0 09/23/21 17:29 Pain Level 4 09/23/21 17:29 PAWSS Have you Been Recently Intoxicated or Drunk Within the Last 30 days?: Yes Have you Ever Experienced Previous Episodes of Alcohol Withdrawal?: No Have you ever Experienced Withdrawal Seizures?: No Have you ever Experienced Delirium Tremens(DT)s?: No Have you ever undergone Alcohol Rehabilitation Treatment (i.e, inpt ot outpatient treatment programs)?: No Have you ever Experienced Blackouts?: No Have you ever Combined Alcohol with other Downers within the last 90 days?: No Have you ever Combined Alcohol with any other Substance of Abuse during the last 90 days?: No Positive Blood Alcohol level on Presentation? [PCS.BAL]: No Evidence of Increased Autonomic Activity (i.e. HR>120, tremor, sweating, agitation, nausea)?: No Result: 1
--- NOTE | 2021-09-23 17:53 | DI.RAD_ITS ---
Exam(s) XR FOREARM RT EXAM: XR FOREARM RT CLINICAL HISTORY: s/p fall. TECHNIQUE: 2D digital imaging was performed. Two views. COMPARISON: CR RIGHT FOREARM from 05/11/2010 FINDINGS: BONES: No acute fracture is present. No bony destructive lesion is seen. Visualized portion of elbow and wrist joints are unremarkable. SOFT TISSUE: Normal. IMPRESSION: Unremarkable radiographs of the left forearm. DATA REPOSITORY: RADIATION DOSE DELIVERED:
--- NOTE | 2021-09-23 18:52 | DI.VRAD_ITS ---
PROCEDURE INFORMATION: Exam: XR Right Forearm Exam date and time: 09/23/2021 5:50 PM Age: 25 years old Clinical indication: Injury or trauma; Fall; Blunt trauma (contusions or hematomas); Arm, lower; Right TECHNIQUE: Imaging protocol: Radiologic exam of the Right forearm. Views: 2 views. COMPARISON: No relevant prior studies available. FINDINGS: Bones/joints: Normal. Soft tissues: Normal. IMPRESSION: No acute findings. Dictated and Authenticated by: Cezar Gross MD. Ordering:SOLOMON Onofre MD
== END 2021-09-23 19:21 | disposition home or self-care (01) ==
PROVIDERS: Emergency Provider Emergency Medicine; PCP Nurse Practitioner Family
DX: S50.11XA Contusion of right forearm, initial encounter (principal); W01.0XXA Fall on same level from slipping, tripping and stumbling without subsequent striking against object, initial encounter
CPT/HCPCS: 99283; 73090

== ENCOUNTER 2021-12-30 18:53 | Emergency (ER) | payer OTHER, SELFPAY ==
[2021-12-30 19:04] VITALS: BP 137/94; PULSE 94; RESP 16; TEMP 37.3; O2SAT 98
--- NOTE | 2021-12-30 19:15 | DI.RAD_ITS ---
Exam(s) XR ABDOMEN FLAT PLATE EXAM: 2D digital imaging was performed. CLINICAL HISTORY: right flank pain, hx of stones. COMPARISON: No exams were available for comparison TECHNIQUE: Supine views of the abdomen was performed. Two images were obtained. FINDINGS: LUNG BASES: Not included. BOWEL GAS PATTERN: Nondistended. Moderate amount of stool in the right colon. FREE AIR: None. CALCIFICATIONS: No radiopaque calcifications. OSSEOUS STRUCTURES: Normal for age. OTHER FINDINGS: None. IMPRESSION: No evidence of an acute abdomen. DATA REPOSITORY: RADIATION DOSE DELIVERED:
--- NOTE | 2021-12-30 19:27 | ED.GENADUL_ITS ---
Discharge Plan Disposition Patient Disposition: HOME Condition: Good Discharge Details Clinical Impression: Renal colic on right side Primary Care Provider: Raiza Cruz ED Provider: Rian Parnell Home Meds and New Rx's Prescriptions: New tamsulosin [Flomax] 0.4 mg capsule 0.4 mg PO DAILY Qty: 7 0RF No Action medroxyprogesterone 400 mg/mL suspension 400 mg IM ONCE Qty: 1 0RF medroxyprogesterone [Depo-Provera] 150 mg/mL syringe 150 mg IM ONCE Qty: 1 0RF fluticasone propionate [Flonase Allergy Relief] 50 mcg/actuation spray,suspension 1 spray intranasal BID Rx Instructions: administer into each nostril [id number]-[id number]-lutein Tablet 1 tab PO DAILY gabapentin 300 mg capsule 300 mg PO QHS Qty: 90 3RF medroxyprogesterone [Depo-Provera] 150 mg/mL suspension 150 mg IM Q12W Qty: 1 3RF medroxyprogesterone [Depo-Provera] 150 mg/mL suspension 150 mg IM ONCE Qty: 1 0RF medroxyprogesterone [Depo-Provera] 150 mg/mL syringe 150 mg IM ONCE Qty: 1 0RF escitalopram oxalate [Lexapro] 5 mg tablet 5 mg PO DAILY epinephrine [EpiPen 2-Morgan] 0.3 MG/0.3 ML auto-injector 0.3 mg IM ONCE Qty: 1 Label Comments: 02/07/14 - PT HAS NOT HAD TO USE as needed Rx Instructions: use per allergy action plan with exposure to shellfish albuterol sulfate [ProAir HFA] 8.5 GM HFA aerosol inhaler 2 puff Inhalation Q4H PRN Qty: 1 Rx Instructions: Use 2 puffs 15 min prior to excercise and q4hr prn cough/wheeze ondansetron 4 mg tablet,disintegrating 4 mg PO Q8H PRN (Reason: nausea and vomiting) Qty: 15 0RF acetaminophen [Acetaminophen Extra Strength] 500 mg Tablet 1,000 mg PO PRN PRN Discharge Instructions Instructions: Renal Colic (ED) Additional Instructions: At this time I suspect that you do have a kidney stone on the right. Preregister shared decision making we have decided to hold off on a CAT scan for the time being with close follow-up with Dr. Abarca. Please take the pain medication Blanket as needed for breakthrough pain. In the meantime please take 800 mg of ibuprofen every 6 hours and 1000 mg of Tylenol every 6 hours. Keep in mind that the Blanket has 325 mg of Tylenol in it, and so do not take 2000 mg of Tylenol with the Blanket. Please take the Flomax as directed. Is been sent to your pharmacy on file. If you notice any worsening of your symptoms, or any new symptoms such as vomiting, diarrhea, fever, chills, shortness of breath, chest pain, numbness, weakness, or fainting , please return immediately to the emergency department for reevaluation. Please follow up with your primary care provider as soon as possible for reassessment and reevaluation. As always, it was a pleasure participating in your medical care today. Referrals: Zak Abarca MD [ [facility] STAFF PHYSICIAN] - Raiza Cruz [Primary Care Provider] - Medical Decision Making 26-year-old female with a past medical history of kidney stones, presents today for evaluation of right flank pain. Patient has a history of a 9 mm kidney stone and 5 mm kidney stone in the past. She states that starting yesterday after doing some exertional activity she developed mild right flank pain. This is continued throughout yesterday and today. It is not worsened and traveled slightly more inferiorly on the right flank. She states that this feels identical to her last kidney stone. She admits to some nausea but denies any diarrhea. She denies any dysuria or burning or blood. She denies any chest pain or shortness of breath. No fever or chills. No other complaints at this time. Initially lying back flat did help the pain, but this is no longer the case. No vaginal discharge or vaginal complaints. Physical exam demonstrates mild right-sided CVA tenderness. No pain or McBurney's point, negative Dumont sign. Symptoms inconsistent with appendicitis. Symptoms are most concerning for mild kidney stone. We will get labs, evaluate for infection, treat patient's pain. Patient is slightly hesitant for radiographic imaging at this time. We will hold off on CT scan but we will do an x-ray to start. We will monitor closely and reassess. 9:30 PM X-rays negative for acute process, however I still suspect that the patient's symptoms are consistent with kidney stone. Laboratory work-up shows no white count, bandemia or left shift. Electrolytes stable, renal function, urinalysis shows no significant WBCs, nitrates or leuk esterase. Symptoms inconsistent with infection. Symptoms inconsistent with pyelonephritis. Patient's pain is well controlled. We did rediscuss potential CT imaging now, or holding off for the time being. Through shared decision-making process the patient would like to hold off on CT imaging for the time being. We will put in referral with Dr. Abarca for tomorrow. We did attempt to call but unfortunately it is late at night. Patient is comfortable with plan. We will continue Flomax Tylenol Motrin and Blanket to go for home. Discussed red flags which to return. I have extensively reviewed the treatment plan and discharge instructions with the patient. I have addressed all patient concerns at this time. The patient was made aware of what symptoms to monitor for that would warrant a return to the emergency department. Discussed the plan with the patient, they demonstrate verbal understanding and agreement with our assessment and plan at this time. The documentation in this chart was dictated using [employer] dictation software. Please excuse any dictation errors. FINDINGS: Gastrointestinal tract: Nonspecific bowel gas pattern with mild stool and bowel gas scattered within the colon, general paucity of bowel gas in the small bowel. Intraperitoneal space: No discrete abnormal abdominal calcification. Organs: No organomegaly. Bones/joints: No acute osseous finding. Soft tissues: No focal abnormality. IMPRESSION: No acute findings. Thank you for allowing us to participate in the care of your patient. Dictated and Authenticated by: Diallo Miller MD 12/30/2021 9:08 PM Eastern Time ([place] & [place]) HPI General Date/Time Provider Initiated Documentation: 12/30/21 18:55 . HPI Narrative: 26-year-old female with a past medical history of kidney stones, presents today for evaluation of right flank pain. Patient has a history of a 9 mm kidney stone and 5 mm kidney stone in the past. She states that starting yesterday after doing some exertional activity she developed mild right flank pain. This is continued throughout yesterday and today. It is not worsened and traveled slightly more inferiorly on the right flank. She states that this feels identical to her last kidney stone. She admits to some nausea but denies any diarrhea. She denies any dysuria or burning or blood. She denies any chest pain or shortness of breath. No fever or chills. No other complaints at this time. Initially lying back flat did help the pain, but this is no longer the case. Related Data Home Medications Medication Instructions Recorded Confirmed epinephrine 0.3 mg/0.3 mL 0.3 mg IM ONCE ##1 11/26/13 10/23/21 injection, auto-injector (EpiPen 2-Morgan) albuterol sulfate 90 mcg/actuation 2 puff inhalation Q4H PRN ##1 12/16/14 10/23/21 aerosol inhaler (ProAir HFA) acetaminophen 500 mg tablet 1,000 mg PO PRN PRN 09/26/20 10/23/21 (Acetaminophen Extra Strength) fluticasone propionate 50 1 spray intranasal BID 08/11/21 10/23/21 mcg/actuation nasal spray,suspension (Flonase Allergy Relief) gabapentin 300 mg capsule 300 mg PO QHS #90 caps 08/11/21 10/23/21 swsyjgvt-vcolcqo-hhtt-lutein tablet 1 tab PO DAILY 08/11/21 10/23/21 ondansetron 4 mg disintegrating 4 mg PO Q8H PRN nausea and 09/21/21 10/23/21 tablet vomiting #15 tabs escitalopram oxalate 5 mg tablet 5 mg PO DAILY 10/23/21 10/23/21 (Lexapro) medroxyprogesterone 150 mg/mL 150 mg IM Q12W #1 mL 10/23/21 10/23/21 intramuscular suspension (Depo-Provera) tamsulosin 0.4 mg capsule (Flomax) 0.4 mg PO DAILY #7 caps 12/30/21 Previous Rx's Medication Instructions Recorded gabapentin 300 mg capsule 300 mg PO QHS #90 caps 08/11/21 ondansetron 4 mg disintegrating 4 mg PO Q8H PRN nausea and 09/21/21 tablet vomiting #15 tabs medroxyprogesterone 150 mg/mL 150 mg IM Q12W #1 mL 10/23/21 intramuscular suspension (Depo-Provera) tamsulosin 0.4 mg capsule (Flomax) 0.4 mg PO DAILY #7 caps 12/30/21 Allergies Allergy/AdvReac Type Severity Reaction Status Date / Time paroxetine Allergy Mild rash Verified 12/30/21 19:14 Sulfa (Sulfonamide Allergy Mild RASH Verified 12/30/21 19:14 Antibiotics) shellfish derived Allergy hives Verified 12/30/21 19:14 General Stated Complaint: FlankPain JOLYNN: 4 Review of Systems All systems reviewed & are unremarkable except as noted in HPI and below PFSH All Active Problems (Updated 12/30/21 @ 21:25 by Rian Parnell DO) Renal colic on right side (Acute) Migraine headache without aura (Acute) 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 Pt will begin OCPs 11/2015. 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 Hematuria Herpes labialis 05/12 Intermittent asthma Loose stools Muscle tension pain Normal colonoscopy Personal history of urinary calculi Rectal bleeding Recurrent tonsillitis Dr. Palomino Renal colic on left side Tonsil stone Trigeminal neuralgia of left side of face Surgical History [place] teeth extracted Family History Mother Factor V Leiden mutation with 2 blood clots, one following Mental disorder PTSD, anxiety Headache disorder Asthma Father Personal history of malignant neoplasm skin cancer-not melanoma Asthma Sister Diabetes Asthma Social History Smoking/Tobacco Use Status: Never Smoking risk assessment performed?: Yes Alcohol Intake: current Alcohol Intake frequency: a few times a month Alcohol type: hard liquor Drug use: Never Substance use type: does not use Adopted: No Household members: spouse, children and other Details: Feng- Katie Robb- Martha 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 [employer] Seatbelt use: always Helmet use: Yes Drive intox or ride w/intox short haul driver: No Water heater temp set <120 deg: Yes Working smoke detector in home: Yes Fire extinguisher in home: Yes Carbon monox detector in home: Yes Firearms in home: Yes Firearms unloaded and locked: No Do you feel safe at home: Yes Do you feel safe in your relationship?: Yes Victim of physical abuse: No Victim of emotional abuse: No Victim of sexual abuse: No History History 2 Para 2 Hx # Term Pregnancies 2 Multiple births 0 Hx # Pregnancies 0 Ectopic pregnancies 0 AB induced 0 Hx Number of Living Children 2 AB spontaneous 0 Past Pregnancies Del. Date GA/Weeks # Preg Succ Route Wgt Sex Labor Lgth Anesth esia Location [facility] 07/12/18 40 No vaginal 3912.234 g Male 2 hrs. 30 min. Betsy Navarro CNM Exam Narrative Exam Narrative: 1.Const: Well-nourished, Well-developed, appearing stated age 2.Eyes: PERRL, no conjunctival injection, and symmetrical lids. 3.ENT: Atraumatic external nose and ears. Moist MM. Neck: Symmetric, trachea midline, No thyromegaly. 4.CVS: +S1/S2, No murmurs or gallops. Peripheral pulses 2+ and equal in all extremities. Brisk capillary refill in all extremities. 5.RESP: Unlabored respiratory effort. Clear to auscultation bilaterally. No wheezes rales or rhonchi 6.GI: Soft, Nontender/Nondistended, No hepatosplenomegaly. No guarding or rebound. No pain at McBurney's point, negative Dumont sign. Mild right-sided CVA tenderness on percussion. 7.MSK: Normocephalic/Atraumatic, Extremities w/o deformity or ttp No cyanosis or clubbing, Normal movement of all extremities 8.Skin: Warm, Dry. No rashes or lesions. 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 Sensation grossly intact, no focal neurologic deficits. 10.Psych: (AAO) x3. Appropriate mood and affect Course Vital Signs Vital signs: Vital Signs Temperature 37.3 C 09/28/22 19:04 Pulse 94 H 12/30/21 19:04 Respiratory Rate 16 12/30/21 19:04 Blood Pressure 137/94 H 12/30/21 19:04 Pulse Oximetry 98 12/30/21 19:04 Temperature 37.3 C 12/30/21 19:04 Temperature Source Tympanic 12/30/21 19:04 Pulse 94 H 12/30/21 19:04 Respiratory Rate 16 12/30/21 19:04 Respiratory Effort 12/30/21 19:04 Blood Pressure 137/94 H 12/30/21 19:04 Blood Pressure Position Sitting 12/30/21 19:04 Pulse Oximetry 98 12/30/21 19:04 Oxygen Delivery Method Room Air 12/30/21 19:04 Oxygen Flow Rate 0 12/30/21 19:04 Pain Level 8 12/30/21 19:04
[2021-12-30 19:29] LABS: Bilirubin Negative (Negative); Blood Large (Negative); Clarity Sl Cloudy (Clear); Glucose Negative (Negative); Ketones 15 mg/dL (Negative); Leukocyte Esterase Negative (Negative); Nitrite Negative (Negative); Specific Gravity 1.025 (1.005-1.025); Urobilinogen 0.2 EU/dL (Up TO 0.2)
[2021-12-30 19:38] LABS: Epithelial Cells Many HPF (Negative); RBC >50 HPF (0-2)
[2021-12-30 19:39] LABS: Bacteria Few HPF (Negative); C & S Indicated? No/Sq. Contamination; Casts Negative LPF (Negative); Crystals Negative HPF (Negative); Mucus Negative (Negative); Other Cells Negative (Negative)
[2021-12-30 19:46] LABS: Abs Immature Grans 0.02 10^3/uL (0.0-0.06); Absolute Basophil Count 0.04 10^3/uL (0.0-0.2); Absolute Eosinophil Count 0.11 10^3/uL (0.0-0.7); Absolute Lymphocyte Count 2.06 10^3/uL (1.2-3.4); Absolute Monocyte Count 0.37 10^3/uL (0.1-0.8); Basophils % 0.6; Eosinophils % 1.5; HCT 38.8 % (36.0-46.0); HGB 13.5 g/dL (11.2-15.7); Immature Grans % 0.3; Lymphocytes % 28.6; MCH 29.7 pg (27.0-33.0); MCHC 34.8 % (32.0-36.0); MCV 85 fL (80-95); MPV 8.7 fL (8.0-11.0); Monocytes % 5.1; Neutrophils % 63.9; Platelet Count 246 10^3/uL (130-400); RBC 4.55 10^6/uL (3.93-5.22); RDW 11.6 % (11.7-14.6)
[2021-12-30] MEDS: Ketorolac 15 MG/ML VIAL IVP (19:47)
[2021-12-30] MEDS: MORPHine 4 MG/ML SYR IVP (19:48)
[2021-12-30] MEDS: Normal Saline 1,000 ML 1000 ML IV (19:49)
[2021-12-30 20:13] LABS: ALT 26 U/L (14-59); AST 19 U/L (15-37); Albumin 4.2 g/dL (3.4-5.0); Alkaline Phosphatase 87 U/L (46-116); Anion Gap 10.2 mmol/L (3-11); BUN 10 mg/dL (7-18); Bilirubin, Total 0.4 mg/dL (0.2-1.0); CO2 26.8 mmol/L (21.0-32.0); CREATININE 0.9 mg/dL (0.55-1.02); Calcium 9.4 mg/dL (8.5-10.1); Chloride 103 mmol/L (98-107); Estimated GFR 91.55 (mL/min/1.73m2); Glucose 105 mg/dL (74-106); Potassium 3.4 mmol/L (3.5-5.1); Sodium 140 mmol/L (136-145); Total Protein 7.7 g/dL (6.4-8.2)
--- NOTE | 2021-12-30 21:09 | DI.VRAD_ITS ---
PROCEDURE INFORMATION: Exam: XR Abdomen Exam date and time: 12/30/2021 8:01 PM Age: 26 years old Clinical indication: Other: Right flank pain, HX of stones TECHNIQUE: Imaging protocol: Radiologic exam of the abdomen. Views: Frontal supine view of the abdomen. 1 View. COMPARISON: CT ABDOMEN PELVIS W 07/30/2021 10:14 AM FINDINGS: Gastrointestinal tract: Nonspecific bowel gas pattern with mild stool and bowel gas scattered within the colon, general paucity of bowel gas in the small bowel. Intraperitoneal space: No discrete abnormal abdominal calcification. Organs: No organomegaly. Bones/joints: No acute osseous finding. Soft tissues: No focal abnormality. IMPRESSION: No acute findings. Dictated and Authenticated by: Diallo Miller MD. Ordering:DILAN Modi MD
[2021-12-30] MEDS: HYDROcodone 5/Acetaminophen 325 TAB PO (21:37)
[2021-12-30] MEDS: Tamsulosin 0.4 MG CAPCR PO (21:38)
== END 2021-12-30 21:58 | disposition home or self-care (01) ==
PROVIDERS: Emergency Provider Student in an Organized Health Care Education/Training Program; PCP Nurse Practitioner Family
DX: N23 Unspecified renal colic (principal)
CPT/HCPCS: 80053; 81025; 96361; 96374; 96375; 99284; 74018; 81003; 81015; 85025; J1885; J2270

== ENCOUNTER 2022-03-01 12:19 | Emergency (ER) | payer OTHER, SELFPAY ==
[2022-03-01 12:22] VITALS: BP 148/97; PULSE 106; RESP 16; TEMP 37; O2SAT 96
[2022-03-01 12:42] LABS: Abs Immature Grans 0.02 10^3/uL (0.0-0.06); Absolute Basophil Count 0.05 10^3/uL (0.0-0.2); Absolute Eosinophil Count 0.09 10^3/uL (0.0-0.7); Absolute Lymphocyte Count 2.87 10^3/uL (1.2-3.4); Absolute Monocyte Count 0.79 10^3/uL (0.1-0.8); Absolute Neutrophil Count 6.34 10^3/uL (1.2-6.7); Basophils % 0.5; Eosinophils % 0.9; HCT 46.1 % (36.0-46.0); HGB 16.1 g/dL (11.2-15.7); Immature Grans % 0.2; Lymphocytes % 28.2; MCH 29.2 pg (27.0-33.0); MCHC 34.9 % (32.0-36.0); MCV 84 fL (80-95); MPV 8.5 fL (8.0-11.0); Monocytes % 7.8; Neutrophils % 62.4; Platelet Count 259 10^3/uL (130-400); RBC 5.51 10^6/uL (3.93-5.22); RDW 11.4 % (11.7-14.6); RDW-SD 34.8 fL; WBC 10.16 10^3/uL (4.4-10.8)
[2022-03-01] MEDS: Normal Saline 1,000 ML 1000 ML IV (12:43)
--- NOTE | 2022-03-01 12:46 | W.ED.GENAD ---
Discharge Plan Disposition Patient Disposition: Home Condition: Stable Discharge Details Clinical Impression: Acute diarrhea Primary Care Provider: Raiza Cruz ED Provider: Boo Quigley Home Meds and New Rx's Prescriptions: Continued fluticasone propionate [Flonase Allergy Relief] 50 mcg/actuation spray,suspension 1 spray intranasal BID Rx Instructions: administer into each nostril irdswnaz-hiyzvks-xrbn-lutein Tablet 1 tab PO DAILY medroxyprogesterone [Depo-Provera] 150 mg/mL suspension 150 mg IM Q12W Qty: 1 3RF epinephrine [EpiPen 2-Morgan] 0.3 MG/0.3 ML auto-injector 0.3 mg IM ONCE Qty: 1 Label Comments: 02/07/14 - PT HAS NOT HAD TO USE as needed Rx Instructions: use per allergy action plan with exposure to shellfish albuterol sulfate [ProAir HFA] 8.5 GM HFA aerosol inhaler 2 puff Inhalation Q4H PRN Qty: 1 Rx Instructions: Use 2 puffs 15 min prior to excercise and q4hr prn cough/wheeze acetaminophen [Acetaminophen Extra Strength] 500 mg Tablet 1,000 mg PO PRN PRN Discharge Instructions Instructions: Acute Diarrhea (ED) Additional Instructions: As discussed please continue to stay well-hydrated you may slowly advance your diet as tolerated. If you develop any new or significant worsening of symptoms please return immediately to the emergency department. You have been given outpatient orders for stool studies and please drop this off as soon as you are able to provide a specimen so that we can and start treatment if needed. Referrals: Raiza Cruz [Primary Care Provider] - 1 week (If not improving) Discharge Data Discharge Date/Time-TO BE ENTERED AT DEPARTURE: 03/01/22 15:38 Medical Decision Making Patient presenting to the emergency department for chief complaint of diarrhea. Patient reports that this is been occurring for the past 5 days. She states some associated chills, nausea and mucus noted in stool but denies any blood, persistent abdominal pain urinary or respiratory symptoms. Patient denies any recent travel, drinking unfiltered water, denies antibiotic use or oral steroid use. Patient denies anybody else in the household that is also sick with similar symptoms. Physical exam is unremarkable and shows no abdominal tenderness, normal to hypoactive bowel sounds, no CVA tenderness. There was mild tachycardia. 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 difficile and will check labs for concern of dehydration or electrolyte abnormalities. Pending results we will give patient IV fluids. Reviewed patient's labs and CBC does show elevated RBC hemoglobin and hematocrit that are otherwise negative. I question if this is possibly secondary to hemoconcentration due to dehydration. CMP shows low potassium at 3 otherwise normal labs and normal LFTs. We will replete patient's hypokalemia with oral medication. Urine was reviewed and does show findings suggestive of dehydration but no obvious signs of infection or concern for that. Patient was unable to provide a stool specimen. She did attempt even to have p.o. intake of fluids and sugary drinks which have been causing episodes but this did not produce any bowel movement while in the emergency department. Due to this we will give patient outpatient orders for stool specimen studies. Discussed with patient empiric treatment of diarrhea versus continued monitoring. After full discussion of risk versus benefit patient stated that she would prefer to wait on empiric antibiotics until stool results have returned. Given that patient's labs are otherwise none worrisome and no emergent findings I do feel that we can hold off on antibiotics at this time. After discussion of diagnosis and plan of care patient has no further needs, questions, or concerns and states clear understanding to return to the emergency department for any worsening symptoms. This documentation was generated using britebill dictation system, please disregard any oddities of phrase or misspellings. Sign Out No HPI General Mode of arrival: ambulatory. Date/Time Provider Initiated Documentation: 03/01/22 12:34. Limitations to Documentation: no limitations. Information obtained by: patient and RN notes reviewed. History of Present Illness 26 year old F presents to the emergency department with the chief complaint of Diarrhea, described as moderate, Quality is described as other (Cramping), and is localized to the abdomen. Patient reports no radiation. Patient started experiencing this day(s) (5) and it has been constant and intermittent. No relieving factors improve symptom(s), No exacerbating factors reported . Patient did receive the following treatments prior to arrival, none Related Data Home Medications Medication Instructions Recorded Confirmed epinephrine 0.3 mg/0.3 mL 0.3 mg IM ONCE ##1 11/26/13 03/01/22 injection, auto-injector (EpiPen 2-Morgan) albuterol sulfate 90 mcg/actuation 2 puff inhalation Q4H PRN ##1 12/16/14 03/01/22 aerosol inhaler (ProAir HFA) acetaminophen 500 mg tablet 1,000 mg PO PRN PRN 09/26/20 03/01/22 (Acetaminophen Extra Strength) fluticasone propionate 50 1 spray intranasal BID 08/11/21 03/01/22 mcg/actuation nasal spray,suspension (Flonase Allergy Relief) xdupzdlq-tnkezzh-pryf-lutein tablet 1 tab PO DAILY 08/11/21 03/01/22 medroxyprogesterone 150 mg/mL 150 mg IM Q12W #1 mL 10/23/21 03/01/22 intramuscular suspension (Depo-Provera) Previous Rx's Medication Instructions Recorded medroxyprogesterone 150 mg/mL 150 mg IM Q12W #1 mL 10/23/21 intramuscular suspension (Depo-Provera) Allergies Allergy/AdvReac Type Severity Reaction Status Date / Time paroxetine Allergy Mild rash Verified 03/01/22 12:30 Sulfa (Sulfonamide Allergy Mild RASH Verified 03/01/22 12:30 Antibiotics) shellfish derived Allergy hives Verified 03/01/22 12:30 General Stated Complaint: Nausea/Vomit/Diar JOLYNN: 3 Review of Systems Constitutional Constitutional: Reports chills, Denies fever(s), Denies headache(s) and Reports poor appetite ENT Ears, Nose, Mouth, and Throat: Denies headache(s), Reports nasal congestion (Chronic allergies) and Denies sore throat Cardiovascular Cardiovascular: Denies chest pain, Denies syncope and Denies dyspnea Respiratory Respiratory: Denies cough and Denies dyspnea Gastrointestinal Gastrointestinal: Reports as per HPI, Denies melena, Denies hematochezia, Reports cramping, Reports diarrhea, Reports nausea and Denies vomiting Genitourinary Genitourinary: Reports system reviewed and no additional complaints, except as documented Musculoskeletal Musculoskeletal: Denies back pain Integumentary/Breasts Skin/Breast: Denies rash Neurologic Neurologic: Denies syncope and Denies headache(s) PFSH All Active Problems (Updated 03/03/22 @ 10:18 by Rose Owens NP) Encounter for screening for other viral diseases (Acute) Acute diarrhea (Acute) Migraine headache without aura (Acute) 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 Pt will begin OCPs 11/2015. 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 Hematuria Herpes labialis 05/12 Intermittent asthma Loose stools Muscle tension pain Normal colonoscopy Personal history of urinary calculi Rectal bleeding Recurrent tonsillitis Dr. Palomino Renal colic on left side Tonsil stone Trigeminal neuralgia of left side of face Surgical History [place] teeth extracted Family History Mother Factor V Leiden mutation with 2 blood clots, one following Mental disorder PTSD, anxiety Headache disorder Asthma Father Personal history of malignant neoplasm skin cancer-not melanoma Asthma Sister Diabetes Asthma Social History Smoking/Tobacco Use Status: Never Smoking risk assessment performed?: Yes Alcohol Intake: current Alcohol Intake frequency: a few times a month Alcohol type: hard liquor Drug use: Never Substance use type: does not use Adopted: No Household members: spouse, children and other Details: Manisha Nguyen 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[employer], 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[employer] [facility] Seatbelt use: always Helmet use: Yes Drive intox or ride w/intox spike driver: No Water heater temp set <120 deg: Yes Working smoke detector in home: Yes Fire extinguisher in home: Yes Carbon monox detector in home: Yes Firearms in home: Yes Firearms unloaded and locked: No Do you feel safe at home: Yes Do you feel safe in your relationship?: Yes Victim of physical abuse: No Victim of emotional abuse: No Victim of sexual abuse: No History History 2 Para 2 Hx # Term Pregnancies 2 Multiple births 0 Hx # Pregnancies 0 Ectopic pregnancies 0 AB induced 0 Hx Number of Living Children 2 AB spontaneous 0 Past Pregnancies Del. Date GA/Weeks # Preg Succ Route Wgt Sex Labor Lgth Anesthesia Location Prov [facility] 07/12/18 40 No vaginal 3912.234 g Male 2 hrs. 30 min. Betsy Navarro CNM Exam Const General: cooperative Orientation: alert, awake and oriented x3 Resp Effort & Inspection: normal respiratory effort and able to speak in complete sentences Auscultation: clear to auscultation bilaterally Cardio Rate: regular rate Rhythm: regular rhythm Heart Sounds: S1 normal and S2 normal GI Palpation: soft, no hepatosplenomegaly, not firm, no guarding, no masses, no pulsatile masses, not rigid, no splenomegaly and tender Auscultation: normal bowel sounds Back/Spine/Pelvis Back: no CVA tenderness Neuro General: patient alert, patient awake, patient oriented x3, gait normal and moves all extremities Course Vital Signs Vital signs: Vital Signs Temperature 37.0 C 03/01/22 12:22 Pulse 106 H 03/01/22 12:22 Respiratory Rate 16 03/01/22 12:22 Blood Pressure 148/97 H 03/01/22 12:22 Pulse Oximetry 96 03/01/22 12:22 Temperature 37.0 C 03/01/22 12:22 Temperature Source Oral 03/01/22 12:22 Pulse 106 H 03/01/22 12:22 Respiratory Rate 16 03/01/22 12:22 Respiratory Effort Non-Labored 03/01/22 12:28 Blood Pressure 148/97 H 03/01/22 12:22 Blood Pressure Position Sitting 03/01/22 12:22 Pulse Oximetry 96 03/01/22 12:22 Oxygen Delivery Method Room Air 03/01/22 12:22 Oxygen Flow Rate 0 03/01/22 12:22 Pain Level 0 03/01/22 12:22 Lab/Test Results Lab/Test Results: 03/01/22 12:43 Stool Lactoferrin Latex Agglutination - Pending Laboratory Tests Range/Units 03/01/22 12:37 WBC (4.4-10.8) 10^3/uL 10.16 RBC (3.93-5.22) 10^6/uL 5.51 H Hgb (11.2-15.7) g/dL 16.1 H Hct (36.0-46.0) % 46.1 H MCV (80-95) fL 84 MCH (27.0-33.0) pg 29.2 MCHC (32.0-36.0) % 34.9 RDW (11.7-14.6) % 11.4 L Plt Count (130-400) 10^3/uL 259 MPV (8.0-11.0) fL 8.5 Immature Gran % 0.2 Neutrophils % 62.4 Lymphocytes % 28.2 Monocytes % 7.8 Eosinophils % 0.9 Basophils % 0.5 Nucleated RBC % (0.0-0.3) % 0.0 Absolute Neutrophils (1.2-6.7) 10^3/uL 6.34 Absolute Lymphocytes (1.2-3.4) 10^3/uL 2.87 Absolute Monocytes (0.1-0.8) 10^3/uL 0.79 Absolute Eosinophils (0.0-0.7) 10^3/uL 0.09 Absolute Basophils (0.0-0.2) 10^3/uL 0.05
[2022-03-01 12:58] LABS: ALT 23 U/L (14-59); AST 16 U/L (15-37); Albumin 3.9 g/dL (3.4-5.0); Alkaline Phosphatase 99 U/L (46-116); Anion Gap 10.5 mmol/L (3-11); BUN 9 mg/dL (7-18); Bilirubin, Total 0.4 mg/dL (0.2-1.0); CO2 25.5 mmol/L (21.0-32.0); CREATININE 0.9 mg/dL (0.55-1.02); Calcium 9.2 mg/dL (8.5-10.1); Chloride 103 mmol/L (98-107); Estimated GFR 91.55 (mL/min/1.73m2); Glucose 105 mg/dL (74-106); Magnesium 1.8 mg/dL (1.8-2.4); Sodium 139 mmol/L (136-145); Total Protein 7.6 g/dL (6.4-8.2)
[2022-03-01 13:07] LABS: Bilirubin Small (Negative); Blood Trace-intact (Negative); Clarity Clear (Clear); Glucose Negative (Negative); Ketones 15 mg/dL (Negative); Leukocyte Esterase Negative (Negative); Nitrite Negative (Negative); Specific Gravity >= 1.030 (1.005-1.025); pH 6.5 (5-8)
[2022-03-01 13:26] LABS: RBC 0-2 HPF (0-2); WBC Negative HPF (0-5)
[2022-03-01 13:27] LABS: Bacteria Few HPF (Negative); C & S Indicated? No; Casts Negative LPF (Negative); Crystals Few Calcium Oxalate HPF (Negative); Epithelial Cells Rare HPF (Negative); Mucus Trace (Negative); Other Cells Negative (Negative)
[2022-03-01] MEDS: Potassium Chloride 10 MEQ CAPCR 40 MEQ PO (13:39)
[2022-03-01 15:08] VITALS: BP 109/69; PULSE 88; RESP 18; O2SAT 98
[2022-03-01 15:50] LABS: C Diff PCR Negative (Negative)
== END 2022-03-01 15:38 | disposition home or self-care (01) ==
PROVIDERS: Emergency Provider Nurse Practitioner Family; PCP Nurse Practitioner Family
DX: R19.7 Diarrhea, unspecified (principal); R68.83 Chills (without fever); R11.0 Nausea; R00.0 Tachycardia, unspecified; R71.8 Other abnormality of red blood cells; E87.6 Hypokalemia; J45.909 Unspecified asthma, uncomplicated; Z79.51 Long term (current) use of inhaled steroids
CPT/HCPCS: 36415; 80053; 81025; 87329; 87493; 87505; 96360; 96361; 99284; 81003; 81015; 83630; 83735; 85025; 87177

== ENCOUNTER 2022-03-02 16:27 | Outpatient (REF) | payer OTHER, SELFPAY ==
[2022-03-02 22:12] LABS: Campylobacter PCR Negative (Negative); Salmonella PCR Negative (Negative); Shiga Toxin PCR Negative (Negative); Shigella/Enteroinvasive Ecoli Negative (Negative)
[2022-03-03 10:58] LABS: Source Nasal/Nares
[2022-03-03 11:38] LABS: COVID-19 PCR Negative (Negative)
== END 2022-03-02 16:28 | disposition home or self-care (01) ==
LOC: LBN 16:27
PROVIDERS: Nurse Practitioner Family; PCP Nurse Practitioner Family; Visit Provider Nurse Practitioner Family
DX: R19.7 Diarrhea, unspecified (principal); R19.5 Other fecal abnormalities; R11.0 Nausea
CPT/HCPCS: 87329; 87505; 87635; 82272; 83630

== ENCOUNTER → 2022-10-14 11:18 | Outpatient (BNVA) | payer OTHER, SELFPAY | PROVIDERS: PCP Nurse Practitioner Family; Visit Provider Urology | DX: R10.9 Unspecified abdominal pain (principal); Z87.442 Personal history of urinary calculi | CPT/HCPCS: 99213 ==

== ENCOUNTER → 2022-10-19 07:40 | Outpatient (BNVA) | payer OTHER, SELFPAY | PROVIDERS: PCP Nurse Practitioner Family; Referring Provider Nurse Practitioner Family; Visit Provider Urology | DX: R10.9 Unspecified abdominal pain (principal); Z87.442 Personal history of urinary calculi | CPT/HCPCS: 99212 ==

== ENCOUNTER 2022-12-22 11:05 | Outpatient (REF) | payer OTHER, SELFPAY | END 2022-12-22 11:06 | disposition home or self-care (01) | LOC: LBN 11:05 | PROVIDERS: PCP Nurse Practitioner Family; Visit Provider Nurse Practitioner Family | DX: J02.9 Acute pharyngitis, unspecified (principal) | CPT/HCPCS: 87070 ==

== ENCOUNTER 2022-12-23 13:28 | Emergency (ER) | payer OTHER, SELFPAY ==
[2022-12-23 13:32] VITALS: BP 114/99; PULSE 100; RESP 20; TEMP 36.8; O2SAT 99
--- NOTE | 2022-12-23 14:55 | ED.GENADUL_ITS ---
Discharge Plan Disposition Patient Disposition: Left Without Being Seen Discharge Details Primary Care Provider: Raiza Cruz ED Provider: Cris Moran Discharge Data Discharge Date/Time-TO BE ENTERED AT DEPARTURE: 12/23/22 15:17 Discharge Physician: Cris Moran HPI General Date/Time Provider Initiated Documentation: 12/23/22 13:37 . HPI Narrative: The patient left prior to my evaluation. Related Data Home Medications Medication Instructions Recorded Confirmed epinephrine 0.3 mg/0.3 mL 0.3 mg IM ONCE ##1 11/26/13 12/09/22 injection, auto-injector (EpiPen 2-Morgan) albuterol sulfate 90 mcg/actuation 2 puff inhalation Q4H PRN ##1 12/16/14 12/09/22 aerosol inhaler (ProAir HFA) acetaminophen 500 mg tablet 1,000 mg PO PRN PRN 09/26/20 12/09/22 (Acetaminophen Extra Strength) fluticasone propionate 50 1 spray intranasal BID 08/11/21 12/09/22 mcg/actuation nasal spray,suspension (Flonase Allergy Relief) medroxyprogesterone 150 mg/mL 150 mg IM [id number] #1 mL 09/20/22 12/09/22 intramuscular syringe (Depo-Provera) ondansetron HCl 4 mg tablet 4 mg PO Q8H PRN nausea and 10/14/22 12/09/22 vomiting #12 tabs escitalopram oxalate 10 mg tablet 10 mg PO DAILY 12/09/22 12/09/22 (Lexapro) amoxicillin 500 mg capsule 500 mg PO BID #20 caps 12/22/22 12/22/22 Previous Rx's Medication Instructions Recorded medroxyprogesterone 150 mg/mL 150 mg IM [id number] #1 mL 09/20/22 intramuscular syringe (Depo-Provera) ondansetron HCl 4 mg tablet 4 mg PO Q8H PRN nausea and 10/14/22 vomiting #12 tabs amoxicillin 500 mg capsule 500 mg PO BID #20 caps 12/22/22 Allergies Allergy/AdvReac Type Severity Reaction Status Date / Time paroxetine Allergy Mild rash Verified 12/23/22 13:37 Sulfa (Sulfonamide Allergy Mild RASH Verified 12/23/22 13:37 Antibiotics) shellfish derived Allergy hives Verified 12/23/22 13:37 General Stated Complaint: HeadInjury JOLYNN: 4 PFSH All Active Problems Depo-Provera contraceptive status (Acute) Exercise-induced asthma (Acute 12/16/14) Precordial catch syndrome (Acute 05/29/14) Migraine (Chronic) Medical History Abdominal cramps 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 Pt will begin OCPs 11/2015. 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 Flank pain Hematuria Herpes labialis 05/12 Intermittent asthma Loose stools Migraine headache without aura Muscle tension pain Nephrolithiasis Normal colonoscopy Personal history of urinary calculi Rectal bleeding Recurrent tonsillitis Dr. 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) Tonsil stone Trigeminal neuralgia of left side of face Surgical History [place] teeth extracted Family History Mother Factor V Leiden mutation with 2 blood clots, one following Mental disorder PTSD, anxiety Headache disorder Asthma Father Personal history of malignant neoplasm skin cancer-not melanoma Asthma Sister Diabetes Asthma Social History Smoking/Tobacco Use Status: Never Smoking risk assessment performed?: Yes Alcohol Intake: current Alcohol Intake frequency: a few times a month Alcohol type: hard liquor Drug use: Never Substance use type: does not use Adopted: No Household members: spouse, children and other Details: Manisha Nguyen 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[employer], 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 [employer] Seatbelt use: always Helmet use: Yes Drive intox or ride w/intox 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 Date GA/Weeks # Preg Succ Route Wgt Sex Labor Lgth Anesth esia Location [facility] 07/12/18 40 No vaginal 3912.234 g Male 2 hrs. 30 min. Betsy Navarro CNM Course Vital Signs Vital signs: Vital Signs Temperature 36.8 C 12/23/22 13:32 Pulse 100 H 12/23/22 13:32 Respiratory Rate 20 12/23/22 13:32 Blood Pressure 114/99 H 12/23/22 13:32 Pulse Oximetry 99 12/23/22 13:32 Temperature 36.8 C 12/23/22 13:32 Temperature Source Oral 12/23/22 13:32 Pulse 100 H 12/23/22 13:32 Respiratory Rate 20 12/23/22 13:32 Blood Pressure 114/99 H 12/23/22 13:32 Blood Pressure Position Supine 12/23/22 13:32 Pulse Oximetry 99 12/23/22 13:32 Oxygen Delivery Method Room Air 12/23/22 13:32 Oxygen Flow Rate 0 12/23/22 13:32
== END 2022-12-23 15:17 | disposition left against medical advice (07) ==
PROVIDERS: Emergency Provider Emergency Medicine Emergency Medical Services; PCP Nurse Practitioner Family
DX: Z53.21 Procedure and treatment not carried out due to patient leaving prior to being seen by health care provider (principal)

== ENCOUNTER 2023-05-18 18:53 | Outpatient (REF) | payer OTHER, SELFPAY ==
[2023-05-18 20:18] LABS: FREE T4 0.92 ng/dL (0.76-1.46)
== END 2023-05-18 18:54 | disposition home or self-care (01) ==
LOC: NCHCN 18:53
PROVIDERS: PCP Nurse Practitioner Family; Referring Provider Nurse Practitioner Family; Visit Provider Nurse Practitioner Family
DX: Z00.00 Encounter for general adult medical examination without abnormal findings (principal); Z13.29 Encounter for screening for other suspected endocrine disorder
CPT/HCPCS: 84439; 84443

== ENCOUNTER 2023-05-25 13:58 | Outpatient (CLI) | payer OTHER, SELFPAY ==
[2023-05-26 09:27] LABS: Thyroperoxidase Antibody <28 U/mL (<=60)
== END 2023-05-25 13:59 | disposition home or self-care (01) ==
LOC: LBO 14:01
PROVIDERS: PCP Nurse Practitioner Family; Visit Provider Nurse Practitioner Family
DX: Z00.00 Encounter for general adult medical examination without abnormal findings (principal); F41.8 Other specified anxiety disorders
CPT/HCPCS: 36415; 86376

== ENCOUNTER 2023-07-22 13:55 | Emergency (ER) | payer OTHER, SELFPAY ==
[2023-07-22 14:01] VITALS: BP 132/85; PULSE 116; RESP 16; TEMP 36.8; O2SAT 95
--- NOTE | 2023-07-22 14:22 | ED.GENADUL_ITS ---
Discharge Plan Disposition Patient Disposition: Home Condition: Stable Discharge Details Clinical Impression: Left flank pain Primary Care Provider: Raiza Cruz ED Provider: Rian Whitney Home Meds and New Rx's Prescriptions: Continued fluticasone propionate [Flonase Allergy Relief] 50 mcg/actuation spray,suspension 1 spray intranasal BID Rx Instructions: administer into each nostril ondansetron HCl 4 mg tablet 4 mg PO Q8H PRN (Reason: nausea and vomiting) Qty: 12 2RF medroxyprogesterone [Depo-Provera] 150 mg/mL syringe 150 mg IM [id number] Qty: 1 4RF escitalopram oxalate [Lexapro] 10 mg tablet 10 mg PO DAILY epinephrine [EpiPen 2-Morgan] 0.3 MG/0.3 ML auto-injector 0.3 mg IM ONCE Qty: 1 Patient Comments: 02/07/14 - PT HAS NOT HAD TO USE as needed Rx Instructions: use per allergy action plan with exposure to shellfish albuterol sulfate [ProAir HFA] 8.5 GM HFA aerosol inhaler 2 puff Inhalation Q4H PRN Qty: 1 Rx Instructions: Use 2 puffs 15 min prior to excercise and q4hr prn cough/wheeze acetaminophen [Acetaminophen Extra Strength] 500 mg Tablet 1,000 mg PO PRN PRN Discharge Instructions Instructions: Flank Pain (ED) Additional Instructions: You were seen in the emergency department for your left flank pain and urinary frequency last night, it is likely that you passed a kidney stone, there is no sign of infection on your urine and your laboratory workup is unremarkable. Please aggressively hydrate yourself to try to flush your system but there is no need to start antibiotics at this time. Please watch for yourself closely for any signs of kidney infection or fever or developing UTI. Please take regular doses of [id number] analgesics. Please use therapeutic dosing of Tylenol (acetamenophen) & Advil (ibuprofen) in an alternating fashion as follows: Take 1000mg of Tylenol every 6 hours without missing doses- that is 4 times per day. [place] in between the Tylenol dosings, take 400-600mg of Advil also on a 6 hour schedule, that is also 4 times per day. The daily maximum dosing of Tylenol is 4000mg, and the daily maximum dosing of Advil is 2400mg. This is safe to do for weeks. Please note that some common cold medications & prescription pain medications may contain acetamenophen and you need to read OTC drug labels and factor that in to maximum daily dosings. Referrals: Raiza Cruz [Primary Care Provider] - Discharge Data Discharge Date/Time-TO BE ENTERED AT DEPARTURE: 07/22/23 15:27 HPI General Date/Time Provider Initiated Documentation: 07/22/23 13:57 . HPI Narrative: 27 year-old female presents to ED today by POV/ambulating with a chief complaint of increased urinary frequency and flank pain last night- feels similar to a prior kidney stone in remote past that required lithotripsy and stenting per Dr. Abarca of [facility]. Quality described as L>R flank pain, radiating to lower abdomen, urinating every hour last night with pain and nausea due to pain, no radiation to dark urine, fever, vomiting, new sexual partners, vaginal bleeding/discharge. Severity is described as 8/10. Palliating factors include took some OTC analgeics without relief. Provoking factors include nothing specific. Patient not anticoagulated. Related Data Home Medications Medication Instructions Recorded Confirmed epinephrine 0.3 mg/0.3 mL 0.3 mg IM ONCE ##1 11/26/13 07/22/23 injection, auto-injector (EpiPen 2-Morgan) albuterol sulfate 90 mcg/actuation 2 puff inhalation Q4H PRN ##1 12/16/14 07/22/23 aerosol inhaler (ProAir HFA) acetaminophen 500 mg tablet 1,000 mg PO PRN PRN 09/26/20 07/22/23 (Acetaminophen Extra Strength) fluticasone propionate 50 1 spray intranasal BID 08/11/21 07/22/23 mcg/actuation nasal spray,suspension (Flonase Allergy Relief) ondansetron HCl 4 mg tablet 4 mg PO Q8H PRN nausea and 10/14/22 07/22/23 vomiting #12 tabs escitalopram oxalate 10 mg tablet 10 mg PO DAILY 12/09/22 07/22/23 (Lexapro) medroxyprogesterone 150 mg/mL 150 mg IM [id number] #1 mL 03/02/23 07/22/23 intramuscular syringe (Depo-Provera) Previous Rx's Medication Instructions Recorded ondansetron HCl 4 mg tablet 4 mg PO Q8H PRN nausea and 10/14/22 vomiting #12 tabs medroxyprogesterone 150 mg/mL 150 mg IM [id number] #1 mL 03/02/23 intramuscular syringe (Depo-Provera) Allergies Allergy/AdvReac Type Severity Reaction Status Date / Time paroxetine Allergy Mild rash Verified 07/22/23 14:08 Sulfa (Sulfonamide Allergy Mild RASH Verified 07/22/23 14:08 Antibiotics) shellfish derived Allergy hives Verified 07/22/23 14:08 General Stated Complaint: FlankPain JOLYNN: 3 Review of Systems All systems reviewed & are unremarkable except as noted in HPI and below Exam Narrative Exam Narrative: GENERAL APPEARANCE: Well-nourished, non-toxic, awake and alert, atraumatic, no acute distress. SKIN: Warm, pink, dry, intact, without rashes/lesions/ulcerations. HEAD: Normocephalic, atraumatic, normal hair distribution for gender/age. EYES: Normal conjunctiva, no exudates on lids/lashes. ENT: Nares patent, no circumoral cyanosis, no facial swelling, bilateral TMs clear, no mastoid tenderness NECK: Supple, trachea midline, painless cervical ROM. LUNGS/CHEST: Lungs CTA bilaterally- no rhonchi/rales/wheezes diffusely, non- labored respirations, normal A/P diameter, symmetrical expansion, no chest wall deformity HEART (CV/PV): Regular rate and rhythm without murmur, no peripheral edema, no JVD. ABDOMEN: Soft, non-distended, no guarding, L CVA tenderness to percussion, no focal abdominal tenderness or peritoneal signs. MSK: Normal ROM, no swelling/deformity to bilateral UEs or LEs, moving all extremities without weakness, no cyanosis, spine midline without tenderness, normal curvature. NEURO: Mental Status AAOx4 - alert to person, place, time, events No facial droop, no forehead involvement. Motor: No focal weakness - strength 5/5 in bilateral UEs and L Es, proximal and distal, symmetric. Sensory: sensation intact to light touch globally. Gait normal: patient ambulated without ataxia into ED room. PSYCH: euthymic, cooperative, pleasant, appropriate speech Course Vital Signs Vital signs: Vital Signs Temperature 36.8 C 07/22/23 14:01 Pulse 116 H 07/22/23 14:01 Respiratory Rate 16 07/22/23 14:01 Blood Pressure 132/85 07/22/23 14:01 Pulse Oximetry 95 07/22/23 14:01 Temperature 36.8 C 07/22/23 14:01 Temperature Source Tympanic 07/22/23 14:01 Pulse 116 H 07/22/23 14:01 Respiratory Rate 16 07/22/23 14:01 Respiratory Effort Normal 07/22/23 14:04 Blood Pressure 132/85 07/22/23 14:01 Pulse Oximetry 95 07/22/23 14:01 Medical Decision Making This dictation utilizes [id number] dictation software and may contain unedited grammatical errors. 27 y/o F presents to ED today with a chief complaint of L flank pain, urinary frequency last night with dysuria, denies fever, denies vaginal bleeding/discharge, denies dark urine, mild nausea due to pain. Patient has had a 9mm kidney stone seen by [facility] with lithotripsy and stenting in the past, feels similar. Patients' medical history: Migraine, history of renal stones, exercise-induced asthma, anxiety, Depo-Provera contraceptive status. Family and social history: Family history of factor V Leiden. Pertinent exam findings / vital signs include L CVA tenderness, nontoxic vitals, nonperitoneal abdomen, benign cardiopulmonary status. Differential / pathologies of concern include renal colic, ureteral stone, UTI, , colitis. Diagnostic studies of: -CBC, CMP, POC Urine , Urinalysis, Lactate, Lipase, CT Renal wo Contrast. -CBC without leukocytosis -CMP shows mild elev SCr 1.1, nonspecific -POC Urine preg negative -UA shows no proteinuria no hematuria, no UTI -Lactate neg -Lipase wnl -CT renal shows tiny nonobstructing stone, no hydronephrosis Interventions of: -IV Fluids. ED Course/Assessment/Plan: Counseled the patient on a possible passed renal stone due to her symptoms of urinary frequency last night and her history with a current tiny nonobstructing stone, Provided reassurance that her urine showed no sign of infection, hematuria or proteinuria which are common with kidney stones. Discussed her blood work which was not suspicious for any sepsis or severe infection, she is afebrile and I do not suspect pyelonephritis. I counseled her on careful observation at home, taking wssy-roi-etxbwru analgesics and aggressive hydration and to return for any worsening-especially with fever. Findings not consistent with pyelonephritis, UTI, obstructing renal stone, sepsis, biliary pathology, perforated viscus. Disposition of left flank pain. Patient verbalized understanding of the plan and return to ED criteria and engaged in shared decision making. Medical Records Medical records reviewed: Yes I reviewed the patient's medical records. Imaging Data Radiologic Study: Attestation: I personally reviewed and interpreted this imaging study as follows: Imaging: CT Scan Radiologist's impression: EXAM: CT RENAL COLIC WO CLINICAL HISTORY: L flank pain, increased urin freq. TECHNIQUE: Imaging Protocol: Axial computed tomography images with coronal and sagittal reformatted images were created and reviewed. CONTRAST MATERIAL: Noncontrast COMPARISON: CT CT ABDOMEN PELVIS WO from 10/15/2022 FINDINGS: ABDOMEN: Lung Bases: Normal where visualized. Liver: Normal attenuation. No measurable mass. Gallbladder and biliary tract: No radiodense calculus or dilation. Pancreas: Normal density, no calcifications or inflammatory process. Spleen: Normal. Kidneys: Normal size, contour and axis. Tiny stone noted at the lower pole of the right kidney. No masses seen. Evaluation for pyelonephritis is limited without IV contrast. No perinephric stranding. Adrenal glands: No masses seen. Abdominal Aorta: Abdominal portion non-dilated. Soft tissues: Unremarkable. PELVIS: Bladder: Mildly distended, no gross wall thickening. No evidence of stones.No visible mass. Bowel: No obstruction or bowel wall thickening. Reproductive: Unremarkable. Peritoneal cavity: No ascites, collection or mesenteric inflammatory response. Bones: Unremarkable for age.. IMPRESSION: Tiny nonobstructing stone in the lower pole of the right kidney left kidney and bladder are unremarkable.. Lab Data Lab results reviewed: Yes I reviewed the patient's lab results. Labs: Laboratory Tests Range/Units 07/22/23 07/22/23 14:07 14:20 WBC (4.4-10.8) 10^3/uL 9.52 RBC (3.93-5.22) 10^6/uL 5.26 H Hgb (11.2-15.7) g/dL 15.8 H Hct (36.0-46.0) % 46.4 H MCV (80-95) fL 88 MCH (27.0-33.0) pg 30.0 MCHC (32.0-36.0) % 34.1 RDW (11.7-14.6) % 11.5 L Plt Count (130-400) 10^3/uL 241 MPV (8.0-11.0) fL 8.6 Immature Gran % 0.2 Neutrophils % 54.8 Lymphocytes % 34.8 Monocytes % 8.7 Eosinophils % 0.8 Basophils % 0.7 Nucleated RBC % (0.0-0.3) % 0.0 Absolute Neutrophils (1.2-6.7) 10^3/uL 5.21 Absolute Lymphocytes (1.2-3.4) 10^3/uL 3.31 Absolute Monocytes (0.1-0.8) 10^3/uL 0.83 H Absolute Eosinophils (0.0-0.7) 10^3/uL 0.08 Absolute Basophils (0.0-0.2) 10^3/uL 0.07 VBG Lactate (0.6-1.4) mmol/L 1.5 H Sodium (136-145) mmol/L 144 Potassium (3.5-5.1) mmol/L 3.7 Chloride (98-107) mmol/L 106 Carbon Dioxide (21.0-32.0) mmol/L 27.2 Anion Gap (3-11) mmol/L 10.8 BUN (7-18) mg/dL 14 Creatinine (0.55-1.02) mg/dL 1.1 H Est GFR (CKD-EPI 2020) (mL/min/1.73m2) 71.51 Glucose (74-106) mg/dL 95 Calcium (8.5-10.1) mg/dL 9.2 Total Bilirubin (0.2-1.0) mg/dL 0.6 AST (15-37) U/L 22 ALT (14-59) U/L 27 Alkaline Phosphatase (46-116) U/L 92 Total Protein (6.4-8.2) g/dL 8.0 Albumin (3.4-5.0) g/dL 4.1 Lipase (16-77) U/L 40 Urine Color (Yellow) Yellow Urine Clarity (Clear) Clear Urine pH (5-8) 5.5 Ur Specific Colt (1.005-1.025) 1.015 Urine Protein (Neg-Trace) mg/dL Negative Urine Ketones (Negative) mg/dL Negative Urine Blood (Negative) Negative Urine Nitrite (Negative) Negative Urine Bilirubin (Negative) Negative Urine Urobilinogen (Up to 0.2) mg/dL 0.2 Ur Leukocyte Esterase (Negative) Negative Urine Glucose (Negative) mg/dL Negative Quality:SDOH Health Related Social Needs: No Data to Display PFSH All Active Problems (Updated 07/22/23 @ 15:20 by NASIM Iyer) Left flank pain (Acute) Vulvar lesion (Acute) Lump of right breast (Acute) Mastalgia (Acute) Anxiety disorder (Acute) Women's annual routine gynecological examination (Acute) Depo-Provera contraceptive status (Acute) Exercise-induced asthma (Acute 12/16/14) Precordial catch syndrome (Acute 05/29/14) Migraine (Chronic) Medical History Abdominal cramps 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 Pt will begin OCPs 11/2015. 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 Flank pain Hematuria Herpes labialis 05/12 Intermittent asthma Loose stools Migraine headache without aura Muscle tension pain Nephrolithiasis Normal colonoscopy Personal history of urinary calculi Rectal bleeding Recurrent tonsillitis Dr. 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) Tonsil stone Trigeminal neuralgia of left side of face Surgical History [place] teeth extracted Family History Mother Factor V Leiden mutation with 2 blood clots, one following Mental disorder PTSD, anxiety Headache disorder Asthma Father Personal history of malignant neoplasm skin cancer-not melanoma Asthma Sister Diabetes Asthma Social History Smoking/Tobacco Use Status: Never Smoking risk assessment performed?: Yes Alcohol Intake: current Alcohol Intake frequency: a few times a month Alcohol type: hard liquor Drug use: Never Substance use type: does not use Adopted: No Household members: spouse, children and other Details: Manisha Nguyen 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[facility], [employer] [facility] Seatbelt use: always Helmet use: Yes Drive intox or ride w/intox local hazmat driver: No Water heater temp set <120 deg: Yes Working smoke detector in home: Yes Fire extinguisher in home: Yes Carbon monox detector in home: Yes Firearms in home: Yes Firearms unloaded and locked: No Do you feel safe at home: Yes Do you feel safe in your relationship?: Yes Victim of physical abuse: No Victim of emotional abuse: No Victim of sexual abuse: No History History 2 Para 2 Hx # Term Pregnancies 2 Multiple births 0 Hx # Pregnancies 0 Ectopic pregnancies 0 AB induced 0 Hx Number of Living Children 2 AB spontaneous 0 Past Pregnancies Del. Date GA/Weeks # Preg Succ Route Wgt Sex Labor Lgth Anesth esia Location [facility] 07/12/18 40 No vaginal 3912.234 g Male 2 hrs. 30 min. Betsy Navarro CNM
[2023-07-22 14:25] LABS: Lactate 1.5 mmol/L (0.6-1.4)
[2023-07-22 14:27] LABS: Abs Immature Grans 0.02 10^3/uL (0.0-0.06); Absolute Basophil Count 0.07 10^3/uL (0.0-0.2); Absolute Eosinophil Count 0.08 10^3/uL (0.0-0.7); Absolute Lymphocyte Count 3.31 10^3/uL (1.2-3.4); Absolute Monocyte Count 0.83 10^3/uL (0.1-0.8); Absolute Neutrophil Count 5.21 10^3/uL (1.2-6.7); Basophils % 0.7; Eosinophils % 0.8; HCT 46.4 % (36.0-46.0); HGB 15.8 g/dL (11.2-15.7); Immature Grans % 0.2; Lymphocytes % 34.8; MCHC 34.1 % (32.0-36.0); MCV 88 fL (80-95); MPV 8.6 fL (8.0-11.0); Monocytes % 8.7; Neutrophils % 54.8; Platelet Count 241 10^3/uL (130-400); RBC 5.26 10^6/uL (3.93-5.22); RDW 11.5 % (11.7-14.6); RDW-SD 36.9 fL; WBC 9.52 10^3/uL (4.4-10.8)
[2023-07-22] MEDS: Ketorolac 15 MG/ML VIAL IVP (14:27)
[2023-07-22] MEDS: Ondansetron 4 MG/2 ML VIAL IVP (14:27)
[2023-07-22 14:30] LABS: Bilirubin Negative (Negative); Blood Negative (Negative); Clarity Clear (Clear); Glucose Negative (Negative); Ketones Negative (Negative); Leukocyte Esterase Negative (Negative); Nitrite Negative (Negative); Specific Gravity 1.015 (1.005-1.025); Urobilinogen 0.2 mg/dL (Up to 0.2); pH 5.5 (5-8)
[2023-07-22 14:42] LABS: ALT 27 U/L (14-59); AST 22 U/L (15-37); Albumin 4.1 g/dL (3.4-5.0); Alkaline Phosphatase 92 U/L (46-116); Anion Gap 10.8 mmol/L (3-11); BUN 14 mg/dL (7-18); Bilirubin, Total 0.6 mg/dL (0.2-1.0); CO2 27.2 mmol/L (21.0-32.0); CREATININE 1.1 mg/dL (0.55-1.02); Calcium 9.2 mg/dL (8.5-10.1); Chloride 106 mmol/L (98-107); Estimated GFR 71.51 (mL/min/1.73m2); Glucose 95 mg/dL (74-106); Lipase 40 U/L (16-77); Potassium 3.7 mmol/L (3.5-5.1); Sodium 144 mmol/L (136-145)
--- NOTE | 2023-07-22 15:00 | DI.CT_ITS ---
Exam(s) CT RENAL COLIC WO EXAM: CT RENAL COLIC WO CLINICAL HISTORY: L flank pain, increased urin freq. TECHNIQUE: Imaging Protocol: Axial computed tomography images with coronal and sagittal reformatted images were created and reviewed. CONTRAST MATERIAL: Noncontrast COMPARISON: CT CT ABDOMEN PELVIS WO from 10/15/2022 FINDINGS: ABDOMEN: Lung Bases: Normal where visualized. Liver: Normal attenuation. No measurable mass. Gallbladder and biliary tract: No radiodense calculus or dilation. Pancreas: Normal density, no calcifications or inflammatory process. Spleen: Normal. Kidneys: Normal size, contour and axis. Tiny stone noted at the lower pole of the right kidney. No m asses seen. Evaluation for pyelonephritis is limited without IV contrast. No perinephric stranding. Adrenal glands: No masses seen. Abdominal Aorta: Abdominal portion non-dilated. Soft tissues: Unremarkable. PELVIS: Bladder: Mildly distended, no gross wall thickening. No evidence of stones.No visible mass. Bowel: No obstruction or bowel wall thickening. Reproductive: Unremarkable. Peritoneal cavity: No ascites, collection or mesenteric inflammatory response. Bones: Unremarkable for age.. IMPRESSION: Tiny nonobstructing stone in the lower pole of the right kidney left kidney and bladder are unremarka ble.. RADIATION DOSE DELIVERED: 957.35mGy.cm Total DLP DATA REPOSITORY: All CT scans at this facility are submitted to the National Radiology Data Registry (NRDR) Dose Index Registry (DIR) with the [employer] (A[employer]). RADIATION OPTIMIZATION: All CT scans at this facility use at least one of these dose optimization te chniques: automated exposure control; mA and/or kV adjustment per patient size (includes targeted exa ms where dose is matched to clinical indication); or iterative reconstruction.
== END 2023-07-22 15:27 | disposition home or self-care (01) ==
PROVIDERS: Emergency Provider Physician Assistant; PCP Nurse Practitioner Family
DX: R10.31 Right lower quadrant pain (principal); R10.32 Left lower quadrant pain; Z87.442 Personal history of urinary calculi; Z87.440 Personal history of urinary (tract) infections
CPT/HCPCS: 36415; 80053; 81025; 83690; 96374; 96375; 99284; 74176; 81003; 83605; 85025; 99283; J1885; J2405

== ENCOUNTER 2023-08-14 10:38 | Emergency (ER) | payer OTHER, SELFPAY ==
[2023-08-14 10:42] VITALS: BP 142/96; PULSE 110; RESP 12; TEMP 37; O2SAT 98
--- NOTE | 2023-08-14 10:46 | ED.GENADUL_ITS ---
Discharge Plan Disposition Patient Disposition: Home Discharge Details Clinical Impression: Acute pain of right knee Primary Care Provider: Raiza Cruz ED Provider: Thiago Nolan Home Meds and New Rx's Prescriptions: Continued fluticasone propionate [Flonase Allergy Relief] 50 mcg/actuation spray,suspension 1 spray intranasal BID Rx Instructions: administer into each nostril ondansetron HCl 4 mg tablet 4 mg PO Q8H PRN (Reason: nausea and vomiting) Qty: 12 2RF medroxyprogesterone [Depo-Provera] 150 mg/mL syringe 150 mg IM [id number] Qty: 1 4RF escitalopram oxalate [Lexapro] 10 mg tablet 10 mg PO DAILY epinephrine [EpiPen 2-Morgan] 0.3 MG/0.3 ML auto-injector 0.3 mg IM ONCE Qty: 1 Patient Comments: 02/07/14 - PT HAS NOT HAD TO USE as needed Rx Instructions: use per allergy action plan with exposure to shellfish albuterol sulfate [ProAir HFA] 8.5 GM HFA aerosol inhaler 2 puff Inhalation Q4H PRN Qty: 1 Rx Instructions: Use 2 puffs 15 min prior to excercise and q4hr prn cough/wheeze acetaminophen [Acetaminophen Extra Strength] 500 mg Tablet 1,000 mg PO PRN PRN Discharge Instructions Instructions: Knee Pain (ED) Additional Instructions: You are seen in the emergency department for your knee pain. Your x-ray showed no sign of any fractures. As we discussed please wear this knee immobilizer. You may bear weight as tolerated using crutches. Please follow-up with your primary care provider later this week. If your swelling worsens or if you cannot move your right foot please return to the emergency department. For your pain please take medications as follows: 1. Take acetaminophen (Tylenol), 1,000 mg (two 500 mg tabs) every 6 hours [2. Take ibuprofen (Advil), 400 mg every 6 hours.] Discharge Data Discharge Date/Time-TO BE ENTERED AT DEPARTURE: 08/14/23 14:13 HPI General Date/Time Provider Initiated Documentation: 08/14/23 10:42 . HPI Narrative: MDM This is an overall very well-appearing normothermic but mildly tachycardic 27-year-old female with right knee pain concerning for the possibility of ligamentous injury versus fracture for which she will undergo plain films. Patient is able to straight leg raise so I am not suspicious for quadriceps tendon rupture. I considered knee dislocation however the patient has no perineal nerve palsy no rhistory of BMI > 40 nor significant instability in multiple directions nor any hyperextension when foot is lifted so I did not feel that the patient required a CT angiogram as I was not suspicious for popliteal arterial injury. No head strike to suggest benefit from CT head. No pain on proportion to suggest necrotizing soft tissue infection. No significant swelling nor fevers to suggest septic joint. No history of gout so doubt gouty arthritis. No palpable cords to suggest DVT. Will provide oral analgesia using acetaminophen as patient has previously taken ibuprofen earlier this morning. Will have patient seen later this week by primary care if her x-ray is unremarkable. 8pm XRs unremarkable. Tachycardia resolved without intervention. Patient and I discussed ED return for worsening pain, swelling or any fevers. She understood her return indications and was discharged with an empiric trial of expectant outpatient management. HPI This is a previously healthy 27-year-old female arrived to emergency department via private vehicle in setting of right knee pain. Patient was reportedly jumping on a trampoline yesterday evening. She attempted a flip. She landed awkwardly and her right knee reportedly buckled. She was having difficulty ambulating subsequently. She took 650 mg of ibuprofen earlier this morning approximate 1 and half hours ago. She has never had any surgeries to her right knee. She is not a diabetic nor a smoker. She is not anticoagulated. She said worsening pain this morning so elected to come into the emergency department. She did not hit her head. 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 Exam General: Well-appearing in no acute distress speaking in complete sentences. Head: Normocephalic, atraumatic. Eye: Extraocular eye movements intact. No conjunctival injection. No scleral icterus. Ear, nose, mouth, throat: Grossly normal inspection. Normal voice, handling secretions normally. Neck: Trachea midline. Cardiovascular: Well-perfused distal extremities. Respiratory: Nonlabored respiration. Gastrointestinal: Nondistended abdomen. Musculoskeletal: Right lower extremity with no obvious deformities lacerations nor ecchymosis. Very mild swelling of the right knee which is held and approximately 10 degrees of flexion. Right foot warm well-perfused with cap refill less than 2 seconds in the right toes. 2+ PT and DP pulses. Sensation intact in the webspace between the first and second toes. 4 out of 5 strength right foot dorsi and plantar flexion limited secondarily to pain. No tenderness throughout right foot ankle and calf. Patient does have right lateral knee tenderness. She does have some very mild instability on anterior drawer. No significant instability on posterior drawer. No laxity on valgus nor varus stress testing. No proximal femur tenderness. Patient is able to straight leg raise on the right. Skin: Normal for age and race, grossly normal temperature and turgor. No acute rash. Neurologic: Alert and appropriate, no apparent acute deficits. GCS 15. Psychiatric: Mood and manner are appropriate. Grooming and personal hygiene are appropriate. Related Data Home Medications Medication Instructions Recorded Confirmed epinephrine 0.3 mg/0.3 mL 0.3 mg IM ONCE ##1 11/26/13 07/22/23 injection, auto-injector (EpiPen 2-Morgan) albuterol sulfate 90 mcg/actuation 2 puff inhalation Q4H PRN ##1 12/16/14 07/22/23 aerosol inhaler (ProAir HFA) acetaminophen 500 mg tablet 1,000 mg PO PRN PRN 09/26/20 07/22/23 (Acetaminophen Extra Strength) fluticasone propionate 50 1 spray intranasal BID 08/11/21 07/22/23 mcg/actuation nasal spray,suspension (Flonase Allergy Relief) ondansetron HCl 4 mg tablet 4 mg PO Q8H PRN nausea and 10/14/22 07/22/23 vomiting #12 tabs escitalopram oxalate 10 mg tablet 10 mg PO DAILY 12/09/22 07/22/23 (Lexapro) medroxyprogesterone 150 mg/mL 150 mg IM [id number] #1 mL 03/02/23 07/22/23 intramuscular syringe (Depo-Provera) Previous Rx's Medication Instructions Recorded ondansetron HCl 4 mg tablet 4 mg PO Q8H PRN nausea and 10/14/22 vomiting #12 tabs medroxyprogesterone 150 mg/mL 150 mg IM [id number] #1 mL 03/02/23 intramuscular syringe (Depo-Provera) Allergies Allergy/AdvReac Type Severity Reaction Status Date / Time paroxetine Allergy Mild rash Verified 07/22/23 14:08 Sulfa (Sulfonamide Allergy Mild RASH Verified 07/22/23 14:08 Antibiotics) shellfish derived Allergy hives Verified 07/22/23 14:08 General Stated Complaint: Orthopedic JOLNYN: 4 Course Vital Signs Vital signs: Vital Signs Temperature 37.0 C 08/14/23 10:42 Pulse 110 H 08/14/23 10:42 Respiratory Rate 12 08/14/23 10:42 Blood Pressure 142/96 H 08/14/23 10:42 Pulse Oximetry 98 08/14/23 10:42 Temperature 37.0 C 08/14/23 10:42 Temperature Source Temporal Artery Scan 08/14/23 10:42 Pulse 110 H 08/14/23 10:42 Respiratory Rate 12 08/14/23 10:42 Blood Pressure 142/96 H 08/14/23 10:42 Blood Pressure Position Sitting 08/14/23 10:42 Pulse Oximetry 98 08/14/23 10:42 Oxygen Delivery Method Room Air 08/14/23 10:42 Oxygen Flow Rate 0 08/14/23 10:42 Pain Level 7 08/14/23 10:42 Medical Decision Making Quality:SDOH Health Related Social Needs: No Data to Display PFSH All Active Problems (Updated 08/14/23 @ 13:25 by Thiago Nolan MD) Acute pain of right knee (Acute) Left flank pain (Acute) Vulvar lesion (Acute) Lump of right breast (Acute) Mastalgia (Acute) Anxiety disorder (Acute) Women's annual routine gynecological examination (Acute) Depo-Provera contraceptive status (Acute) Exercise-induced asthma (Acute 12/16/14) Precordial catch syndrome (Acute 05/29/14) Migraine (Chronic) Medical History Abdominal cramps 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 Pt will begin OCPs 11/2015. 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 Flank pain Hematuria Herpes labialis 05/12 Intermittent asthma Loose stools Migraine headache without aura Muscle tension pain Nephrolithiasis Normal colonoscopy Personal history of urinary calculi Rectal bleeding Recurrent tonsillitis Dr. 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) Tonsil stone Trigeminal neuralgia of left side of face Surgical History [place] teeth extracted Family History Mother Factor V Leiden mutation with 2 blood clots, one following Mental disorder PTSD, anxiety Headache disorder Asthma Father Personal history of malignant neoplasm skin cancer-not melanoma Asthma Sister Diabetes Asthma Social History Smoking/Tobacco Use Status: Never Smoking risk assessment performed?: Yes Alcohol Intake: current Alcohol Intake frequency: a few times a month Alcohol type: hard liquor Drug use: Never Substance use type: does not use Adopted: No Household members: spouse, children and other Details: Manisha Nguyen Housing: house 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[employer], [employer]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 [employer] Seatbelt use: always Helmet use: Yes Drive intox or ride w/intox lyft driver: No Water heater temp set <120 deg: Yes Working smoke detector in home: Yes Fire extinguisher in home: Yes Carbon monox detector in home: Yes Firearms in home: Yes Firearms unloaded and locked: No Do you feel safe at home: Yes Do you feel safe in your relationship?: Yes Victim of physical abuse: No Victim of emotional abuse: No Victim of sexual abuse: No History History 2 Para 2 Hx # Term Pregnancies 2 Multiple births 0 Hx # Pregnancies 0 Ectopic pregnancies 0 AB induced 0 Hx Number of Living Children 2 AB spontaneous 0 Past Pregnancies Del. Date GA/Weeks # Preg Succ Route Wgt Sex Labor Lgth Anesth esia Location [facility] 07/12/18 40 No vaginal 3912.234 g Male 2 hrs. 30 min. Betsy Navarro CNM
--- NOTE | 2023-08-14 11:15 | DI.RAD_ITS ---
Exam(s) XR KNEE RT 4V AP,LAT,DAHLIA,PAT EXAM: XR KNEE RT 4V AP,LAT,DAHLIA,PAT CLINICAL HISTORY: Right knee pain. TECHNIQUE: 2D digital imaging was performed of the right knee. Four views obtained. Merchant, AP, la teral and PA tunnel views were obtained. COMPARISON: CR RIGHT KNEE 3 VIEWS from 11/08/2012 FINDINGS: BONES: No acute fracture is present. No bony destructive lesion is seen. JOINTS: The knee is normally aligned. No joint effusion is seen. SOFT TISSUE: Normal. IMPRESSION: Unremarkable radiographs of the right knee. DATA REPOSITORY: RADIATION DOSE DELIVERED:
[2023-08-14] MEDS: Acetaminophen 500 MG TAB 1000 MG PO (11:30)
[2023-08-14 11:46] VITALS: PULSE 94
--- NOTE | 2023-08-14 13:13 | DI.VRAD_ITS ---
PROCEDURE INFORMATION: Exam: XR Left Knee Exam date and time: 08/14/2023 11:54 AM Age: 27 years old Clinical indication: Injury or trauma; Other: Trampoline ax; Sprain or strain; Patella or knee; Right TECHNIQUE: Imaging protocol: Radiologic exam of the left knee. Views: 4 or more views. COMPARISON: No relevant prior studies available. FINDINGS: Bones/joints: No displaced fracture nor dislocation seen. Soft tissues: No metallic foreign body seen. IMPRESSION: No displaced fracture seen. Dictated and Authenticated by: Rafal Bennett MD. Ordering:SETH Das MD
== END 2023-08-14 14:13 | disposition home or self-care (01) ==
PROVIDERS: Emergency Provider Emergency Medicine; PCP Nurse Practitioner Family
DX: M25.561 Pain in right knee (principal)
CPT/HCPCS: 99283; 73564

== ENCOUNTER 2023-08-18 14:41 | Outpatient (REF) | payer OTHER, SELFPAY | END 2023-08-18 14:42 | disposition home or self-care (01) | LOC: LBN 14:41 | PROVIDERS: PCP Nurse Practitioner Family; Visit Provider Nurse Practitioner Family | DX: J02.9 Acute pharyngitis, unspecified (principal) | CPT/HCPCS: 87070 ==

== ENCOUNTER 2024-01-23 07:47 | Day surgery (SDC) | payer OTHER, SELFPAY ==
[2024-01-23] VITALS (17 sets, daily range): BP systolic 117–125; BP diastolic 67–84; PULSE 81–107; RESP 0–21; TEMP 36.5–36.8; O2SAT 96–98; BMI 32.7
[2024-01-23] MEDS: Lactated Ringers 1,000 ML 75 ML IV (08:16)
--- NOTE | 2024-01-23 09:51 | W.ANESPRE ---
General Info Date of Service Date Performed: 01/23/24 Height: 5 ft 1 in Weight: 78.5 kg Body Mass Index (BMI): 32.7 Surgical Procedure: Operation Date: 01/23/24 10:55 Proposed Procedure Side Surgeon p Tonsillectomy, Removal Soft Palate Mass Alexander Palomino MD Meds Allergies and Home Medications Allergies Allergy/AdvReac Type Severity Reaction Status Date / Time Sulfa (Sulfonamide Allergy Mild RASH Verified 01/23/24 07:55 Antibiotics) pollen extracts Allergy Unknown Verified 01/23/24 07:55 paroxetine AdvReac Mild rash Verified 01/23/24 07:55 Home Medication ?Medication ?Instructions ?Recorded acetaminophen 500 mg tablet 1,000 mg PO PRN PRN 09/26/20 (Acetaminophen Extra Strength) fluticasone propionate 50 1 spray intranasal BID 08/11/21 mcg/actuation nasal spray,suspension (Flonase Allergy Relief) ondansetron HCl 4 mg tablet 4 mg PO Q8H PRN nausea and 10/14/22 vomiting #12 tabs albuterol sulfate 90 mcg/actuation 2 puff inhalation Q4H PRN ##1 09/23/23 aerosol inhaler (ProAir HFA) epinephrine 0.3 mg/0.3 mL 0.3 mg (0.3 mL) IM ONCE ##1 09/23/23 injection, auto-injector (EpiPen 2-Morgan) Current Visit Medications: Current Medications Generic Name Dose Route Start Last Admin Trade Name Freq PRN Reason Stop Dose Admin Ringer's Solution 1,000 mls @ 75 mls/hr 01/23/24 06:00 01/23/24 08:16 IV 01/23/24 23:59 75 mls/hr INFUSION MARISSA Administration Cefazolin Sodium/Dextrose 2 gm in 50 mls @ 100 mls/hr 01/23/24 06:00 Ancef Duplex IVPB 01/23/24 23:59 PREOP MARISSA Tranexamic Acid/Sodium Chloride 1,000 mg in 100 mls @ 600 mls/hr 01/23/24 06:00 IVPB 01/23/24 23:59 PREOP MARISSA IV Miscellaneous Supplies 1 each 01/23/24 06:00 Iv Access IV 01/23/24 23:59 DIRECTED MARISSA Sodium Chloride 0 ml 01/23/24 06:00 Normal Saline Flush 10 Ml Syr IV 01/23/24 23:59 PRN PRN Sodium Chloride 0 ml 01/23/24 06:00 Normal Saline 10 Ml Vial IJ 01/23/24 23:59 DIRECTED PRN Sterile Water 0 ml 01/23/24 06:00 Water,Injection,Sterile 10 Ml Vial IJ 01/23/24 23:59 DIRECTED PRN PFSH Active Problems Active Problems: Problem Status Onset Code Chronic tonsillitis Acute J35.01 Oral mucosal lesion Acute K13.70 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), not intractable Acute G44.059 Chronic migraine without aura Acute G43.709 Amblyopia of left eye Acute H53.002 Allergy to seafood Acute Z91.013 PTSD (post-traumatic stress disorder) Acute F43.10 Vulvar lesion Acute N90.89 Anxiety disorder Acute F41.9 Depo-Provera contraceptive status Acute Z30.42 Exercise-induced asthma Acute 12/16/14 J45.990 Precordial catch syndrome Acute 05/29/14 R07.2 Migraine Chronic G43.909 Medical History Medical History Blepharitis of eyelid of right eye Disorder of sleep-wake cycle Lump of right breast Mastalgia Women's annual routine gynecological examination Complicated UTI (urinary tract infection) Contraception Encounter for screening for other viral diseases Migraine headache without aura Chronic headache 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 Palomino Hematuria Renal colic on left side Family history of factor V Leiden mutation 08/2015 pt is neg for mutation. Contraception Depo Provera Q3mo since 2012. Pt will begin OCPs 11/2015. Amblyopia left eye 05/06 Herpes labialis 05/12 Closed fracture of lower end of radius and ulna right-05/15 Closed fracture of elbow right-07/06 Surgical History Surgical History H/O lithotripsy History of ureteroscopy Hx of colonoscopy (02/12/21) [place] teeth extracted Tobacco Smoking/Tobacco Use Status: Never Passive smoking exposure: No Alcohol Alcohol Intake: current Alcohol intake frequency: a few times a month Alcohol type: hard liquor Substance Use Substance use: Never Substance use type: does not use Prental History History 2 Para 2 Hx # Term Pregnancies 2 Multiple births 0 Hx # Pregnancies 0 Ectopic pregnancies 0 AB induced 0 Hx Number of Living Children 2 AB spontaneous 0 Past Pregnancies Del. Date GA/Weeks # Preg Succ Route Wgt Sex Labor Lgth Anesthesia Location Prov Complic 07/12/18 40 No vaginal 3912.234 g Male 2 hrs. 30 min. Betsy Navarro CNM Vital Signs and Lab Results Vital Signs Most Recent Vital Signs in EMR: Most Recent Vital Signs Temp Pulse Resp BP Pulse Ox 36.7 C 92 H 20 125/84 97 01/23/24 07:56 01/23/24 07:56 01/23/24 07:56 01/23/24 07:56 01/23/24 07:56 Point of Care Results Point of Care Results: POC- Test(urine) Negative 01/23/24 08:07 Lab Results Blood Type / Crossmatch: No Data to Display Complete Blood Count: No Data to Display Complete Metabolic Panel: No Data to Display Liver Function Panel: No Data to Display Coagulation Panel: No Data to Display Cardiac Panel: No Data to Display Arterial Blood Gas: No Data to Display Venous Blood Gas: No Data to Display Pancreas Panel: No Data to Display Thyroid Panel: No Data to Display Infectious Disease: No Data to Display Blood Cultures: No Data to Display Toxicology Panel: No Data to Display Panel: No Data to Display Imaging and Studies Imaging and Studies Study information below may be from another EMR and interpreted by another provider. Please see original notes in EMR for more complete details. EKG Summary: DATE/TIME OF SERVICE: 04/10/212035 : 1995PERFORMING LOCATION: [place] Exam: Resting ECG Reason for Exam: shortness of breath, epigastric pain Patient Location: E HR:86 bpm ECG Measurements Heart Rate 86 AXIS OR 105 P 69 QRSd 71 QRS 71 QT 361 T59 QTc 433 Conclusion Sinus rhythm...normal P axis, V-rate 60- 99 Pulmonary Function Summary: FEBRUARY 07, 2019 REQUESTING PROVIDER: Raiza Cruz SPIROMETRY: Shows no evidence of obstructive airways disease. No bronchodilator testing was carried out. LUNG VOLUME: Shows no evidence of restriction. DIFFUSION CAPACITY: Elevated. AIRWAYS RESISTANCE: Normal. IMPRESSION: Isolated, elevated diffusion capacity. This constellation of findings can be seen in asthma. If the diagnosis of asthma is in question then proceeding the Methacholine challenge testing may prove to be useful. Anesthesia Assessment and Plan Anesthesia History Personal History: No History of Anesthesia Complications Family History: No Family History of Anesthesia Complications Exercise Tolerance Exercise Tolerance: Metabolic Equivalents>4 Pertinent Negatives Pertinent Negatives: No Symptoms of GERD, No Major Cardiovascular Symptoms or Complaints and No Major Pulmonary Symptoms or Complaints Cardiac & Pulmonary Exam Cardiac Exam: Normal S1/S2 Heart Sounds Pulmonary Exam: Clear Bilateral Breath Sounds Cardiac and Pulmonary Comment:: No inhaler use for years Implantable Cardiac Device Does patient have a Pacemaker or an ICD?: No Airway Exam Known Difficult Airway: No Mallampati Class: 1 Mouth Opening: Normal (> 3cm) Thyromental Distance: Greater than 3 cm Neck Range of Motion: Full ROM Neck Circumference: Normal Teeth Condition: Normal Dentition ASA Classification ASA Score: ASA 2 Emergency Case?: No NPO Status NPO Status: NPO Clears >2 hours, Solids >8 hours Status Status: Negative HCG Anesthesia Plan Resuscitation Status: Full Code Anesthesia Technique: General Anesthesia Airway Planned: Endotracheal Tube Monitors Used: Standard Monitors
--- NOTE | 2024-01-23 10:14 | W.PM.DSUDISC ---
Date of service: 01/23/24 Time of Service: 10:14 Discharge Plan Disposition Patient Disposition: Home Condition: Good Discharge Details Reason For Visit: Tonsillectomy, palatal lesion excision Attending Provider: Alexander Palomino Primary Care Provider: Raiza Cruz Home Meds and New Rx's Prescriptions: No Action fluticasone propionate [Flonase Allergy Relief] 50 mcg/actuation spray,suspension 1 spray intranasal BID Rx Instructions: administer into each nostril ondansetron HCl 4 mg tablet 4 mg PO Q8H PRN (Reason: nausea and vomiting) Qty: 12 2RF epinephrine [EpiPen 2-Morgan] 0.3 mg/0.3 mL auto-injector 0.3 mg IM ONCE Qty: 1 1RF Rx Instructions: use per allergy action plan with exposure to shellfish albuterol sulfate [ProAir HFA] 90 mcg/actuation HFA aerosol inhaler 2 puff Inhalation Q4H PRN Qty: 1 1RF Rx Instructions: Use 2 puffs 15 min prior to excercise and q4hr prn cough/wheeze acetaminophen [Acetaminophen Extra Strength] 500 mg Tablet 1,000 mg PO PRN PRN Discharge Instructions Additional Instructions: My cell phone number is [phone]. Please call with any questions or concerns. If you are unable to reach me and you feel it is an emergency, please dial 911 or proceed to the emergency room You may return to work after 1 week, but no heavy lifting for 10 days (greater than 15 pounds) Stand Alone Forms: ENT- T&A Instr. Georgette Referrals: Alexander Palomino MD [ [facility] STAFF PHYSICIAN] - (1 month, please call for appointment before she leaves if not already scheduled) Discharge Orders Discharge Orders: Discharge Order (Routine); Ordered 01/23/24 Ordered By: Alexander Palomino
--- NOTE | 2024-01-23 10:16 | W.PM.OP ---
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 She also has chronic tonsillitis with tonsil stone formation. Options were explained to the patient regarding further management. She elected undergo the above procedure. Risks and benefits as well as the operative and postoperative courses were discussed at length. Risks of narcotics including respiratory depression and dependence were discussed at length. Consent was reviewed. H&P was reviewed. There have been no changes. She still wished to proceed. All questions were answered for her and for her prior to the procedure. Findings: 3+ tonsils with copious cryptic debris, adenoids atrophic, right soft palate narrowly pedunculated mass consistent with a papilloma. Palate intact to inspection and palpation. Procedure Description: After obtaining an adequate level of general endotracheal anesthesia the patient was positioned in supine position and prepped and draped in appropriate fashion. Cardiovis mouthgag was carefully introduced into the oral cavity and opened revealed a soft and hard palate which were examined revealing no evidence of occult cleft palate. 0.5% Marcaine with 1/100,000 epinephrine was injected into the submucosal plane around the tonsils bilaterally as well as under the right soft palate mass. 5 minutes was allowed to elapse and then the soft palate mass was distracted and excised with a rim of normal tissue. Defect measured approximately 4 x 4 mm. Attention was then turned to the tonsils. Each tonsil was pulled medially and posteriorly and a 12 blade used to incise mucosa along the superior, anterior, and posterior edges of the tonsil. A Curt elevator was then used to disarticulate the tonsil from the superior tonsillar fossa and the Sanches blade then used to strip the tonsil free from the tonsillar fossa down to the inferior pole at which point in time a tonsillar snare was used to amputate the tonsil from the tonsillar fossa. Once been accomplished bilaterally, electrocautery suction tip catheter set on 15 W coagulation was used to achieve relative hemostasis within the tonsillar beds. Valsalva failed to induce further bleeding. The mouthgag was relaxed and reopened revealing no further bleeding. The mouthgag was then relaxed and removed and the patient was then awakened and extubated by anesthesia and taken the recovery room in stable condition. I was present throughout the entire case. No sutures were applied
[2024-01-23] MEDS: ceFAZolin 2 GM/50 ML BAG IVPB (10:45)
[2024-01-23] MEDS: TRANEXAMIC ACID/SOD. CHL. 1,000 MG/100 ML BAG 600 MG IVPB (10:51)
--- NOTE | 2024-01-23 11:00 | TONSIL_PTH ---
PATIENT: Sarah De León LOC: [facility] U#:[id number] AGE/SX: 28/F ROOM: RE01/23/[address]: Alexander Palomino MD : 1995 BED: DIS: 01/23/2024 SPEC #: [id number] RECD: 01/23/24 12:58 STATUS: ADDIS REQ #: [id number] MICKEY: 01/23/24 11:[address]: Alexander Palomino DEPT: Surgical Specimen RECD BY: Gladys Sullivan ENTERED: 01/23/24 13:00 SP TYPE: TONSIL OTHR DR: Raiza Cruz APRN Tissues: 1 - TONSIL AGE 17 & OVER 2 - TONSIL AGE 17 & OVER 3 - MUCOSA, NOS Procedures: GROSS AND MICRO LEVEL 4 GROSS AND MICRO LEVEL 3 Comments: [id number]
[2024-01-23] MEDS: Bupivacaine 0.5% Pres-Free W/EPI 10 ML VIAL (11:04)
--- NOTE | 2024-01-23 12:42 | W.ANESPOSTOP ---
Postoperative Evaluation Date, Time and Location Date Performed: 01/23/24 Time Performed: 12:42 Patient Location: Day Surgery Unit Vital Signs Most Recent Imported Vital Signs: Most Recent Vital Signs Temp Pulse Resp BP Pulse Ox 36.7 C 84 20 117/71 98 01/23/24 12:23 01/23/24 12:23 01/23/24 12:23 01/23/24 12:23 01/23/24 12:23 Pain Score Most Recent Pain Score: Most Recent Pain Score Pain Level 3 01/23/24 12:23 Assessment Mental Status: Awake (Alert & Oriented to Patient Baseline) Airway and Respiratory Function: Patent airway with normal (patient baseline) respiratory exam Cardiovascular Function: Hemodynamically Stable Hydration Status: Adequately Hydrated Nausea & Vomiting: No Nausea or Vomiting Pain: Pain is tolerable per patient Peripheral Nerve Block: Patient did not receive a nerve block
== END 2024-01-23 12:50 | disposition home or self-care (01) ==
PROVIDERS: PCP Nurse Practitioner Family; Visit Provider Otolaryngology
PROC: (CPT 42826; principal; 2024-01-23 10:45)
DX: J35.01 Chronic tonsillitis (principal); D10.39 Benign neoplasm of other parts of mouth; G44.059 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), not intractable; J45.990 Exercise induced bronchospasm
CPT/HCPCS: 42826; 42104; 81025; 88305; 88304; J0131; J0690; J1100; J2405; J2704

== ENCOUNTER 2024-06-26 02:48 | Outpatient (CLI) | payer OTHER, SELFPAY ==
[2024-06-26 11:30] LABS: Panorama Kit Sent via Fed Ex
[2024-06-26 11:37] LABS: Abs Immature Grans 0.02 10^3/uL (0.0-0.06); Absolute Basophil Count 0.02 10^3/uL (0.0-0.2); Absolute Eosinophil Count 0.06 10^3/uL (0.0-0.7); Absolute Lymphocyte Count 2.25 10^3/uL (1.2-3.4); Absolute Monocyte Count 0.54 10^3/uL (0.1-0.8); Basophils % 0.2 %; Eosinophils % 0.7 %; HCT 38.1 % (36.0-46.0); HGB 12.9 g/dL (11.2-15.7); Immature Grans % 0.2 %; Lymphocytes % 25.6 %; MCHC 33.9 % (32.0-36.0); MCV 89 fL (80-95); MPV 8.7 fL (8.0-11.0); Monocytes % 6.1 %; Neutrophils % 67.2 %; Platelet Count 228 10^3/uL (130-400); RDW 11.9 % (11.7-14.6); RDW-SD 37.9 fL; WBC 8.79 10^3/uL (4.4-10.8)
[2024-06-26 18:26] LABS: Hepatitis B Surface Ag Negative (Negative)
[2024-06-26 18:42] LABS: Lab Add On Test DONE
[2024-06-26 18:54] LABS: Hepatitis C Ab w Rflx HCV PCR Negative (Negative)
[2024-06-26 18:59] LABS: HIV-1/2 Ag & Ab Screen Negative (Negative)
[2024-06-26 19:12] LABS: TSH (W/Ref FT4) 0.75 uIU/mL (0.36-3.74)
[2024-06-27 12:34] LABS: Rubella IgG Ab (UVM) Positive (See Note); Varicella IgG Antibody Positive (See Note)
[2024-06-28 21:50] LABS: Syphilis IgG w/Reflex Nonreactive (Nonreactive)
== END 2024-06-26 02:49 | disposition home or self-care (01) ==
LOC: LBO 02:48
PROVIDERS: Advanced Practice Midwife; PCP Nurse Practitioner Family; Visit Provider Advanced Practice Midwife
DX: Z34.91 Encounter for supervision of normal pregnancy, unspecified, first trimester (principal); Z83.49 Family history of other endocrine, nutritional and metabolic diseases
CPT/HCPCS: 36415; 86787; 86803; 86850; 86900; 86901; 87340; 87389; 84443; 85025; 86762; 86780

== ENCOUNTER 2024-06-26 09:34 | Outpatient (REF) | payer OTHER, SELFPAY ==
--- NOTE | 2024-06-26 10:45 | PAPFT_PTH ---
PATIENT: Sarah De León LOC: [facility] U#:[id number] AGE/SX: 28/F ROOM: RE06/26/[address]: Delfina Yun : 1995 BED: DIS: 06/26/2024 SPEC #: [id number] RECD: 06/26/24 12:48 STATUS: ADDIS REQ #: [id number] MICKEY: 06/26/24 10:[address]: Delfina Yun DEPT: [facility] Cytology RECD BY: Gladys Sullivan ENTERED: 06/26/24 12:48 SP TYPE: PAPFT OTHR DR: Raiza Cruz APRN Tissues: 1 - CX/ENDOCX FOR PAP SMEARS Procedures: PAP THIN PREP/UVM Screening HPV DNA PROBE Comments: [id number] (HPV 16 & 18/45) (CHLAMYDIA/GC)
[2024-06-27 13:00] LABS: Chlamydia Result Negative (Negative); GC Result Negative (Negative)
== END 2024-06-26 09:35 | disposition home or self-care (01) ==
LOC: LBN 09:34
PROVIDERS: PCP Nurse Practitioner Family; Visit Provider Advanced Practice Midwife
DX: Z12.4 Encounter for screening for malignant neoplasm of cervix (principal); Z01.419 Encounter for gynecological examination (general) (routine) without abnormal findings
CPT/HCPCS: 87491; 87591; 88142; 87086; 87624

== ENCOUNTER 2024-07-19 12:42 | Outpatient (REF) | payer OTHER, SELFPAY | END 2024-07-19 12:43 | disposition home or self-care (01) | LOC: LBN 12:42 | PROVIDERS: PCP Nurse Practitioner Family; Visit Provider Advanced Practice Midwife | DX: Z3A.01 Less than 8 weeks gestation of pregnancy (principal); R30.0 Dysuria | CPT/HCPCS: 87086 ==

== ENCOUNTER 2024-08-21 02:29 | Outpatient (CLI) | payer OTHER, SELFPAY ==
[2024-08-21 11:15] LABS: TSH (W/Ref FT4) 1.23 uIU/mL (0.36-3.74)
[2024-08-23 14:09] LABS: AFP 39.5 ng/mL; Calculated age at EDD 27 years; Cigarette smoking status non-Smoker; GA used in risk estimate Scan estimate; IVF Pregnancy No; Initial or repeat testing Initial testing; Insulin dependent diabetes No; Maternal Weight 155 lbs; Number of Fetuses 1; Physician Phone Number 802-748-7300; Prev Pregnancy w/NTD No; RECOMMENDED FOLLOW UP None.; Results Summary Normal risk
== END 2024-08-21 02:30 | disposition home or self-care (01) ==
LOC: LBO 02:29
PROVIDERS: Advanced Practice Midwife; PCP Nurse Practitioner Family; Visit Provider Advanced Practice Midwife
DX: Z83.49 Family history of other endocrine, nutritional and metabolic diseases; Z34.91 Encounter for supervision of normal pregnancy, unspecified, first trimester
CPT/HCPCS: 36415; 82105; 84443

== ENCOUNTER 2024-10-17 15:55 | Outpatient (CLI) | payer OTHER, SELFPAY ==
[2024-10-17 16:31] VITALS: BP 116/74; PULSE 89
[2024-10-17 17:40] VITALS: BP 116/74; PULSE 89; TEMP 36.6
[2024-10-17 19:28] LABS: Fetal Fibronectin Negative (Negative)
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
[2024-10-17 20:53] VITALS: BP 116/74; PULSE 89; TEMP 36.6
[2024-10-18 08:54] VITALS: BP 145/67; PULSE 75
== END 2024-10-17 18:23 ==
LOC: BCD 16:02 → OBS 16:14
PROVIDERS: PCP Nurse Practitioner Family; Visit Provider Advanced Practice Midwife
DX: O99.891 Other specified diseases and conditions complicating pregnancy (principal); R25.2 Cramp and spasm; Z3A.26 26 weeks gestation of pregnancy
CPT/HCPCS: 84112; 59025; 82731; 87086; 87480; 87510; 87660

== ENCOUNTER 2024-10-22 01:56 | Outpatient (CLI) | payer OTHER, SELFPAY ==
[2024-10-22 11:27] LABS: HCT 34.4 % (36.0-46.0); HGB 11.7 g/dL (11.2-15.7); MCH 31.3 pg (27.0-33.0); MCHC 34.0 % (32.0-36.0); MCV 92 fL (80-95); MPV 8.8 fL (8.0-11.0); Platelet Count 201 10^3/uL (130-400); RBC 3.74 10^6/uL (3.93-5.22); RDW 12.3 % (11.7-14.6); RDW-SD 41.1 fL; WBC 9.46 10^3/uL (4.4-10.8)
[2024-10-22 12:00] LABS: Glucose,1 Hr (Glucola) 143 mg/dL (80-140)
== END 2024-10-22 01:57 | disposition home or self-care (01) ==
LOC: LBO 01:58
PROVIDERS: PCP Nurse Practitioner Family; Visit Provider Advanced Practice Midwife
DX: Z34.92 Encounter for supervision of normal pregnancy, unspecified, second trimester
CPT/HCPCS: 36415; 82950; 85027

== ENCOUNTER 2024-11-06 14:45 | Outpatient (CLI) | payer OTHER, SELFPAY ==
[2024-11-06 10:27] LABS: Glucose 1 Hour 174 mg/dL
== END 2024-11-06 14:46 | disposition home or self-care (01) ==
LOC: LBO 14:47
PROVIDERS: PCP Nurse Practitioner Family; Visit Provider Advanced Practice Midwife
DX: O26.90 Pregnancy related conditions, unspecified, unspecified trimester (principal)
CPT/HCPCS: 36415; 82951

== ENCOUNTER 2024-11-28 08:41 | Outpatient (CLI) | payer OTHER, SELFPAY ==
[2024-11-28 09:10] VITALS: BP 121/73; PULSE 115; RESP 18; TEMP 36.4
[2024-11-28 09:34] VITALS: BP 121/73; PULSE 115; TEMP 36.4
[2024-11-28 10:38] LABS: Fetal Fibronectin Negative (Negative)
--- NOTE | 2024-11-28 16:40 | W.OBNST ---
Date of service: 11/28/24 Time of Service: 11:30 NST Evaluation Reason for NST Reasons for Nonstress Test: LABOR Gestational Age Gestational Age in Weeks and Days: 32 Weeks and 2Days Test and Monitor Explained Test/Monitor Explained: Test Explained, Monitor Explained and Patient Verbalized Understanding Vital Signs Blood Pressure: 121/73 Pulse: 115 Temperature: 97.5 F Weight: 166 lb 1.6 oz Urine Results Urine Protein: Negative Urine Ketones: Positive Urine Glucose: Positive Urine Blood: Positive NST Information Date on Monitor: 11/28/24 Time on Monitor: 09:10 Date off Monitor: 11/28/24 Time off Monitor: 10:47 Total Time on Monitor: 97 NST Interventions: PO Hydration Contraction Frequency: Irregular NST Evaluation Patient States Movement: Present FHR Baseline: 135 Variability: Moderate 6-25 bpm Accelerations: 15x15 Decelerations: None NST Results: Reactive Note Ultrasound Done: N/A. NST Note Note: fFN was negative, cvx closed UA negative though spec. gr 1.025, pt advied to increas PO fluid intake. NST Reviewed and Verified by: Jenna Navarro
[2024-11-28 16:41] VITALS: BP 121/73; PULSE 115; TEMP 36.4
== END 2024-11-28 11:13 ==
LOC: BCD 08:41 → OBS 08:51
PROVIDERS: PCP Nurse Practitioner Family; Visit Provider Advanced Practice Midwife
DX: Z34.82 Encounter for supervision of other normal pregnancy, second trimester (principal); Z3A.21 21 weeks gestation of pregnancy
CPT/HCPCS: 59025; 82731

== ENCOUNTER 2024-12-06 10:04 | Outpatient (CLI) | payer OTHER, SELFPAY ==
[2024-12-06 10:37] VITALS: BP 121/76; PULSE 85; TEMP 36.6
[2024-12-06 10:57] VITALS: BP 121/76; PULSE 85
[2024-12-06 11:45] LABS: Glucose Negative (Negative)
[2024-12-06 11:48] LABS: COVID-19 PCR Negative (Negative); RSV PCR Negative (Negative)
--- NOTE | 2024-12-06 12:54 | W.PM.OBHPL1 ---
Date of service: 12/06/24 Time of Service: 12:54 Assessment and Plan Assessment and plan (1) : Status: Acute Assessment and plan: at 33 weeks. Malaise, achiness, chills, poor appetite, nasal congestion, pelvic discomfort. symptomatology clinically appears to be viral in etiology. She is afebrile. She has a category 1 heart rate tracing with occasional irregular contractions and a cervix that is closed, thick, and posterior. She is having IV hydration and systemic medications as indicated. If no improvement, would consider further evaluation with laboratory studies including CBC, CMP if indicated. OB-HPI Labor/Delivery History of Present Illness Reason for Visit: Feeling poorly Chief Complaint: Uterine Contractions; Other (Pelvic pain, pressure, back pain, achy, malaise, fatigue). CROW Calculator Estimated Delivery Date Method Current WG Current Estimate 01/21/25 Ultrasound #1 33w 3d Other Estimates 01/09/25 LMP (Certain) 35w 1d 01/18/25 Ultrasound #2 33w 6d Comments: Patient is a 29-year-old female who called yesterday and spoke with the midwives. She reached out today with complaints of achiness, malaise, fatigue, low pelvic pressure, possible contractions. She was seen and evaluated on the center. She has a category 1, reactive nonstress test. She was having irregular intermittent contractions. She had COVID and flu swabs which are negative. She urinalysis performed which is negative. She had a cervical examination which shows her cervix to be soft, though closed, thick, posterior, and appropriate for 33 weeks. She is receiving IV hydration and rest. My clinical impression is that of a viral source. Will continue to monitor History of Present Expected Delivery Route/Plan - CNM FOB - Tyler Sarthak (3rd baby together). BB yes to circ Plans to use nitrous, hopes to avoid epidural Specific Issues/Plan 1. History of kidney stones and pyelonephritis, frequent UTI 2. history of anxiety/PTSD- Takes lexapro as needed during episodes of anxiety, no longer taking lexapro daily, TSH 1.23 3. Desires cfDNA low risk male, Declines SMA and CF, AFP=nml risk for NTD 4. Vulvar and groin lesions- consider biopsy or removal after 5. Precordial catch syndrome 6. 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 7. PT referral for pelvic pain at 14wk 8. 27 wk glucola 143; 3 hr GTT -90, 174, 143, 92 Review of Systems Constitutional Constitutional: Reports as per HPI, Reports chills, Reports fatigue, Reports headache(s), Reports lethargy, Reports malaise and Reports poor appetite Eyes Eyes: Reports as per HPI ENT Ears, Nose, Mouth, and Throat: Reports as per HPI, Reports headache(s), Reports nasal congestion and Reports nasal discharge Cardiovascular Cardiovascular: Reports as per HPI and Reports system reviewed and no additional complaints, except as documented Respiratory Respiratory: Reports as per HPI and Reports system reviewed and no additional complaints, except as documented Gastrointestinal Gastrointestinal: Reports as per HPI and Reports system reviewed and no additional complaints, except as documented Genitourinary Genitourinary: Reports system reviewed and no additional complaints, except as documented Musculoskeletal Musculoskeletal: Reports as per HPI Neurologic Neurologic: Reports headache(s) Psychiatric Psychiatric: Reports system reviewed and no additional complaints, except as documented Endocrine Endocrine: Reports fatigue PFSH All Active Problems (Updated 12/06/24 @ 11:16 by Jenna Navarro) Pelvic pain affecting (Acute) SUNCT (short unilateral neuralgiform headache, conjunctival inj/tear) (Acute) History of nephrolithiasis (Acute) (Acute) Oral mucosal lesion (Acute) 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, squamous papilloma Chronic migraine without aura (Acute) PTSD (post-traumatic stress disorder) (Acute) Vulvar lesion (Acute) monitored by SR. 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), not intractable Viral sinusitis Right flank pain Migraine Amblyopia of left eye Missed menses Secondary post tonsillectomy hemorrhage Blepharitis of eyelid of right eye Disorder of sleep-wake cycle Lump of right breast Mastalgia Complicated UTI (urinary tract infection) Migraine headache without aura Chronic headache 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 Palomino Hematuria Renal colic on left side Family history of factor V Leiden mutation 08/2015 pt is neg for mutation. Amblyopia left eye 05/06 Herpes labialis 05/12 Closed fracture of lower end of radius and ulna right-05/15 Closed fracture of elbow right-07/06 Surgical History (Updated 06/26/24 @ 09:41 by Jennifer Sim) Hx of tonsillectomy With right soft palate lesion excision, 01/23/2024, return to OR on 01/29/2024 for post tonsillectomy hemorrhage control H/O lithotripsy 04/23/2021 History of ureteroscopy Hx of colonoscopy (02/12/21) [place] teeth extracted Family History (Updated 06/26/24 @ 10:02 by Jennifer Sim) Mother Factor V Leiden mutation with 2 blood clots, one following Mental disorder PTSD, anxiety Headache disorder Asthma Anxiety Diabetes Diabetes insipidus Father Personal history of malignant neoplasm skin cancer-not melanoma Asthma Skin cancer Hypertension Sister Diabetes Asthma Diabetes insipidus Paternal Grandfather Prostate cancer Maternal Aunt Hypothyroid Diabetes insipidus Maternal Grandmother Diabetes type 2 Diabetes insipidus Daughter Arvind thyroiditis Paternal Grandmother No problems noted. 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[employer], 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 [employer] Pets and animals: Yes (2 dogs, 2 cats) Pets and animals: cat(s) and dog(s) Sexually active: Yes Do you think of yourself as: straight/heterosexual Current gender identity: female What is your relationship status?: How often do you talk on the phone with friends or family?: three or more times per week How often do you get together with friends or relatives?: once per week Do you belong to any clubs or organized social groups?: no Panel score (0-1 are the most socially isolated patients): 2 Duration: 15-30 minutes/day Frequency: 3-4 times per week Afia/Hindu: None Special afia needs: No Seatbelt use: always Helmet use: Yes Drive intox or ride w/intox tractor 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 Date GA/Weeks # Preg Succ Route Wgt Sex Labor Lgth Anesthesia Location Prov Complic 02/20/17 39 No Yes vaginal 7 lb 12 oz Female active labor 3 hrs Tali Navarro CNM 07/12/18 40 No Yes vaginal 8 lb 10 oz Male 2 hrs. 30 min. Tali Navarro CNM Delivery Date: 02/20/17 Last Updated by: Jennifer De León Delivery Date: 07/12/18 Last Updated by: Jennifer De León Meds Allergies and Home Medications Allergies Allergy/AdvReac Type Severity Reaction Status Date / Time Sulfa (Sulfonamide Allergy Mild RASH Verified 11/12/24 13:33 Antibiotics) pollen extracts Allergy Unknown Verified 11/12/24 13:33 paroxetine AdvReac Mild rash Verified 11/12/24 13:33 Home Medications ?Medication ?Instructions ?Recorded ?Confirmed ?Type acetaminophen 500 mg tablet 1,000 mg PO PRN PRN 09/26/20 11/28/24 History (Acetaminophen Extra Strength) albuterol sulfate 90 mcg/actuation 2 puff inhalation Q4H PRN ##1 09/23/23 11/28/24 Rx aerosol inhaler (ProAir HFA) vitamins no.180-ferrous 1 tab PO DAILY #90 tabs 05/14/24 11/28/24 Rx fumarate 27 mg-folic acid 1 mg tablet ( Plus Vitamin-Mineral) fluticasone propionate 50 1 spray intranasal BID #16 grams 07/27/24 11/28/24 Rx mcg/actuation nasal spray,suspension (Flonase Allergy Relief) famotidine 20 mg tablet (Pepcid) 20 mg PO DAILY 10/22/24 11/28/24 History ondansetron HCl 4 mg tablet 4 mg PO Q8H PRN nausea and 11/15/24 11/28/24 Rx vomiting 30 days #30 tabs Exam Physical Exam Vital signs: Pulse BP 85 121/76 12/06/24 10:57 12/06/24 10:57 Detailed Labor and Delivery Exam Valdivia Score: Cervical Points Exam 0 1 2 3 Dilation Closed 1-2cm 3-4 cm 5-6cm Effacement 0-30% 40-50% 60-70% 80% Consistency Firm Medium Soft Station -3 -2 -1,0 +1,+2 Position Posterior Mid Anterior Risk Assessment Risk for Shoulder Dystocia Historical/Initial OB: NEGATIVE FOR: Pelvic Abnormality, Pre- BMI>30, Previous Shoulder Dystocia or Previous Macrosomia Risk for Pre-Eclampsia Yes, if one or more: NEGATIVE FOR: Hx Pre-E/Gest HTN, Chronic HTN, Multiple Gestation, Pre-gestational DM, Renal Disease, Systemic Lupus or APA Syndrome Yes, if 2 or more: NEGATIVE FOR: Nulliparity, Age>= 35 yrs, >10yr btwn pregnancies, BMI>30, ethinicty, Mother/Sister w/ Pre-E or Previous IUGR Risk for Post- Hemorrhage Initial: NEGATIVE FOR: Multiple Gestation, Previous PPH, Known Clotting Deficiency, Grand Multiparity or Anticoagulation Risks Reviewed Risks Reviewed Upon Admission: Yes
[2024-12-06] MEDS: Acetaminophen 325 MG TAB 650 MG PO (15:23)
[2024-12-06 16:00] VITALS: TEMP 36.5
--- NOTE | 2024-12-06 16:02 | DSE_ITS ---
Date of service: 12/06/24 Time of Service: 16:02 DS: Diagnosis Discharge Diagnosis (1) : Status: Acute Asessment and Plan: Patient seen and examined this afternoon. Less frequent contractions. Overall feeling still crummy but better. She is able to tolerate oral intake. She is afebrile. Baby's been moving and active. My primary working diagnosis is a viral syndrome. She will go home and rest, take Tylenol, push fluids. Continue to monitor. If her contractions increase or worsen, she will return for further evaluation. All questions answered Discharge Plan Disposition Patient Disposition: Other Disposition Not Listed Condition: Good Condition: Good Discharge Details Reason For Visit: Feeling poorly Attending Provider: Karmen Carmen Primary Care Provider: Raiza Cruz [facility] Course Hospital Course: Patient seen on the center for evaluation of abdominal discomfort, weakness, fatigue, malaise. She had negative COVID swab, negative flu test, negative urinalysis. Cervix is closed, thick, long, posterior. Occasional irregular contractions. She received 1 L of fluid, Tylenol, and was able to tolerate oral intake. She will have short interval follow-up and be seen as scheduled. Home Meds and New Rx's Prescriptions: No Action Plus Vitamin-Mineral 27 mg iron- 1 mg tablet 1 tab PO DAILY Qty: 90 4RF albuterol sulfate [ProAir HFA] 90 mcg/actuation HFA aerosol inhaler 2 puff Inhalation Q4H PRN Qty: 1 1RF Rx Instructions: Use 2 puffs 15 min prior to excercise and q4hr prn cough/wheeze fluticasone propionate [Flonase Allergy Relief] 50 mcg/actuation spray,suspension 1 spray intranasal BID Qty: 16 3RF Rx Instructions: administer into each nostril famotidine [Pepcid] 20 mg tablet 20 mg PO DAILY ondansetron HCl 4 mg tablet 4 mg PO Q8H PRN (Reason: nausea and vomiting) 30 Days Qty: 30 2RF acetaminophen [Acetaminophen Extra Strength] 500 mg Tablet 1,000 mg PO PRN PRN Discharge Instructions Activity:: Activity as Tolerated Activity:: Activity as Tolerated Diet:: As Tolerated OB:DS Summary Contraception Discussed Contraception Discussed: No, Status at Discharge Functional status at discharge: independent ambulation Overall status at discharge: patient is progressing back to baseline Mental Status: mental status grossly normal Speech and Movement: speech and movement normal Mood: congruent mood Affect: normal affect Quality:SDOH Health Related Social Needs: Health related social needs details Not concerned abou t mice. States she has cats that take of them. Exam Physical Exam Vital signs: Pulse BP 85 121/76 12/06/24 10:57 12/06/24 10:57 PFSH All Active Problems (Updated 12/06/24 @ 11:16 by Jenna Navarro) Pelvic pain affecting (Acute) SUNCT (short unilateral neuralgiform headache, conjunctival inj/tear) (Acute) History of nephrolithiasis (Acute) (Acute) Oral mucosal lesion (Acute) 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, squamous papilloma Chronic migraine without aura (Acute) PTSD (post-traumatic stress disorder) (Acute) Vulvar lesion (Acute) monitored by BLISTER RUST ERADICATOR Anxiety disorder (Acute) Exercise-induced asthma (Acute 12/16/14) Precordial catch syndrome (Acute 05/29/14) Medical History (Updated 12/06/24 @ 11:16 by Jenna Navarro) Elevated glucose nml 3 hr GTT Family history of thyroid disease Allergy to seafood Chronic tonsillitis 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), not intractable Viral sinusitis Right flank pain Migraine Amblyopia of left eye Missed menses Secondary post tonsillectomy hemorrhage Blepharitis of eyelid of right eye Disorder of sleep-wake cycle Lump of right breast Mastalgia Complicated UTI (urinary tract infection) Migraine headache without aura Chronic headache 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 Palomino Hematuria Renal colic on left side Family history of factor V Leiden mutation 08/2015 pt is neg for mutation. Amblyopia left eye 05/06 Herpes labialis 05/12 Closed fracture of lower end of radius and ulna right-05/15 Closed fracture of elbow right-07/06 Surgical History (Updated 06/26/24 @ 09:41 by Jennifer Sim) Hx of tonsillectomy With right soft palate lesion excision, 01/23/2024, return to OR on 01/29/2024 for post tonsillectomy hemorrhage control H/O lithotripsy 04/23/2021 History of ureteroscopy Hx of colonoscopy (02/12/21) [place] teeth extracted Family History (Updated 06/26/24 @ 10:02 by Jennifer Sim) Mother Factor V Leiden mutation with 2 blood clots, one following Mental disorder PTSD, anxiety Headache disorder Asthma Anxiety Diabetes Diabetes insipidus Father Personal history of malignant neoplasm skin cancer-not melanoma Asthma Skin cancer Hypertension Sister Diabetes Asthma Diabetes insipidus Paternal Grandfather Prostate cancer Maternal Aunt Hypothyroid Diabetes insipidus Maternal Grandmother Diabetes type 2 Diabetes insipidus Daughter Arvind thyroiditis Paternal Grandmother No problems noted. 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[employer], 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 [employer] Pets and animals: Yes (2 dogs, 2 cats) Pets and animals: cat(s) and dog(s) Sexually active: Yes Do you think of yourself as: straight/heterosexual Current gender identity: female What is your relationship status?: How often do you talk on the phone with friends or family?: three or more times per week How often do you get together with friends or relatives?: once per week Do you belong to any clubs or organized social groups?: no Panel score (0-1 are the most socially isolated patients): 2 Duration: 15-30 minutes/day Frequency: 3-4 times per week Afia/Mandaen: None Special afia needs: No Seatbelt use: always Helmet use: Yes Drive intox or ride w/intox light truck driver: No Water heater temp set <120 deg: Yes Working smoke detector in home: Yes Fire extinguisher in home: Yes Carbon monox detector in home: Yes Firearms in home: Yes Firearms unloaded and locked: No Do you feel safe at home: Yes Do you feel safe in your relationship?: Yes Victim of physical abuse: No Victim of emotional abuse: No Victim of sexual abuse: No History History 3 Para 2 Hx # Term Pregnancies 2 Multiple births 0 Hx # Pregnancies 0 Ectopic pregnancies 0 AB induced 0 Hx Number of Living Children 2 AB spontaneous 0 Past Pregnancies Del. Date GA/Weeks # Preg Succ Route Wgt Sex Labor Lgth Anesth esia Location Prov Complic 02/20/17 39 No Yes vaginal 7 lb 12 oz Female active labor 3 hrs Tali Navarro CNM 07/12/18 40 No Yes vaginal 8 lb 10 oz Male 2 hrs. 30 min. Tali Navarro CNM Delivery Date: 02/20/17 Last Updated by: Jennifer De León Delivery Date: 07/12/18 Last Updated by: Jennifer De León DS: Data Vitals/I&O Vitals and I&O: Vital Signs Temperature 97.9 F 12/06/24 10:37 Pulse 85 12/06/24 10:57 Pulse 85 12/06/24 10:37 Blood Pressure 121/76 12/06/24 10:57 Blood Pressure 121/76 12/06/24 10:37 Pain Level 5 12/06/24 15:23 Intake & Output 12/05/24 12/06/24 12/06/24 23:59 11:59 23:59 Weight 5.855 oz Data Completed and Pending Labs on day of discharge: Labs from last 24 hours 12/06/24 12/06/24 11:10 10:40 Urine Color Yellow Urine Clarity Clear Urine pH 7.0 Ur Specific Orange 1.010 Urine Protein Negative Urine Ketones Negative Urine Blood Negative Urine Nitrite Negative Urine Bilirubin Negative Urine Urobilinogen 0.2 Ur Leukocyte Esterase Negative Urine Glucose Negative COVID-19 Source Nasopharynx SARS-CoV-2 (PCR) Negative Influenza Type A (PCR) Negative Influenza Type B (PCR) Negative RSV (PCR) Negative
--- NOTE | 2024-12-25 11:54 | W.OBNST ---
Date of service: 12/06/24 Time of Service: 16:00 NST Evaluation Reason for NST Reasons for Nonstress Test: FALSE LABOR Reason for NST Other: Flu like symptoms Gestational Age Gestational Age in Weeks and Days: 35 Weeks and 3Days Test and Monitor Explained Test/Monitor Explained: Test Explained, Monitor Explained and Patient Verbalized Understanding Vital Signs Blood Pressure: 121/76 Pulse: 85 Temperature: 97.7 F Weight: 5.855 oz NST Information Date on Monitor: 12/06/24 Time on Monitor: 10:30 Date off Monitor: 12/06/24 Time off Monitor: 16:00 Total Time on Monitor: 330 NST Interventions: PO Hydration Contraction Frequency: q10-20 NST Evaluation Patient States Movement: Present FHR Baseline: 135 Variability: Moderate 6-25 bpm Accelerations: 15x15 Decelerations: None NST Results: Reactive Note Ultrasound Done: N/A. NST Note Note: Category 1, reactive NST NST Reviewed and Verified by: Karmen Carmen
[2024-12-25 11:55] VITALS: BP 121/76; PULSE 85; TEMP 36.5
== END 2024-12-06 16:00 | disposition other institution (70) ==
LOC: BCD 10:06 → OBS 10:36
PROVIDERS: PCP Nurse Practitioner Family; Visit Provider Obstetrics & Gynecology
DX: O47.03 False labor before 37 completed weeks of gestation, third trimester (principal); Z3A.35 35 weeks gestation of pregnancy; R50.9 Fever, unspecified
CPT/HCPCS: 87637; 96360; 59025; 81003

== ENCOUNTER 2024-12-20 12:48 | Outpatient (CLI) | payer OTHER, SELFPAY ==
[2024-12-20 13:59] VITALS: BP 115/68; PULSE 78
[2024-12-20 14:20] VITALS: BP 115/68; PULSE 78; RESP 16; TEMP 36.7
[2024-12-20 14:30] LABS: Abs Immature Grans 0.04 10^3/uL (0.0-0.06); HCT 32.2 % (36.0-46.0); HGB 10.9 g/dL (11.2-15.7); Immature Grans % 0.5 %; MCH 30.3 pg (27.0-33.0); MCHC 33.9 % (32.0-36.0); MCV 89 fL (80-95); MPV 9.3 fL (8.0-11.0); Platelet Count 180 10^3/uL (130-400); RBC 3.60 10^6/uL (3.93-5.22); RDW 12.0 % (11.7-14.6); RDW-SD 39.2 fL; WBC 8.75 10^3/uL (4.4-10.8)
[2024-12-20 14:55] LABS: ALT 11 U/L (14-59); AST 11 U/L (15-37); Albumin 2.3 g/dL (3.4-5.0); Alkaline Phosphatase 115 U/L (46-116); Anion Gap 8.6 mmol/L (3-11); BUN 6 mg/dL (7-18); Bilirubin, Total 0.2 mg/dL (0.2-1.0); CO2 27.4 mmol/L (21.0-32.0); Calcium 9.6 mg/dL (8.5-10.1); Chloride 102 mmol/L (98-107); Estimated GFR 131.75 (mL/min/1.73m2); Glucose 79 mg/dL (74-106); Potassium 3.6 mmol/L (3.5-5.1); Sodium 138 mmol/L (136-145); Total Protein 6.0 g/dL (6.4-8.2)
--- NOTE | 2024-12-20 16:13 | W.OBNST ---
Date of service: 12/20/24 Time of Service: 16:13 NST Evaluation Reason for NST Reasons for Nonstress Test: OTHER, SEE COMMENT Reason for NST Other: Overall malaise Gestational Age Gestational Age in Weeks and Days: 35 Weeks and 3Days Test and Monitor Explained Test/Monitor Explained: Test Explained and Monitor Explained Vital Signs Blood Pressure: 115/68 Pulse: 78 Temperature: 98.1 F Urine Results Urine Protein: Negative Urine Ketones: Negative Urine Glucose: Negative Urine Blood: Negative NST Information Date on Monitor: 12/20/24 Time on Monitor: 13:45 Date off Monitor: 12/20/24 Time off Monitor: 14:20 Total Time on Monitor: 35 NST Interventions: PO Hydration NST Evaluation Patient States Movement: Present FHR Baseline: 135 Variability: Moderate 6-25 bpm Accelerations: 10x10 Decelerations: None NST Results: Reactive Note Ultrasound Done: N/A. NST Note Note: Category 1, reactive NST. NST Reviewed and Verified by: Karmen Carmen
[2024-12-20 16:14] VITALS: BP 115/68; PULSE 78; TEMP 36.7
[2024-12-20 16:37] LABS: Glucose Negative (Negative)
[2024-12-20 16:55] LABS: PROTEIN < 6.0 mg/dL
== END 2024-12-20 15:10 ==
LOC: BCD 12:49 → OBS 13:54
PROVIDERS: PCP Nurse Practitioner Family; Visit Provider Obstetrics & Gynecology
DX: Z3A.35 35 weeks gestation of pregnancy (principal); O99.891 Other specified diseases and conditions complicating pregnancy; R53.81 Other malaise
CPT/HCPCS: 36415; 80053; 59025; 81003; 82565; 84156; 85025

== ENCOUNTER 2024-12-25 11:38 | Outpatient (REF) | payer OTHER, SELFPAY | END 2024-12-25 11:39 | disposition home or self-care (01) | LOC: LBN 11:38 | PROVIDERS: PCP Nurse Practitioner Family; Visit Provider Obstetrics & Gynecology | DX: Z34.93 Encounter for supervision of normal pregnancy, unspecified, third trimester | CPT/HCPCS: 87081 ==

== ENCOUNTER 2025-01-16 08:07 | Inpatient (IN) | payer OTHER, SELFPAY ==
[2025-01-16] VITALS (33 sets, daily range): BP systolic 81–132; BP diastolic 48–78; PULSE 67–119; TEMP 36.7; O2SAT 100
--- NOTE | 2025-01-16 08:10 | W.PM.OBHPL1 ---
Date of service: 01/16/25 Time of Service: 08:10 Assessment and Plan Assessment and plan (1) : Status: Acute Assessment and plan: Patient is a 29-year-old 3 para 2 here today for elective labor induction at term. She has a favorable cervix with a Logan score of 8. She has a category 1, reactive heart rate tracing with occasional irregular contractions that are approximately every 8 minutes and moderate in intensity. With previous deliveries, she has utilized nitrous oxide for analgesia which she intends to do this time as well. She wishes to avoid an epidural unless needed. She also is desirous of holding off on artificial rupture of membranes unless needed for labor augmentation. All of her questions were answered. Risk benefits and alternatives of labor induction were discussed. Her risk profile was reviewed. We will proceed with the Pitocin induction of labor. Laboratory studies are pending. All questions were answered. Anticipate vaginal (2) Encounter for induction of labor: Status: Acute OB-HPI Labor/Delivery History of Present Illness Reason for Visit: Elective labor induction at 39 weeks Chief Complaint: Scheduled Induction of Labor Indication for Induction: Other. CROW Calculator Estimated Delivery Date Method Current WG Current Estimate 01/21/25 Ultrasound #1 39w 2d Other Estimates 01/09/25 LMP (Certain) 41w 0d 01/18/25 Ultrasound #2 39w 5d Comments: Patient is a 29-year-old 3 para 2 with 2 previous vaginal births. She is 39 weeks and 2 days today with a favorable cervix here for elective labor induction. She has a reactive, category 1 heart rate tracing. The risk, benefits, and alternatives of labor induction were discussed with the patient. Her plan is for pain relief with nitrous oxide as needed. She is agreeable to an IV with Pitocin augmentation of her labor. She wishes to avoid epidural, and would like to delay artificial rupture of membranes until near delivery, or if labor not progressing. Overall, she has a reassuring maternal and status. concerns are that she did have an elevated 1 hour glucose tolerance test with a normal 3-hour. She does have a history of renal calculi and frequent urinary tract infections though no recently. History of Present Expected Delivery Route/Plan SAM - MD REYES - Tyler De León (3rd baby together). BB yes to circ Plans to use nitrous, hopes to avoid epidural Specific Issues/Plan 29 yo ( x2) dated by 7 wk US (CROW: 01/21/2025) - Rh+ / Rub I / VZV I / GBS neg (as of 12/25/2024) - 28 wk 1hr OGTT 143; no failed values on 3hr OGTT - Tdap (done 11/12) / RSV / flu / COVID pending - Plans - Contraceptive plans: pending 1. History of kidney stones and pyelonephritis, frequent UTI 2. history of anxiety/PTSD - Takes lexapro as needed during episodes of anxiety, no longer taking lexapro daily, TSH 1.23 3. Desires cfDNA low risk male, Declines SMA and CF, AFP=nml risk for NTD 4. Vulvar and groin lesions - consider biopsy or removal after 5. Precordial catch syndrome 6. 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 7. Pelvic pain - At 14 weeks; PT referral Scheduled for IOL 01/17/2024 @ 0700 Narrative: Labor induction for this 29-year-old 3 para 2 at term with a favorable cervix. Pitocin augmentation. She is having a boy baby whose name is David and plans circumcision for her male . All questions were answered today. Risks were reviewed Review of Systems Narrative: Patient is feeling well this morning. Baby's been moving and active. She is having strong contractions approximately every 8 to 10 minutes. She has no leaking fluid or vaginal bleeding. She denies signs or symptoms of preeclampsia including but not limited to cephalgia, visual changes, epigastric pain, nausea or vomiting. Plan for labor induction was reviewed today. Consent acknowledged. All systems reviewed & are unremarkable except as noted in HPI and below Eyes Eyes: Reports as per HPI and Reports system reviewed and no additional complaints, except as documented ENT Ears, Nose, Mouth, and Throat: Reports system reviewed and no additional complaints, except as documented and Reports as per HPI Cardiovascular Cardiovascular: Reports system reviewed and no additional complaints, except as documented, Denies chest pain and Denies irregular heart rhythm Respiratory Respiratory: Reports system reviewed and no additional complaints, except as documented, Denies chest congestion and Denies cough Gastrointestinal Gastrointestinal: Reports system reviewed and no additional complaints, except as documented Genitourinary Genitourinary: Reports system reviewed and no additional complaints, except as documented Neurologic Neurologic: Reports system reviewed and no additional complaints, except as documented PFSH All Active Problems (Updated 01/16/25 @ 08:18 by Karmen Carmen DO) Encounter for induction of labor (Acute) Pelvic pain affecting (Acute) SUNCT (short unilateral neuralgiform headache, conjunctival inj/tear) (Acute) History of nephrolithiasis (Acute) (Acute) Oral mucosal lesion (Acute) 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, squamous papilloma Chronic migraine without aura (Acute) PTSD (post-traumatic stress disorder) (Acute) Vulvar lesion (Acute) monitored by TRANSPORTATION MAINTENANCE WORKER Anxiety disorder (Acute) Exercise-induced asthma (Acute 12/16/14) Precordial catch syndrome (Acute 05/29/14) Medical History Elevated glucose nml 3 hr GTT Family history of thyroid disease Allergy to seafood Chronic tonsillitis 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), not intractable Viral sinusitis Right flank pain Migraine Amblyopia of left eye Missed menses Secondary post tonsillectomy hemorrhage Blepharitis of eyelid of right eye Disorder of sleep-wake cycle Lump of right breast Mastalgia Complicated UTI (urinary tract infection) Migraine headache without aura Chronic headache 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 Palomino Hematuria Renal colic on left side Family history of factor V Leiden mutation 08/2015 pt is neg for mutation. Amblyopia left eye 05/06 Herpes labialis 05/12 Closed fracture of lower end of radius and ulna right-05/15 Closed fracture of elbow right-07/06 Surgical History Hx of tonsillectomy With right soft palate lesion excision, 01/23/2024, return to OR on 01/29/2024 for post tonsillectomy hemorrhage control H/O lithotripsy 04/23/2021 History of ureteroscopy Hx of colonoscopy (02/12/21) [place] teeth extracted Family History Mother Factor V Leiden mutation with 2 blood clots, one following Mental disorder PTSD, anxiety Headache disorder Asthma Anxiety Diabetes Diabetes insipidus Father Personal history of malignant neoplasm skin cancer-not melanoma Asthma Skin cancer Hypertension Sister Diabetes Asthma Diabetes insipidus Paternal Grandfather Prostate cancer Maternal Aunt Hypothyroid Diabetes insipidus Maternal Grandmother Diabetes type 2 Diabetes insipidus Daughter Arvind thyroiditis Paternal Grandmother No problems noted. 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[employer], 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 [employer] Pets and animals: Yes (2 dogs, 2 cats) Pets and animals: cat(s) and dog(s) Sexually active: Yes Do you think of yourself as: straight/heterosexual Current gender identity: female What is your relationship status?: How often do you talk on the phone with friends or family?: three or more times per week How often do you get together with friends or relatives?: once per week Do you belong to any clubs or organized social groups?: no Panel score (0-1 are the most socially isolated patients): 2 Duration: 15-30 minutes/day Frequency: 3-4 times per week Afia/Sikhism: None Special afia needs: No Seatbelt use: always Helmet use: Yes Drive intox or ride w/intox rivet driver: No Water heater temp set <120 deg: Yes Working smoke detector in home: Yes Fire extinguisher in home: Yes Carbon monox detector in home: Yes Firearms in home: Yes Firearms unloaded and locked: No Do you feel safe at home: Yes Do you feel safe in your relationship?: Yes Victim of physical abuse: No Victim of emotional abuse: No Victim of sexual abuse: No History History 3 Para 2 Hx # Term Pregnancies 2 Multiple births 0 Hx # Pregnancies 0 Ectopic pregnancies 0 AB induced 0 Hx Number of Living Children 2 AB spontaneous 0 Past Pregnancies Del. Date GA/Weeks # Preg Succ Route Wgt Sex Labor Lgth Anesthesia Location Prov Complic 02/20/17 39 No Yes vaginal 7 lb 12 oz Female active labor 3 hrs Tali Navarro CNM 07/12/18 40 No Yes vaginal 8 lb 10 oz Male 2 hrs. 30 min. Tali Navarro CNM Delivery Date: 02/20/17 Last Updated by: Jennifer De León Delivery Date: 07/12/18 Last Updated by: Jennifer De León Meds Allergies and Home Medications Allergies Allergy/AdvReac Type Severity Reaction Status Date / Time Sulfa (Sulfonamide Allergy Mild RASH Verified 01/07/25 09:04 Antibiotics) pollen extracts Allergy Unknown Verified 01/07/25 09:04 paroxetine AdvReac Mild rash Verified 01/07/25 09:04 Home Medications ?Medication ?Instructions ?Recorded ?Confirmed ?Type acetaminophen 500 mg tablet 1,000 mg PO PRN PRN 09/26/20 01/07/25 History (Acetaminophen Extra Strength) albuterol sulfate 90 mcg/actuation 2 puff inhalation Q4H PRN ##1 09/23/23 01/07/25 Rx aerosol inhaler (ProAir HFA) vitamins no.180-ferrous 1 tab PO DAILY #90 tabs 05/14/24 01/07/25 Rx fumarate 27 mg-folic acid 1 mg tablet ( Plus Vitamin-Mineral) fluticasone propionate 50 1 spray intranasal BID #16 grams 07/27/24 01/07/25 Rx mcg/actuation nasal spray,suspension (Flonase Allergy Relief) famotidine 20 mg tablet (Pepcid) 20 mg PO DAILY 10/22/24 01/07/25 History ondansetron HCl 4 mg tablet 4 mg PO Q8H PRN nausea and 11/15/24 01/07/25 Rx vomiting 30 days #30 tabs Exam Physical Exam Vital Signs Reviewed: Yes Constitutional Constitutional: no acute distress Detailed Labor and Delivery Exam Dilation: 3 Effacement (%): 50 station: -2 Cervix position: anterior Consistency: soft Logan Score: Cervical Points Exam 0 1 2 3 Dilation Closed 1-2cm 3-4 cm 5-6cm Effacement 0-30% 40-50% 60-70% 80% Consistency Firm Medium Soft Station -3 -2 -1,0 +1,+2 Position Posterior Mid Anterior LOGAN Score(Cervical Ripeness Score): 8 Amniotic Membrane Status: Intact Monitor Mode: External Contraction Frequency(min): 8 Contraction Duration(sec): 60 Contraction Intensity: Moderate/Strong Fetus A Heart Rate Baseline: 130 Monitor Accelerations: 15 X 15 Monitor Decelerations: None Presentation: Cephalic Categories: Category I Est. Weight: 8 lb HEENT Exam HEENT Exam: Normal Neck Exam Neck Exam: Normal Detailed Respiratory Exam Respiratory: Absent rales, rhonchi, wheezes or crackles Detail Cardiovascular Exam Cardiovascular: Present RRR, S1 and S2; Absent murmur or click Abdominal Exam Abdominal Exam: Normal Extremities Exam Extremities Exam: Normal Back/Spine/Pelvis Exam Pelvis Adequate: Yes Skin Exam Skin Exam: Normal Neurological Exam Neurological Exam: Normal Psychiatric Exam Psychiatric Exam: Normal Risk Assessment Risk for Shoulder Dystocia Historical/Initial OB: NEGATIVE FOR: Pelvic Abnormality, Pre- BMI>30, Previous Shoulder Dystocia or Previous Macrosomia Increased Risk?: No Date/Initial: 01/16/2025 Risk for Pre-Eclampsia Date Initiated/Initials: 01/16/2025 Yes, if one or more: NEGATIVE FOR: Hx Pre-E/Gest HTN, Chronic HTN, Multiple Gestation, Pre-gestational DM, Renal Disease, Systemic Lupus or APA Syndrome Yes, if 2 or more: NEGATIVE FOR: Nulliparity, Age>= 35 yrs, >10yr btwn pregnancies, BMI>30, ethinicty, Mother/Sister w/ Pre-E or Previous IUGR Risk for Post- Hemorrhage Initial: NEGATIVE FOR: Multiple Gestation, Previous PPH, Known Clotting Deficiency, Grand Multiparity or Anticoagulation 40 Weeks: NEGATIVE FOR: Anemia, hgb<10, Low platelets (thrombocytopenia), Gestation HTN or Pre-E, Polyhydraminios or EFW>4500gms Counseled re: Active Management: Yes Date/Initials: 01/16/2025 Risks Reviewed Risks Reviewed Upon Admission: Yes
[2025-01-16 08:34] LABS: Abs Immature Grans 0.04 10^3/uL (0.0-0.06); HCT 32.8 % (36.0-46.0); HGB 11.0 g/dL (11.2-15.7); Immature Grans % 0.4 %; MCH 29.5 pg (27.0-33.0); MCHC 33.5 % (32.0-36.0); MCV 88 fL (80-95); MPV 9.5 fL (8.0-11.0); Platelet Count 169 10^3/uL (130-400); RBC 3.73 10^6/uL (3.93-5.22); RDW 12.5 % (11.7-14.6); RDW-SD 40.1 fL; WBC 9.65 10^3/uL (4.4-10.8)
[2025-01-16] MEDS: Lactated Ringers 1,000 ML 125 ML IV (09:19)
[2025-01-16] MEDS: Oxytocin/Normal Saline 30 UNIT/500 ML BAG 2 UNITS IV (09:20)
[2025-01-16] MEDS: Normal Saline Flush 10 ML SYR IVP (09:22)
--- NOTE | 2025-01-16 10:22 | PGE_ITS ---
Date of service: 01/16/25 Time of Service: 10: Assessment and Plan Assessment and plan (1) : Status: Acute (2) Encounter for induction of labor: Status: Acute (3) heart rate decelerations affecting management of mother: Status: Acute Assessment and plan: Patient had a heart rate deceleration. Pitocin currently on hold while baby recovers. Currently category 2 strip with moderate variability baseline heart rate post deceleration 180s, now returning to more normal baseline of 150 s. Will await augmentation for further recovery. All questions answered. OR notified. Patient currently stable Objective Abnormal lab results 01/16/25 Range/Units 08:19 RBC 3.73 L (3.93-5.22) 10^6/uL Hgb 11.0 L (11.2-15.7) g/dL Hct 32.8 L (36.0-46.0) % Temp Pulse BP Pulse Ox 98.1 F 110 H 128/71 100 01/16/25 09:18 01/16/25 10:18 01/16/25 09:18 01/16/25 10:18 Laboratory Results WBC 9.65 10^3/uL (4.4-10.8) 01/16/25 08:19 RBC 3.73 10^6/uL (3.93-5.22) L 01/16/25 08:19 Hgb 11.0 g/dL (11.2-15.7) L 01/16/25 08:19 Hct 32.8 % (36.0-46.0) L 01/16/25 08:19 MCV 88 fL (80-95) 01/16/25 08:19 MCH 29.5 pg (27.0-33.0) 01/16/25 08:19 MCHC 33.5 % (32.0-36.0) 01/16/25 08:19 RDW 12.5 % (11.7-14.6) 01/16/25 08:19 Plt Count 169 10^3/uL (130-400) 01/16/25 08:19 MPV 9.5 fL (8.0-11.0) 01/16/25 08:19 Immature Gran % 0.4 % 01/16/25 08:19 Neutrophils % 66.9 % 01/16/25 08:19 Lymphocytes % 25.5 % 01/16/25 08:19 Monocytes % 6.4 % 01/16/25 08:19 Eosinophils % 0.4 % 01/16/25 08:19 Basophils % 0.4 % 01/16/25 08:19 Nucleated RBC % 0.0 % (0.0-0.3) 01/16/25 08:19 Absolute Neutrophils 6.45 10^3/uL (1.2-6.7) 01/16/25 08:19 Absolute Lymphocytes 2.46 10^3/uL (1.2-3.4) 01/16/25 08:19 Absolute Monocytes 0.62 10^3/uL (0.1-0.8) 01/16/25 08:19 Absolute Eosinophils 0.04 10^3/uL (0.0-0.7) 01/16/25 08:19 Absolute Basophils 0.04 10^3/uL (0.0-0.2) 01/16/25 08:19 Subjective Interval history since last seen: Called urgently to evaluate the patient who had a deceleration to the 60s for approximately [address] Schumacher present at bedside. Position villeda e, O2 placed, IV fluid bolus with resolution of the deceleration. Patient now has a reflexive tachycardia in the 170s with moderate variability. Continued occasional irregular contractions without Pitocin at this point. Results Hemoglobin/Hematocrit: Hgb 11.0 g/dL (11.2-15.7) L 01/16/25 08:19 Hct 32.8 % (36.0-46.0) L 01/16/25 08:19 Abnormal Lab Findings: Abnormal Labs 01/16/25 08:19 RBC 3.73 L Hgb 11.0 L Hct 32.8 L
--- NOTE | 2025-01-16 12:31 | W.PM.OBNL1 ---
Date of service: 01/16/25 Time of Service: 12:36 Contractions Monitor Mode: External Contraction Frequency(min): 3 Contraction Duration(sec): 60 Intensity: Moderate/Strong Fetus A Monitor: External (US) Heart Rate Baseline: 145 Presentation: Cephalic Variability: Moderate (6-25 BPM) Categories: Category I Accelerations: 15 X 15 Assessment and Plan Assessment and plan (1) : Status: Acute (2) Encounter for induction of labor: Status: Acute Assessment and plan: Continue labor induction with Pitocin. Slow gentle increase in IV Pitocin. Category 1 heart rate tracing with moderate variability. Anticipate vaginal. Patient tolerating without significant difficulties Objective Abnormal lab results 01/16/25 Range/Units 08:19 RBC 3.73 L (3.93-5.22) 10^6/uL Hgb 11.0 L (11.2-15.7) g/dL Hct 32.8 L (36.0-46.0) % Temp Pulse BP Pulse Ox 98.1 F 107 H 117/61 100 01/16/25 12:22 01/16/25 12:22 01/16/25 12:22 01/16/25 10:23 Laboratory Results WBC 9.65 10^3/uL (4.4-10.8) 01/16/25 08:19 RBC 3.73 10^6/uL (3.93-5.22) L 01/16/25 08:19 Hgb 11.0 g/dL (11.2-15.7) L 01/16/25 08:19 Hct 32.8 % (36.0-46.0) L 01/16/25 08:19 MCV 88 fL (80-95) 01/16/25 08:19 MCH 29.5 pg (27.0-33.0) 01/16/25 08:19 MCHC 33.5 % (32.0-36.0) 01/16/25 08:19 RDW 12.5 % (11.7-14.6) 01/16/25 08:19 Plt Count 169 10^3/uL (130-400) 01/16/25 08:19 MPV 9.5 fL (8.0-11.0) 01/16/25 08:19 Immature Gran % 0.4 % 01/16/25 08:19 Neutrophils % 66.9 % 01/16/25 08:19 Lymphocytes % 25.5 % 01/16/25 08:19 Monocytes % 6.4 % 01/16/25 08:19 Eosinophils % 0.4 % 01/16/25 08:19 Basophils % 0.4 % 01/16/25 08:19 Nucleated RBC % 0.0 % (0.0-0.3) 01/16/25 08:19 Absolute Neutrophils 6.45 10^3/uL (1.2-6.7) 01/16/25 08:19 Absolute Lymphocytes 2.46 10^3/uL (1.2-3.4) 01/16/25 08:19 Absolute Monocytes 0.62 10^3/uL (0.1-0.8) 01/16/25 08:19 Absolute Eosinophils 0.04 10^3/uL (0.0-0.7) 01/16/25 08:19 Absolute Basophils 0.04 10^3/uL (0.0-0.2) 01/16/25 08:19 ABO/Rh A Positive 01/16/25 08:19 Antibody Screen NEGATIVE 01/16/25 08:19 Results Hemoglobin/Hematocrit: Hgb 11.0 g/dL (11.2-15.7) L 01/16/25 08:19 Hct 32.8 % (36.0-46.0) L 01/16/25 08:19 Abnormal Lab Findings: Abnormal Labs 01/16/25 08:19 RBC 3.73 L Hgb 11.0 L Hct 32.8 L Pocus Exam Limited OB Exam DATE OF EXAM:: 01/16/25 TIME OF EXAM:: 12:32 PROVIDER THAT PERFORMED THE STUDY: Karmen Carmen Type of Exam: Pelvic OB Trans Abdominal REASON FOR EXAM: other ( position) indication: Deceleration Exam Complete. DIFFERENTAL DIAGNOSES: Transabdominal ultrasound performed for position confirmation and maternal reassurance. Transabdominal ultrasound performed confirming vertex position with back to the left small parts to the right. Posterior, fundal placenta, appropriate amniotic fluid
--- NOTE | 2025-01-16 14:45 | W.PM.OBNL1 ---
Date of service: 01/16/25 Time of Service: 14:45 Assessment and Plan Assessment and plan (1) Encounter for induction of labor: Status: Acute Assessment and plan: Term labor induction. Anticipate vaginal . Reassuring maternal and status Objective Abnormal lab results 01/16/25 Range/Units 08:19 RBC 3.73 L (3.93-5.22) 10^6/uL Hgb 11.0 L (11.2-15.7) g/dL Hct 32.8 L (36.0-46.0) % Temp Pulse BP Pulse Ox 98.1 F 81 115/60 100 01/16/25 14:24 01/16/25 14:24 01/16/25 14:24 01/16/25 10:23 Laboratory Results WBC 9.65 10^3/uL (4.4-10.8) 01/16/25 08:19 RBC 3.73 10^6/uL (3.93-5.22) L 01/16/25 08:19 Hgb 11.0 g/dL (11.2-15.7) L 01/16/25 08:19 Hct 32.8 % (36.0-46.0) L 01/16/25 08:19 MCV 88 fL (80-95) 01/16/25 08:19 MCH 29.5 pg (27.0-33.0) 01/16/25 08:19 MCHC 33.5 % (32.0-36.0) 01/16/25 08:19 RDW 12.5 % (11.7-14.6) 01/16/25 08:19 Plt Count 169 10^3/uL (130-400) 01/16/25 08:19 MPV 9.5 fL (8.0-11.0) 01/16/25 08:19 Immature Gran % 0.4 % 01/16/25 08:19 Neutrophils % 66.9 % 01/16/25 08:19 Lymphocytes % 25.5 % 01/16/25 08:19 Monocytes % 6.4 % 01/16/25 08:19 Eosinophils % 0.4 % 01/16/25 08:19 Basophils % 0.4 % 01/16/25 08:19 Nucleated RBC % 0.0 % (0.0-0.3) 01/16/25 08:19 Absolute Neutrophils 6.45 10^3/uL (1.2-6.7) 01/16/25 08:19 Absolute Lymphocytes 2.46 10^3/uL (1.2-3.4) 01/16/25 08:19 Absolute Monocytes 0.62 10^3/uL (0.1-0.8) 01/16/25 08:19 Absolute Eosinophils 0.04 10^3/uL (0.0-0.7) 01/16/25 08:19 Absolute Basophils 0.04 10^3/uL (0.0-0.2) 01/16/25 08:19 ABO/Rh A Positive 01/16/25 08:19 Antibody Screen NEGATIVE 01/16/25 08:19 Subjective Interval history since last seen: Patient seen. Category 1 heart rate tracing. Pitocin is at 5 milliunits. Patient is utilizing a birthing ball and moving and activity. She will use nitrous oxide when her contractions get more intense. She was offered cervical examination and declines at this point. All questions answered. Results Hemoglobin/Hematocrit: Hgb 11.0 g/dL (11.2-15.7) L 01/16/25 08:19 Hct 32.8 % (36.0-46.0) L 01/16/25 08:19 Abnormal Lab Findings: Abnormal Labs 01/16/25 08:19 RBC 3.73 L Hgb 11.0 L Hct 32.8 L
--- NOTE | 2025-01-16 18:41 | W.PM.OBNL1 ---
Date of service: 01/16/25 Time of Service: 18:41 Pelvic Exam Dilation: 6 Effacement (%): 80 station: -1 Cervix Position: mid Assessment and Plan Assessment and plan (1) Encounter for induction of labor: Status: Acute Assessment and plan: Continue labor induction. Vital signs are stable. Category 1 tracing. Anticipate vaginal . (2) : Status: Acute Objective Abnormal lab results 01/16/25 Range/Units 08:19 RBC 3.73 L (3.93-5.22) 10^6/uL Hgb 11.0 L (11.2-15.7) g/dL Hct 32.8 L (36.0-46.0) % Temp Pulse BP Pulse Ox 98.1 F 81 115/68 100 01/16/25 14:24 01/16/25 16:28 01/16/25 16:28 01/16/25 10:23 Laboratory Results WBC 9.65 10^3/uL (4.4-10.8) 01/16/25 08:19 RBC 3.73 10^6/uL (3.93-5.22) L 01/16/25 08:19 Hgb 11.0 g/dL (11.2-15.7) L 01/16/25 08:19 Hct 32.8 % (36.0-46.0) L 01/16/25 08:19 MCV 88 fL (80-95) 01/16/25 08:19 MCH 29.5 pg (27.0-33.0) 01/16/25 08:19 MCHC 33.5 % (32.0-36.0) 01/16/25 08:19 RDW 12.5 % (11.7-14.6) 01/16/25 08:19 Plt Count 169 10^3/uL (130-400) 01/16/25 08:19 MPV 9.5 fL (8.0-11.0) 01/16/25 08:19 Immature Gran % 0.4 % 01/16/25 08:19 Neutrophils % 66.9 % 01/16/25 08:19 Lymphocytes % 25.5 % 01/16/25 08:19 Monocytes % 6.4 % 01/16/25 08:19 Eosinophils % 0.4 % 01/16/25 08:19 Basophils % 0.4 % 01/16/25 08:19 Nucleated RBC % 0.0 % (0.0-0.3) 01/16/25 08:19 Absolute Neutrophils 6.45 10^3/uL (1.2-6.7) 01/16/25 08:19 Absolute Lymphocytes 2.46 10^3/uL (1.2-3.4) 01/16/25 08:19 Absolute Monocytes 0.62 10^3/uL (0.1-0.8) 01/16/25 08: Absolute Eosinophils 0.04 10^3/uL (0.0-0.7) 01/16/25 08:19 Absolute Basophils 0.04 10^3/uL (0.0-0.2) 01/16/25 08:19 ABO/Rh A Positive 01/16/25 08:19 Antibody Screen NEGATIVE 01/16/25 08:19 Subjective Interval history since last seen: Patient was seen and examined. Most recent cervical examination 5 to 6 cm, bulging bag water, 80%, -1 station, soft cervix. Category 1 heart rate tracing. Pitocin was at 7. Patient perceives adequate and appropriate contractions. Happy with progress. Results Hemoglobin/Hematocrit: Hgb 11.0 g/dL (11.2-15.7) L 01/16/25 08:19 Hct 32.8 % (36.0-46.0) L 01/16/25 08:19 Abnormal Lab Findings: Abnormal Labs 01/16/25 08:19 RBC 3.73 L Hgb 11.0 L Hct 32.8 L
--- NOTE | 2025-01-16 19:30 | W.PM.OBNL1 ---
Date of service: 01/16/25 Time of Service: 19:30 Pelvic Exam Dilation: 8 Effacement (%): 90 station: -1 Comments: Bulging bag water, declines artificial rupture Assessment and Plan Assessment and plan (1) Encounter for induction of labor: Status: Acute Assessment and plan: Induction of labor with Pitocin. Steady progress. Anticipate vaginal . Reassuring maternal and status Objective Abnormal lab results 01/16/25 Range/Units 08:19 RBC 3.73 L (3.93-5.22) 10^6/uL Hgb 11.0 L (11.2-15.7) g/dL Hct 32.8 L (36.0-46.0) % Temp Pulse BP Pulse Ox 98.1 F 96 H 111/58 L 100 01/16/25 14:24 01/16/25 18:41 01/16/25 18:41 01/16/25 10:23 Laboratory Results WBC 9.65 10^3/uL (4.4-10.8) 01/16/25 08:19 RBC 3.73 10^6/uL (3.93-5.22) L 01/16/25 08:19 Hgb 11.0 g/dL (11.2-15.7) L 01/16/25 08:19 Hct 32.8 % (36.0-46.0) L 01/16/25 08:19 MCV 88 fL (80-95) 01/16/25 08:19 MCH 29.5 pg (27.0-33.0) 01/16/25 08:19 MCHC 33.5 % (32.0-36.0) 01/16/25 08:19 RDW 12.5 % (11.7-14.6) 01/16/25 08:19 Plt Count 169 10^3/uL (130-400) 01/16/25 08:19 MPV 9.5 fL (8.0-11.0) 01/16/25 08:19 Immature Gran % 0.4 % 01/16/25 08:19 Neutrophils % 66.9 % 01/16/25 08:19 Lymphocytes % 25.5 % 01/16/25 08:19 Monocytes % 6.4 % 01/16/25 08:19 Eosinophils % 0.4 % 01/16/25 08:19 Basophils % 0.4 % 01/16/25 08:19 Nucleated RBC % 0.0 % (0.0-0.3) 01/16/25 08:19 Absolute Neutrophils 6.45 10^3/uL (1.2-6.7) 01/16/25 08:19 Absolute Lymphocytes 2.46 10^3/uL (1.2-3.4) 01/16/25 08:19 Absolute Monocytes 0.62 10^3/uL (0.1-0.8) 01/16/25 08:19 Absolute Eosinophils 0.04 10^3/uL (0.0-0.7) 01/16/25 08:19 Absolute Basophils 0.04 10^3/uL (0.0-0.2) 01/16/25 08:19 ABO/Rh A Positive 01/16/25 08:19 Antibody Screen NEGATIVE 01/16/25 08:19 Subjective Interval history since last seen: Patient seen and examined in cervical exam at patient's request. She is feeling more pressure. She is a category 1 heart rate tracing. She is contractions every 2 to 3 minutes which are strong in nature. Results Hemoglobin/Hematocrit: Hgb 11.0 g/dL (11.2-15.7) L 01/16/25 08:19 Hct 32.8 % (36.0-46.0) L 01/16/25 08:19 Abnormal Lab Findings: Abnormal Labs 01/16/25 08:19 RBC 3.73 L Hgb 11.0 L Hct 32.8 L
--- NOTE | 2025-01-16 20:48 | OBVDS_ITS ---
Date of service: 01/16/25 Time of Service: 20:48 OB Labor/ Delivery Information Baby A Delivery Delivery Method: Spontaneaous Presentation: Vertex Vertex Position: Right Occipital Anterior Cord Description-Baby A: 3 Vessels Amniotic Fluid: Clear Quantitative Blood Loss: 50 Delivery Outcome: Liveborn Note: Patient had a Pitocin induction of labor. She used nitrous oxide throughout the course of her labor for analgesia. At approximately 8 PM, she was noted to have complete cervical dilation and with good maternal effort she pushed the vertex to the point of spontaneous rupture of membranes. She had clear fluid and delivered after approximately 3 pushes with good maternal effort over an intact perineum. There was no evidence of nuchal cord. Shoulders followed without difficulty. A three-vessel cord was noted. After delayed cord clamping the cord was clamped x 2 and father transected the cord appropriately. Baby and mom were skin to skin for the first hour of life. She had a spontaneous delivery of the placenta in a Malcolm manner. Placenta was noted to be com pletely intact. There was no evidence of vulvar, perineal, vaginal, or cervical lacerations. Qualitative blood loss was 50 mL. Uterus is firm and below the umbilicus postdelivery. She received Pitocin for uterine tonicity. Providers Doctor: Karmen Carmen Nurse: Qi Yoder Nurse: Nicole Laboy Labor/Delivery Information Number of Babies in Womb: 1 Steroids Given: None Reason Steroids Not Administered: N/A Group Beta Strep: Negative Antibiotics Administered: No Rubella Status: Immune Blood Type: A+ Varicella Immunity: Immune Maternal Complications: None Shoulder Dystocia: No Stages of Labor Onset of Labor Date: 01/16/25 Complete Dilatation Date: 01/16/25 Complete Dilatation Time: 20:18 ROM Baby A: 01/16/25 ROM Baby A: 20:18 ROM Total Time- Baby A: [id number] Delivery Date-Baby A: 01/16/25 Infant Delivery Time-Baby A: 20:20 Labor Stage 2 Duration: 2 minutes Placenta Delivery Date-Baby A: 01/16/25 Placenta Delivery Time-Baby A: 20:26 Labor-Stage 3 Duration: 6 minutes Placenta Cultured: No Placenta Status: Delivered Baby A Infant Gender: Male Gestational Status: Term (39-41.6 wks) Gestational Age in Weeks/Days: 39 Weeks and 2 Days Score-1 Minute Interval(Baby A) Heart Rate-1 minute: 100 BPM or Greater Respiratory Effort- 1 minute: Spontaneous/Strong Cry Muscle Tone-1 minute: Active Movement Reflex Response-1 minute: Prompt Response Color-1 minute: Pallor or Cyanosis Total Score-1 minute: 8 Score-5 Minute Interval(Baby A) Heart Rate- 5 minute: 100 BPM or Greater Respiratory Effort-5 minute: Spontaneous/Strong Cry Muscle Tone-5 minute: Active Movement Reflex Response-5 minute: Prompt Response Color-5 minute: Bluish Hands or Feet Total Score- 5 minute: 9
[2025-01-16] MEDS: Ibuprofen 600 MG TAB PO (20:56)
[2025-01-16] MEDS: Acetaminophen 325 MG TAB 650 MG PO (20:56)
[2025-01-17] MEDS: Hamamelis Leaf/Glycerin 100 EACH BOX PR (00:13)
[2025-01-17] MEDS: Dibucaine 1% 28 GM TUBE TP ×2 (00:13→18:07)
[2025-01-17 00:22] VITALS: BP 122/60; PULSE 88
[2025-01-17] MEDS: Acetaminophen 325 MG TAB 650 MG PO ×5 (01:16→23:47)
[2025-01-17 01:30] VITALS: BP 113/70; PULSE 99; RESP 16; O2SAT 98
[2025-01-17] MEDS: Ibuprofen 600 MG TAB PO ×3 (05:15→20:27)
[2025-01-17 07:30] VITALS: BP 103/63; PULSE 88; TEMP 36.4
--- NOTE | 2025-01-17 08:19 | W.PM.OBPNV1 ---
Date of service: 01/17/25 Time of Service: 08:19 Assessment and Plan Assessment and plan (1) (normal spontaneous vaginal delivery): Status: Acute Assessment and plan: day #1 status postnormal spontaneous vaginal delivery after labor induction at term, active. Male David. Patient desires circumcision performed tomorrow. Continue to rest, breast-feed, strong bonding observed. All questions answered. Subjective Subjective Interval history: Patient seen and examined. Doing well. No issues or concerns. Lochia is physiologic. Breast-feeding without difficulty. Patient has not yet slept significantly. I did encourage rest and recovery today. She and her would like their male circumcised. This will be performed tomorrow. Informed consent obtained. baby status: Nursing well and Strong Bonding Observed feeding status: Exclusively breast feeding Exam Physical Exam Vital signs: Temp Pulse Resp BP Pulse Ox 97.6 F 88 16 103/63 98 01/17/25 07:30 01/17/25 07:30 01/17/25 01:30 01/17/25 07:30 01/17/25 01:30 Vital Signs Reviewed: Yes Constitutional Constitutional: no acute distress HEENT Exam HEENT Exam: Normal Neck Exam Neck Exam: Normal Respiratory Exam Respiratory Exam: Normal Abdominal Exam Comments: Soft, nontender Fundal Exam Fundus: Below Umbilicus and Firm Extremities Exam Extremity Exam: Normal; negative Calf Tenderness Neurological Exam Neurological Exam: Normal Psychiatric Exam Psychiatric Exam: Normal Results Hemoglobin/Hematocrit: Hgb 11.0 g/dL (11.2-15.7) L 01/16/25 08:19 Hct 32.8 % (36.0-46.0) L 01/16/25 08:19 Abnormal Lab Findings: Abnormal Labs 01/16/25 08:19 RBC 3.73 L Hgb 11.0 L Hct 32.8 L
[2025-01-17 14:30] VITALS: BP 109/67; PULSE 73; TEMP 36.8
[2025-01-17 19:13] VITALS: BP 100/72; PULSE 88; RESP 16; TEMP 36.9
[2025-01-17 20:10] VITALS: BP 112/68; PULSE 86; RESP 17; TEMP 36.8; O2SAT 98
[2025-01-17] MEDS: Calcium Carbonate *TUMS* 500 MG CHEW 1000 MG PO (23:47)
[2025-01-18] MEDS: Ibuprofen 600 MG TAB PO (03:35)
--- NOTE | 2025-01-18 08:07 | W.PM.OBPNV1 ---
Date of service: 01/18/25 Time of Service: 08:07 Assessment and Plan Assessment and plan (1) (normal spontaneous vaginal delivery): Status: Acute Assessment and plan: day #2 status postnormal spontaneous vaginal . circumcision performed at parents request today. Patient is breast-feeding. A slight decrease in milk supply with the baby at 7% down for weight. Baby will have a weight check. Strategies discussed. Patient would like to discharge home today. Follow-up in the office in 2 and 6 weeks. Exam Physical Exam Vital signs: Temp Pulse Resp BP Pulse Ox 98.2 F 86 17 112/68 98 01/17/25 20:10 01/17/25 20:10 01/17/25 20:10 01/17/25 20:10 01/17/25 20:10 Vital Signs Reviewed: Yes Constitutional Constitutional: no acute distress HEENT Exam HEENT Exam: Normal Neck Exam Neck Exam: Normal Respiratory Exam Respiratory Exam: Normal Cardiovascular Exam Cardiovascular Exam: Normal Abdominal Exam Comments: Soft, non-tender Fundal Exam Fundus: Below Umbilicus and Firm Extremities Exam Extremity Exam: Normal; negative Calf Tenderness or Edema Neurological Exam Neurological Exam: Normal Psychiatric Exam Psychiatric Exam: Normal Results Hemoglobin/Hematocrit: Hgb 11.0 g/dL (11.2-15.7) L 01/16/25 08:19 Hct 32.8 % (36.0-46.0) L 01/16/25 08:19 Abnormal Lab Findings: Abnormal Labs 01/16/25 08:19 RBC 3.73 L Hgb 11.0 L Hct 32.8 L
[2025-01-18 08:10] VITALS: BP 106/72; PULSE 82; RESP 16; TEMP 36.6; O2SAT 97
--- NOTE | 2025-01-18 08:12 | DSE_ITS ---
Date of service: 01/18/25 Time of Service: 08:12 DS: Diagnosis Discharge Diagnosis (1) (normal spontaneous vaginal delivery): Status: Acute Asessment and Plan: day #2 status post vaginal after labor induction at term, elective. Male infant David breast-feeding without difficulty. Will follow- up in the office in 2 and 6 weeks. Discharge Plan Disposition Patient Disposition: Home Condition: Good Discharge Details Reason For Visit: Term Labor Induction, Elective Admit Date/Time: 01/16/25 08:07 Admit Provider: Karmen Carmen Attending Provider: Karmen Carmen Primary Care Provider: Raiza Cruz Hospital Course Hospital Course: Patient was admitted to the [facility] center for labor induction at 39 weeks and 2 days electively. On presentation, she was azam every 6 to 8 minutes and had Pitocin augmentation of her labor. She used nitrous oxide for analgesia during her labor. She progressed to the point that she was completely dilated and with good maternal effort had a vaginal of a male named Colto n. She had uncomplicated course. Qualitative blood loss at the time of delivery was 50 cc. She is breast-feeding, ambulating, tolerating regular diet with good pain control and physiologic lochia day #2. She will be seen in the office in 2 and 6 weeks. All questions were answered. Home Meds and New Rx's Prescriptions: New ibuprofen 600 mg tablet 600 mg PO Q6H PRNQty: 60 1RF No Action Plus Vitamin-Mineral 27 mg iron- 1 mg tablet 1 tab PO DAILY Qty: 90 4RF albuterol sulfate [ProAir HFA] 90 mcg/actuation HFA aerosol inhaler 2 puff Inhalation Q4H PRN Qty: 1 1RF Rx Instructions: Use 2 puffs 15 min prior to excercise and q4hr prn cough/wheeze fluticasone propionate [Flonase Allergy Relief] 50 mcg/actuation spray,suspension 1 spray intranasal BID Qty: 16 3RF Rx Instructions: administer into each nostril famotidine [Pepcid] 20 mg tablet 20 mg PO DAILY ondansetron HCl 4 mg tablet 4 mg PO Q8H PRN (Reason: nausea and vomiting) 30 Days Qty: 30 2RF acetaminophen [Acetaminophen Extra Strength] 500 mg Tablet 1,000 mg PO PRN PRN Discharge Instructions Additional Instructions: Follow-up with Dr. Carmen in 2 and 6 weeks Stand Alone Forms: Instructions, Post Vaginal Deliver Activity:: Pelvic rest Equipment/Supplies:: Blood Glucose Monitor Diet:: As Tolerated Discharge Orders Discharge Orders: Discharge Order (Routine); Ordered 01/18/25 Ordered By: Karmen Carmen OB:DS Summary Summary Vaginal Delivery Method: Spontaneaous Episiotomy Description: None Laceration Description: None Laceration Extension: N/A Contraception Discussed Contraception Discussed: Yes, [place] Gender-Baby A: Male weight: 7 lb 9.166 oz Status at Discharge Functional status at discharge: independent ambulation Overall status at discharge: patient is progressing back to baseline Mental Status: mental status grossly normal Speech and Movement: speech and movement normal Mood: congruent mood Affect: normal affect Quality:SDOH Health Related Social Needs: Health related social needs details Not concerned abou t mice. States she has cats that take of them. Exam Physical Exam Vital signs: Temp Pulse Resp BP Pulse Ox 98.2 F 86 17 112/68 98 01/17/25 20:10 01/17/25 20:10 01/17/25 20:10 01/17/25 20:10 01/17/25 20:10 Constitutional Comments: See physical exam from progress note dated 01/18/2025 [facility] All Active Problems (normal spontaneous vaginal delivery) (Acute) Vaginal delivery 01/16/2025. Induction of labor at term. Male infant David Apgars 8 and 9. Qualitative blood loss 50 mL. 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, squamous papilloma Chronic migraine without aura (Acute) PTSD (post-traumatic stress disorder) (Acute) Vulvar lesion (Acute) monitored by OIL TANKER CAPTAIN Anxiety disorder (Acute) Exercise-induced asthma (Acute 12/16/14) Precordial catch syndrome (Acute 05/29/14) Medical History Elevated glucose nml 3 hr GTT Family history of thyroid disease Allergy to seafood Chronic tonsillitis 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), not intractable Viral sinusitis Right flank pain Migraine Amblyopia of left eye Missed menses Secondary post tonsillectomy hemorrhage Blepharitis of eyelid of right eye Disorder of sleep-wake cycle Lump of right breast Mastalgia Complicated UTI (urinary tract infection) Migraine headache without aura Chronic headache 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 Palomino Hematuria Renal colic on left side Family history of factor V Leiden mutation 08/2015 pt is neg for mutation. Amblyopia left eye 05/06 Herpes labialis 05/12 Closed fracture of lower end of radius and ulna right-05/15 Closed fracture of elbow right-07/06 Surgical History Hx of tonsillectomy With right soft palate lesion excision, 01/23/2024, return to OR on 01/29/2024 for post tonsillectomy hemorrhage control H/O lithotripsy 04/23/2021 History of ureteroscopy Hx of colonoscopy (02/12/21) [place] teeth extracted Family History Mother Factor V Leiden mutation with 2 blood clots, one following Mental disorder PTSD, anxiety Headache disorder Asthma Anxiety Diabetes Diabetes insipidus Father Personal history of malignant neoplasm skin cancer-not melanoma Asthma Skin cancer Hypertension Sister Diabetes Asthma Diabetes insipidus Paternal Grandfather Prostate cancer Maternal Aunt Hypothyroid Diabetes insipidus Maternal Grandmother Diabetes type 2 Diabetes insipidus Daughter Arvind thyroiditis Paternal Grandmother No problems noted. 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[employer] Pets and animals: Yes (2 dogs, 2 cats) Pets and animals: cat(s) and dog(s) Sexually active: Yes Do you think of yourself as: straight/heterosexual Current gender identity: female What is your relationship status?: How often do you talk on the phone with friends or family?: three or more times per week How often do you get together with friends or relatives?: once per week Do you belong to any clubs or organized social groups?: no Panel score (0-1 are the most socially isolated patients): 2 Duration: 15-30 minutes/day Frequency: 3-4 times per week Afia/Buddhist: None Special afia needs: No Seatbelt use: always Helmet use: Yes Drive intox or ride w/intox car pick up driver: No Water heater temp set <120 deg: Yes Working smoke detector in home: Yes Fire extinguisher in home: Yes Carbon monox detector in home: Yes Firearms in home: Yes Firearms unloaded and locked: No Do you feel safe at home: Yes Do you feel safe in your relationship?: Yes Victim of physical abuse: No Victim of emotional abuse: No Victim of sexual abuse: No History History 3 Para 2 Hx # Term Pregnancies 2 Multiple births 0 Hx # Pregnancies 0 Ectopic pregnancies 0 AB induced 0 Hx Number of Living Children 2 AB spontaneous 0 Past Pregnancies Del. Date GA/Weeks # Preg Succ Route Wgt Sex Labor Lgth Anesth esia Location Prov [facility] 02/20/17 39 No Yes vaginal 7 lb 12 oz Female active labor 3 hrs Tali Navarro CNM 07/12/18 40 No Yes vaginal 8 lb 10 oz Male 2 hrs. 30 min. Tali Navarro CNM Delivery Date: 02/20/17 Last Updated by: Jennifer De León Delivery Date: 07/12/18 Last Updated by: Jennifer De León DS: Data Vitals/I&O Vitals and I&O: Vital Signs Temperature 98.2 F 01/17/25 20:10 Temperature Source Oral 01/17/25 20:10 Pulse 86 01/17/25 20:10 Pulse Rhythm Regular 01/17/25 20:10 Respiratory Rate 17 01/17/25 20:10 Respiratory Depth Normal 01/17/25 20:10 Blood Pressure 112/68 01/17/25 20:10 Blood Pressure Mean 82 01/17/25 20:10 Pulse Oximetry 98 01/17/25 20:10 Oxygen Delivery Method Room Air 01/16/25 09:11 Oxygen Flow Rate 0 01/16/25 09:11 Intake & Output 01/17/25 01/17/25 01/18/25 11:59 23:59 11:59 Intake Total 1467.866 / 1467.866 Output Total 550 / 550 Balance 917.866 / 917.866 Intake: IV 1467.866 / 1467.866 Output: Urine 550 / 550 Other: Urine Color Yellow Yellow
[2025-01-18] MEDS: Dibucaine 1% 28 GM TUBE TP (11:09)
== END 2025-01-18 14:25 | disposition home or self-care (01) | DRG 806 ==
PROVIDERS: Admitting Provider Obstetrics & Gynecology; PCP Nurse Practitioner Family; Visit Provider Obstetrics & Gynecology
DX: O99.344 Other mental disorders complicating childbirth (principal); O99.354 Diseases of the nervous system complicating childbirth; Z37.0 Single live birth; F41.9 Anxiety disorder, unspecified; F43.10 Post-traumatic stress disorder, unspecified; R07.2 Precordial pain; Z3A.39 39 weeks gestation of pregnancy; O99.52 Diseases of the respiratory system complicating childbirth; J45.990 Exercise induced bronchospasm; G43.709 Chronic migraine without aura, not intractable, without status migrainosus; G44.059 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), not intractable
CPT/HCPCS: 36415; 86850; 86900; 86901; 85025